=== PATIENT | female | born 1965 | race Caucasian/White ===

== ENCOUNTER 2018-06-10 16:48 | Inpatient (IN) ==
[2018-06-10] MEDS ORDERED: Naloxone 0.4 MG/ML INJ IVP PRN (18:27)
[2018-06-10] MEDS: 0.9 % Sodium Chloride 1,000 ML IVC SCH ×2 (18:55→22:17)
[2018-06-10] MEDS: Thiamine (B-1) 100 MG in D5% in Water 50 ML IVPB SCH (18:57)
[2018-06-10] MEDS ORDERED: Albuterol 2.5 MG/3 ML NEBULIZER IH PRN (19:37)
[2018-06-10 19:38] LABS: INR 0.9; Prothrombin Time 10.4 Seconds (9.4-12.1)
[2018-06-10 19:40] LABS: Activated Partial Thrombo Time 24.4 Seconds (26.0-36.0)
[2018-06-10 19:43] LABS: Basophils % 0.3 %; Eosinophils # 0.4 K/mcL (0.0-0.6); Eosinophils % 3.6 %; Hematocrit 35.2 % (35.3-44.9); Hemoglobin 10.9 g/dL (11.5-15.4); Immature Granulocytes % 0.2 % (0-4); Lymphocytes # 3.5 K/mcL (0.6-4.6); Lymphocytes % 34.8 %; Mean Corpuscular Hemoglobin 26.6 pg (28.0-33.3); Mean Corpuscular Volume 85.9 fL (83.0-100.0); Mean Platelet Volume 9.6 fL (9.4-12.4); Monocytes # 0.7 K/mcL (0.0-1.3); Monocytes % 6.6 %; Neutrophils # 5.4 K/mcL (1.6-8.9); Platelet Count 189 K/mcL (140-400); Red Cell Distribution Width 13.1 % (11.5-14.5); Segmented Neutrophils % 54.5 %
[2018-06-10] MEDS ORDERED: Norepinephrine 4 MG in D5% in Water 250 ML IVC SCH (19:45)
[2018-06-10 19:53] LABS: VBG HCO3 21 mEq/L (21-27); VBG PCO2 56 mmHg (41-51); VBG PH 7.18 pH Units (7.32-7.42); VBG PO2 69 mmHg (25-50)
[2018-06-10] MEDS: Folic Acid 1 MG TABLET PO SCH (19:53)
[2018-06-10] MEDS: Hydrocortisone Sodium Succ 100 MG/2 ML VIAL IVP SCH ×2 (19:53→23:29)
[2018-06-10] MEDS ORDERED: Levofloxacin 750 MG/150 ML 750 MG/150 ML BAG IVPB SCH (20:00)
[2018-06-10 20:08] LABS: Acetaminophen < 10 mcg/mL (10-20); Alanine Aminotransferase 13 Units/L (7-52); Albumin/Globulin Ratio 1.4 (1.1-2.2); Alkaline Phosphatase 79 Units/L (34-104); Aspartate Amino Transferase 15 Units/L (13-39); BUN/Creatinine Ratio 18 (6-26); Bilirubin,Total 0.2 mg/dL (0.3-1.0); Blood Urea Nitrogen 34 mg/dL (6-20); Calcium 7.5 mg/dL (8.6-10.3); Carbon Dioxide 20 mEq/L (23-29); Chloride 113 mEq/L (98-107); Globulin 2.1 g/dL (2.4-3.5); Glucose 109 mg/dL (70-105); Magnesium 1.8 mg/dL (1.6-2.6); Osmolality,Calculated 298 (280-300); Phosphorous 5.4 mg/dL (2.7-4.5); Potassium 4.3 mEq/L (3.5-5.1); Salicylate < 2.5 mg/dL (15.0-30.0); Sodium 140 mEq/L (136-145); Total Protein 5.1 g/dL (6.4-8.9); eGFR For Non-African Americans 27 (> 60)
[2018-06-10 20:11] LABS: ABG Base Excess -7 mEq/L (-2 to 3); ABG HCO3 19 mEq/L (21-27); ABG Oxygen Saturation 96 % (95-98); ABG PCO2 42 mmHg (35-45); ABG PH 7.27 pH Units (7.32-7.45); ABG PO2 94 mmHg (85-104); ABG TCO2 21 mEq/L (20-26)
[2018-06-10] MEDS: Ipratropium/Albuterol Neb 3 ML IH SCH ×2 (20:12→23:59)
[2018-06-10 20:20] LABS: Thyroid Stimulating Hormone 0.656 mcIU/mL (0.340-5.600)
--- NOTE | 2018-06-10 20:53 | Internal Med History&Physical ---
Date of Encounter: 06/10/18 Time of Encounter: 19:30 Internal Medicine - H&P: HPI Chief complaint: near syncope; shock Admitted From: Hospital to Hospital Transfer Plans for Post Hospital Care: Home History of present illness: Ms. Bills is a 53 year old female who presents in transfer from [facility] Emergency Department. She presented there with complaints and sensation of near syncope. Reportedly, her felt that she passed out but patient denied it. She was quite hypotensive and appeared to be in hypovolemic shock when she presented there. She was fluid resuscitated and had a central line placed by the ER physician. She was then transferred to [facility] ICU for ongoing care. When she arrived here to the intensive care unit, I saw her shortly after arrival. She remains hypotensive but has stable MAPS above 60. She is somnolent but easily arousable. She appears be confused at times and then coherent most of the time. After a prolonged discussion with patient, she admi ts to taking strips of Suboxone and other street drugs with intention of "getting high". She denies any intent of trying to hurt herself or kill herself. She denies any fevers or chills. She has had a cough and bronchitis, however. She had been on outpatient antibiotics recently for her bronchitis. She appears to be quite dehydrated with very dry mucous membranes and skin tenting on exam. She admits to having had some nausea and vomiting. I reviewed some old records and note that she had bilateral adrenal adenomas on recent MRI imaging. She confirmed the adenomas. She denies any history of adrenal insufficiency, however, and states that she has never heard of that term. She does not take any chronic steroids. She does admit to heavy smoking and history of COPD. I reviewed her labs from [place] and note that she has acute renal failure. However, after fluid resuscitation, her renal function is already improving with repeat labs here in the ICU. Reportedly, she had chest pain upon presentation to the ER at [place]. She denies any chest pain presently. Her initial troponin was negative. On repeat EKG, it appears to be negative for ischemia. Regarding drugs of abuse, she denies any alcohol use, salicylate abuse, acetaminophen abuse, ethylene glycol abuse, or other prescription drug abuse. She states she uses Suboxone roughly once a week and that she buys it on the street. She denies any other drugs of abuse. Her drug screen is positive for amphetamines as well as opiates. She denies use of amphetamines, however. Past Med Surg Social Fam HX - Past Medical History Attestation: Yes The following information was validated with the patient. Source: patient, old records reviewed, other ([facility] records) Medical history: asthma, COPD, diabetes, GERD, hypertension Additional medical history: precancerous polyps Psychiatric history: depression - Past Surgical History Surgical History: , hysterectomy, other Additional surgical history: carpal tunnes, rhinoplasty. colonoscopy - Social History Smoking Status: Current every day smoker Smokeless Tobacco Status: No Alcohol use: none Drug use: opiates Current living situation: Home, With Family Activity Level: Independent ambulation Recent Out of Country Travel Within the Last 8 Weeks: No - Family History Mother Hx Family Respiratory Disorders: No Hx Family Endocrine Disorder: No Father Hx Family Respiratory Disorders: Yes Hx Family Genitourinary Disorders: No Internal Medicine - H&P: Meds Albuterol Sulfate [Proair Hfa] 1 puff IH QID PRN 11/12/15 [History] Dicyclomine [Bentyl] 20 mg PO QID PRN #20 capsule 11/12/15 [Rx] Cetirizine HCl [Zyrtec] 10 mg PO DAILY 10/02/16 [History] Fluticasone/Salmeterol [Advair Hfa 115-21 Mcg Inhaler] 12 gm IH DAILY 10/02/16 [History] Ipratropium/Albuterol Neb [Duoneb] 3 ml IH Q6HR PRN 10/02/16 [History] Paroxetine HCl [Paxil] 60 mg PO DAILY 10/02/16 [History] Tiotropium [Spiriva] 18 mcg IH 0700 10/02/16 [History] clonazePAM [Klonopin] 0.5 mg PO BID 10/02/16 [History] Tizanidine HCl 4 mg PO TID #15 tablet 09/22/17 [Rx] Atenolol [Tenormin] 25 mg PO DAILY 06/10/18 [History] Lisinopril [Zestril] 20 mg PO DAILY 06/10/18 [History] Allergy/AdvReac Type Severity Reaction Status Date / Time Penicillins [PCN] Allergy Anaphylaxis Verified 11/18/17 11:53 - Constitutional Constitutional: no chills, no fever(s), no night sweats - EENT Eyes: no blurry vision, no change in vision Ears: no ear pain, no tinnitus Nose, mouth and throat: no nasal congestion, no sinus pressure, no sore throat - Cardiovascular Cardiovascular ROS IM: lightheadedness, other (+ near syncope), no chest pain, no dyspnea, no orthopnea, no syncope - Respiratory Respiratory: cough, wheezing, chest congestion, no hemoptysis, no excessive phlegm production, no change in phlegm color, no pain with cough - Gastrointestinal Gastrointestinal: heartburn, nausea, vomiting, no abdominal pain, no diarrhea, no hematemesis, no hematochezia, no melena - Genitourinary Genitourinary: no dysuria, no flank pain, no hematuria Additional comments: + decreased urine output - Musculoskeletal Musculoskeletal ROS IM: arthralgias, back pain, no myalgias - Integumentary Integumentary IM: no rash, no jaundice - Neurological Neurological ROS: confusion, weakness, no convulsions, no dizziness, no focal weakness, no frequent falls, no headache(s) - Psychiatric Psychiatric: behavioral changes, confusion, no anxiety, no auditory hallucinations, no depression, no homicidal ideation, no suicidal ideation, no visual hallucinations - Endocrine Endocrine IM: no cold intolerance, no heat intolerance, no polydipsia, no polyuria - Allergic/Immunologic Allergic/Immunologic: wheezing, no GI upset with certain foods - Constitutional Vitals: Temp Pulse Resp BP Pulse Ox 98.3 F 57 17 98/59 98 06/10/18 18:23 06/10/18 20:00 06/10/18 20:00 06/10/18 20:00 06/10/18 18:23 General appearance: Present: cooperative, disheveled, A&O X 2 Exam: somnolent, easily arousable, confused intermittently and then responds appropri ately at times looks moderately dehydrated - Head Head exam: Present: atraumatic, normal inspection - Eye Eye exam: Present: EOMI, PERRL (pupils dilated at roughly 5-6 mm; react to light appropriately). Absent: scleral icterus Pupils: Present: normal accommodation - ENT ENT exam: Present: mucous membranes dry, normal exam, normal oropharynx Additional comments: very dry mucous membranes - Neck Neck exam general surgery: Present: full ROM, supple. Absent: tenderness, nuchal rigidity, thyromegaly - Respiratory Respiratory exam: Present: CTAB, rhonchi. Absent: chest wall tenderness, rales, respiratory distress, wheezes - Cardiovascular Cardiovascular exam: Present: distant heart sounds, RRR, +S1, +S2. Absent: diastolic murmur, systolic murmur Additional comments: ectopic beats noted at times - GI/Abdominal GI/Abdominal exam: Present: normal bowel sounds, soft. Absent: guarding, hepatomegaly, mass, rebound, splenomegaly, tenderness - Extremities Exam Extremities exam: Present: full ROM, warm, radial pulses palpable and symmetrical. Absent: calf tenderness, joint swelling, normal capillary refill (slightly delayed at 3 seconds), mottling, pedal edema, tenderness - Back Exam Back exam: Absent: CVA tenderness (L), CVA tenderness (R) - Neurological Exam Neurological exam: Present: alert, CN II-XII intact, strengths equal and symetr throughout. Absent: motor sensory deficit, oriented X3 (oriented x 2 and i ntermittenty confused), no focal deficits, facial droop, speech deficit - Psychiatric Psychiatric exam: Present: agitated, anxious. Absent: depressed, flat affect, homicidal ideation, suicidal ideation - Skin Skin exam: Present: dry, intact, warm. Absent: rash Additional comments: + skin tenting Internal Med - H&P Results - Labs CBC & Chem 7: 06/10/18 19:25 06/10/18 19:25 Labs: Short CBC 06/10/18 Range/Units 19:25 WBC 10.0 (4.3-11.1) K/mcL Hgb 10.9 L (11.5-15.4) g/dL Hct 35.2 L (35.3-44.9) % Plt Count 189 (140-400) K/mcL Neutrophils # 5.4 (1.6-8.9) K/mcL BMP 06/10/18 19:25 Sodium 140 Potassium 4.3 Chloride 113 H Carbon Dioxide 20 L BUN 34 H Creatinine 1.93 H Glucose 109 H Calcium 7.5 L Liver Function 06/10/18 Range/Units 19:25 Total Bilirubin 0.2 L (0.3-1.0) mg/dL AST 15 (13-39) Units/L ALT 13 (7-52) Units/L Alkaline Phosphatase 79 (34-104) Units/L Albumin 3.0 L (3.5-5.7) g/dL - ABG Interpretation Interpretation: ABG interpreted by me ABG results: 06/10/18 06/10/18 19:45 20:08 ABG pH 7.27 L ABG pCO2 42 ABG pO2 94 ABG HCO3 19 L ABG Total CO2 21 ABG O2 Saturation 96 ABG Base Excess -7 L VBG pH 7.18 L* VBG pCO2 56 H VBG pO2 69 H VBG HCO3 21 Interpretation: metabolic acidosis (non-gap) - EKG Data -: EKG Interpreted by Myself EKG shows normal: sinus rhythm - EKG Data Prior EKG available for review: no EKG comments: 06/10/18 21:24 Sinus rhythm; PVC and PAC, no acute ST-T changes - Diagnostic Studies Chest x-ray Status: image reviewed by me (large heart otherwise negative) - Assessment and plan (1) Hypovolemic shock Current Visit: Yes Status: Acute Assessment and plan: 1. Patient fluid resuscitated at [place] and in ICU with a total of 4 liters saline boluses. 2. Continue MIV fluids. 3. Levophed ordered for hemodynamic support. 4. Stress dose steroids ordered given her presentation of shock and history of adrenal adenomas. 5. Blood cultures ordered and antibiotics started for the remote possibility of septic shock (low suspicion). 6. Will trend lactate levels and monitor hemodynamically. (2) Overdose Current Visit: Yes Status: Acute Assessment and plan: 1. Patient admits to Suboxone abuse "on the street" in an attempt "to get high". 2. She denies any attempt to hurt or kill herself. 3. Will monitor in ICU closely. 4. Patient protecting her airway and easily arousable presently. Should that change, we will secure airway and ventilate if necessary. Qualifiers: Encounter type: initial encounter Injury intent: accidental or unintentional Qualified Code(s): T50.901A - Poisoning by unspecified drugs, medicaments and biological substances, accidental (unintentional), initial encounter (3) Acute renal failure Current Visit: Yes Status: Acute Assessment and plan: 1. Likely pre-renal etiology from hypovolemic shock. 2. S/P fluid resuscitation. 3. Continue MIV. 4. Monitor I/O and urine output. 5. Nephrology on consult. 6. CT abdomen/pelvis to rule out obstructive uropathy. Qualifiers: Acute renal failure type: unspecified Qualified Code(s): N17.9 - Acute kidney failure, unspecified (4) Near syncope Current Visit: Yes Status: Acute Assessment and plan: 1. Likely to drug abuse in the setting of hypovolemic shock. 2. Will monitor on telemetry and hemodynamically. 3. Will trend troponins and EKG's. 4. ECHO ordered. 5. 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 (5) DVT prophylaxis Current Visit: Yes Status: Acute Assessment and plan: 1. Heparin SQ. - Time Spent With Patient Note: 50 minutes critical care time spent assessing, examining, and treating patient in the ICU.
[2018-06-10 21:23] LABS: Bilirubin,Urine Negative (Negative); Blood,Urine Small (Negative); Clarity,Urine Clear (Clear); Color,Urine Yellow (Yellow); Glucose,Urine (UA) Normal (Normal); Ketones,Urine Negative (Negative); Leukocyte Esterase,Urine Negative (Negative); Nitrite,Urine Negative (Negative); Protein,Urine Trace mg/dL (Neg-Trace); Urobilinogen,Urine Normal (Normal)
[2018-06-10 21:27] LABS: Bacteria,Urine None Seen per hpf (None-Few); Hyaline Casts,Urine None Seen per lpf (None-Few); Squamous Epithelial Cell,Urine Moderate per lpf (None-Few); WBC,Urine 0-3 per hpf (0-3)
[2018-06-10 21:45] LABS: Troponin I < 0.03 ng/mL (< 0.04)
[2018-06-10] MEDS: *HR* Heparin 5,000 UNIT/ML VIAL SQ SCH (23:29)
[2018-06-11 03:15] LABS: Basophils % 0.3 %; Hematocrit 34.1 % (35.3-44.9); Hemoglobin 10.8 g/dL (11.5-15.4); Immature Granulocytes % 0.3 % (0-4); Lymphocytes % 12.8 %; Mean Corpuscular HGB Conc 31.7 g/dL (31.6-35.5); Mean Corpuscular Hemoglobin 26.5 pg (28.0-33.3); Mean Corpuscular Volume 83.8 fL (83.0-100.0); Mean Platelet Volume 9.5 fL (9.4-12.4); Monocytes # 0.1 K/mcL (0.0-1.3); Monocytes % 1.6 %; Neutrophils # 6.8 K/mcL (1.6-8.9); Platelet Count 183 K/mcL (140-400); Red Blood Count 4.07 M/mcL (3.82-4.97); Red Cell Distribution Width 13.1 % (11.5-14.5)
[2018-06-11 03:34] LABS: Albumin 3.1 g/dL (3.5-5.7); Albumin/Globulin Ratio 1.4 (1.1-2.2); Bilirubin,Total 0.4 mg/dL (0.3-1.0); Calcium 7.9 mg/dL (8.6-10.3); Globulin 2.2 g/dL (2.4-3.5); Potassium 4.8 mEq/L (3.5-5.1); Total Protein 5.3 g/dL (6.4-8.9)
[2018-06-11] MEDS: Ipratropium/Albuterol Neb 3 ML IH SCH ×5 (04:12→20:52)
[2018-06-11 05:30] LABS: ABG Base Excess -5 mEq/L (-2 to 3); ABG HCO3 22 mEq/L (21-27); ABG Oxygen Saturation 89 % (95-98); ABG PCO2 47 mmHg (35-45); ABG PH 7.28 pH Units (7.32-7.45); ABG PO2 64 mmHg (85-104); ABG TCO2 23 mEq/L (20-26)
[2018-06-11] MEDS: Hydrocortisone Sodium Succ 100 MG/2 ML VIAL IVP SCH ×2 (05:57→12:09)
[2018-06-11] MEDS: Pantoprazole 40 MG VIAL IVP SCH ×2 (05:57→17:04)
--- NOTE | 2018-06-11 08:05 | Internal Med Progress Note ---
Hospitalist Progress Note - Encounter Date of Encounter: 06/11/18 Time of Encounter: 08:00 - Subjective Interval History: Patient seen and examined this morning. No acute events. Has heller and Lt subclavian line. Alert awake. Has not been on pressors per nurse. Currently without any complains. BP stable and saturating well. Afebrile. Denies fever, Chills, N/V. - Exam Vitals: Temp Pulse Resp BP Pulse Ox 97.8 F 59 14 120/62 98 06/11/18 06:00 06/11/18 07:00 06/11/18 07:00 06/11/18 07:00 06/11/18 07:00 Exam: General: In no acute distress. Conversant. Obese. Respiratory exam: CTAB. no accessory muscle use, rales, rhonchi, wheezes Cardiovascular exam: RRR, +S1, +S2. no murmur, gallop, rubs. Lt subclavian in place. GI/Abdominal exam: Non-tender, Non-distended, normal bowel sounds, soft, no peritoneal signs. Heller in place Extremities exam: full ROM, no pedal edema, warm, pulses palpable in b/l lower extremities. no calf tenderness Neurological exam: CN II-XII intact, AO X3, no focal deficits. no pronater drift, facial droop, speech deficit Skin exam: No skin rash, ulcer, purpura or ecchymosis. - Assessment and Plan (1) Near syncope Current Visit: Yes Status: Inactive (2) Acute renal failure Current Visit: Yes Status: Inactive (3) Overdose Current Visit: Yes Status: Acute (4) DVT prophylaxis Current Visit: Yes Status: Acute (5) Hypovolemic shock Current Visit: Yes Status: Acute - Summary of Assessment and Plan Summary of Assessment and Plan: Hypovolemic shock - s/p 4 liters saline boluses. - Received stress dose steroid and antibiotics for possibly infection. - Adrenal adenoma stable compared to previous imaging 2 yrs ago. Was being monitored by PCP. Septic shock less likely. CXR unremarkable. CT without signs of infection. UA and Head CT unremarkable. Lactate <1 x2. - Has not received Levophed per nurse. BP now stable for without levophed. Will remove TLC and Heller. Transfer to tele floor. - c/w levaquin for now. f/u Blood cultures. Will discontinue steroid and monitor. - Unclear reason for hypovolemia. Was on atenolol and lisinopril for BP. Will hold antihypertensives for now. No signs/symptoms of acute blood loss. Possibly related to unknown drug use. Overdose - Admits to using Suboxone "on the street to get high and try how it feels". - Utox postive for Opitates and amphetamines. - no suicidal or homicidal ideation. - Stable from respiratory and hemodynamic standpoint. - Discussed about abstaining from drug experimentation, abuse and risk - c/w prn Narcan - Monitor respiratory status. SKYLAR - Likely pre-renal - c/w IVF - Strict I&O - CT abdomen/pelvis without obstruction Near syncope - Likely related drug abuse in the setting of hypovolemic shock. - c/w tele - troponin negative x3. EKG non-ischemic. - f/u ECHO - CT head at [facility] without acute finding. 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 COPD - cw duonebs HTN - Now stable - Monitor - Hold antihypertensives. DM - Hold home medication - c/w accuchecks and sliding scale insulin. DVT prophylaxis - Heparin SQ. - Time Spent with Patient Total time spent is greater than 50% in coordination of care (as documented) at patient's floor/unit and/or counseling patient: Internal Medicine: Result - Labs CBC & Chem 7: 06/11/18 03:03 06/11/18 03:03 Labs: Short CBC 06/10/18 06/11/18 Range/Units 19:25 03:03 WBC 10.0 8.0 (4.3-11.1) K/mcL Hgb 10.9 L 10.8 L (11.5-15.4) g/dL Hct 35.2 L 34.1 L (35.3-44.9) % Plt Count 189 183 (140-400) K/mcL Neutrophils # 5.4 6.8 (1.6-8.9) K/mcL BMP 06/10/18 06/11/18 19:25 03:03 Sodium 140 139 Potassium 4.3 4.8 Chloride 113 H 113 H Carbon Dioxide 20 L 21 L BUN 34 H 27 H Creatinine 1.93 H 1.16 Glucose 109 H 190 H Calcium 7.5 L 7.9 L Cardiac Enzymes 06/10/18 06/11/18 Range/Units 19:25 03:03 Troponin I < 0.03 < 0.03 (< 0.04) ng/mL Liver Function 06/10/18 06/11/18 Range/Units 19:25 03:03 Total Bilirubin 0.2 L 0.4 (0.3-1.0) mg/dL AST 15 28 (13-39) Units/L ALT 13 28 (7-52) Units/L Alkaline Phosphatase 79 85 (34-104) Units/L Albumin 3.0 L 3.1 L (3.5-5.7) g/dL Urine 06/10/18 Range/Units 21:00 Urine Color Yellow (Yellow) Urine Clarity Clear (Clear) Urine pH 6.0 (5.0-8.0) pH Units Ur Specific [place] 1.010 (1.010-1.025) Urine Protein Trace (Neg-Trace) mg/dL Urine Glucose (UA) Normal (Normal) mg/dL - ABG Interpretation ABG results: ABG ABG pH 7.28 pH Units (7.32-7.45) L 06/11/18 05:27 ABG pCO2 47 mmHg (35-45) H 06/11/18 05:27 ABG pO2 64 mmHg (85-104) L 06/11/18 05:27 ABG O2 Saturation 89 % (95-98) L 06/11/18 05:27 PT/INR, D-dimer PT 10.4 Seconds (9.4-12.1) 06/10/18 18:27 - Impressions Impressions Abdomen/Pelvis CT 06/10/18 18:30 IMPRESSION: 1. Diverticulosis coli without CT evidence of acute diverticulitis. 2. Mild calcific atherosclerosis aorta. 3. Bilateral adrenal adenomas, benign finding requiring no additional evaluation or follow-up. Stable appearance compared with 11/12/2015. D/ / Fritz Doherty / Fritz Doherty Interpreting Provider: Fritz Doherty Consult Discharge Plan - Plan Referrals: NONE,PCP [Primary Care Provider] - (2) Acute renal failure Qualifiers: Acute renal failure type: unspecified Qualified Code(s): N17.9 - Acute kidney failure, unspecified (3) Overdose Qualifiers: Encounter type: initial encounter Injury intent: accidental or unintentional Qualified Code(s): T50.901A - Poisoning by unspecified drugs, medicaments and biological substances, accidental (unintentional), initial encounter
--- NOTE | 2018-06-11 08:59 | Nephrology Consult Note ---
Date of Encounter: 06/11/18 Time of Encounter: 09:25 Assessment and Plan (1) SKYLAR (acute kidney injury) Status: Acute Appears to be clearly pre-renal. Trending nicely better without intervention of dialysis, so I would recommend continuing IVF as able. I recommend continuing to follow a renal protective and supportive strategy, that includes dosing medications by creatinine clearance, strict I's and O's, collecting daily weights, and avoiding nephrotoxins (such as NSAIDs). I counseled her for >50% of the encounter to avoid NSAIDs for now and she will need to discuss this with her PCP. She is doing so well, that her AKIs now nearly resolved. I will sign off at this point, but please feel free to call and reconsult the [facility] group if needed. I am always happy to help. Thank you. (2) Hypovolemic shock Status: Acute Appreciate the ICU team. (3) Overdose Status: Acute Not consistent with ethylene glycol or other renal toxic alcohol. No urgent indications for CLINICAL RESOURCE DIRECTOR. Qualifiers: Encounter type: initial encounter Injury intent: accidental or unintentional Qualified Code(s): T50.901A - Poisoning by unspecified drugs, medicaments and biological substances, accidental (unintentional), initial encounter (4) Hypotension Status: Acute Improving with IVF. Qualifiers: Hypotension type: unspecified hypotension type Qualified Code(s): I95.9 - Hypotension, unspecified History of Present Illness - Reason for Consult Consult date: 06/11/18 Acute Kidney Injury Requesting physician: Ling López - Chief Complaint SKYLAR - History of Present Illness Marah Bills is a very pleasant 53 y/o WF with a pmh of back pain and substance use who presented as a transfer with severe hypotension and SKYLAR for which Nephrology was consulted. She affirmed taking Suboxone and then developed severe hypotension. She also affirmed NSAID routine use; which she said is prescribed to her. She denied having any need to see a supervisor contact lens previously. She affirmed having a diminished appetite, but she did not affirm having N/V/D or CP or shortness of breath. Yesterday late afternoon, I spoke with both the Hospitalist and transfer center, and I provided my recommendations by phone. FHx: no relatives with ESRD. Past Med Surg Social Fam HX - Past Medical History Medical history: asthma, COPD, diabetes, GERD, hypertension Additional medical history: precancerous polyps Psychiatric history: depression - Past Surgical History Surgical History: , hysterectomy, other Additional surgical history: carpal tunnes, rhinoplasty. colonoscopy - Social History Smoking Status: Current every day smoker Smokeless Tobacco Status: No Alcohol use: none Drug use: opiates - Family History Mother Hx Family Respiratory Disorders: No Hx Family Endocrine Disorder: No Father Hx Family Respiratory Disorders: Yes Hx Family Genitourinary Disorders: No Medications and Allergies Albuterol Sulfate [Proair Hfa] 1 puff IH QID PRN 11/12/15 [History] Dicyclomine [Bentyl] 20 mg PO QID PRN #20 capsule 11/12/15 [Rx] Cetirizine HCl [Zyrtec] 10 mg PO DAILY 10/02/16 [History] Fluticasone/Salmeterol [Advair Hfa 115-21 Mcg Inhaler] 12 gm IH DAILY 10/02/16 [History] Ipratropium/Albuterol Neb [Duoneb] 3 ml IH Q6HR PRN 10/02/16 [History] Paroxetine HCl [Paxil] 60 mg PO DAILY 10/02/16 [History] Tiotropium [Spiriva] 18 mcg IH 0700 10/02/16 [History] clonazePAM [Klonopin] 0.5 mg PO BID 10/02/16 [History] Tizanidine HCl 4 mg PO TID #15 tablet 09/22/17 [Rx] Atenolol [Tenormin] 25 mg PO DAILY 06/10/18 [History] Lisinopril [Zestril] 20 mg PO DAILY 06/10/18 [History] BuPROPion XL (24 HR) [Wellbutrin Xl] 150 mg PO DAILY 06/11/18 [History] Gabapentin [Neurontin] 300 mg PO TID 06/11/18 [History] Metformin HCl 500 mg PO BID 06/11/18 [History] Allergy/AdvReac Type Severity Reaction Status Date / Time Penicillins [PCN] Allergy Anaphylaxis Verified 11/18/17 11:53 Review of Systems All Systems: reviewed and no additional remarkable complaints except as stated Exam - Vital Signs Vital signs: Initial Vital Signs Temp Pulse Resp BP Pulse Ox 98.3 F 66 18 92/59 98 06/10/18 18:23 06/10/18 18:23 06/10/18 18:23 06/10/18 18:23 06/10/18 18:23 Vital Signs - Last 8 Hours Temp Pulse Resp BP Pulse Ox 06/11/18 08:12 98.1 F 06/11/18 07:00 59 14 120/62 98 06/11/18 06:00 97.8 F 60 14 124/74 98 06/11/18 05:00 59 13 151/73 99 06/11/18 04:12 14 100 06/11/18 03:58 57 12 125/69 100 06/11/18 03:00 97.6 F 59 21 125/72 100 06/11/18 02:00 61 15 122/71 100 06/11/18 01:00 EST 64 13 122/69 99 Intake and Output 06/11/18 06/11/18 06/11/18 00:59 07:59 15:59 Intake Total Output Total 300 / 300 Balance -300 / -300 Intake: IV Fluids 0.9 % Sodium Chloride 1,000 ML @ 150 mls/hr IVC .[id number] [facility] Rx #:[id number] Levophed 4 MG In Dextrose 5% 250 ML @ 5 MCG/MIN 19.05 mls/hr IVC CONT MIKAYLA Rx#:[id number] Vitamin B-1 100 MG In Dextrose 5% 50 ML @ 50 mls/hr IVPB DAILY [facility] Rx#:[id number] Oral Output: Catheter 300 / 300 Other: Weight Blood Glucose* 135 Patient Weight 06/11/18 22:59 Weight 102.8 kg - General Appearance General appearance: well-developed, well-nourished, appears started age EENT: ATNC, PERRL, mucous membranes moist Neck: supple Respiratory: clear Cardiology: no edema, regular rate, regular rhythm, normal S1, normal S2 Gastrointestinal: normoactive bowel sounds, no tenderness, no guarding Integumentary: warm and dry Neurologic: no focal deficit, no asterixis, alert and oriented x3 Musculoskeletal: no deformities, no erythema, no cyanosis Psychiatric: mood/affect appropriate, cooperative Results - Lab Results 06/12/18 03:26 06/12/18 03:26 Most recent lab results ABG pH 7.28 pH Units (7.32-7.45) L 06/11/18 05:27 ABG pCO2 47 mmHg (35-45) H 06/11/18 05:27 ABG pO2 64 mmHg (85-104) L 06/11/18 05:27 ABG HCO3 22 mEq/L (21-27) 06/11/18 05:27 ABG O2 Saturation 89 % (95-98) L 06/11/18 05:27 Calcium 7.9 mg/dL (8.6-10.3) L 06/11/18 03:03 Phosphorus 5.4 mg/dL (2.7-4.5) H 06/10/18 19:25 Magnesium 1.8 mg/dL (1.6-2.6) 06/11/18 03:03 I reviewed her labs, vitals, med list, progress notes, imaging: SKYLAR trending better with IVF. Consult Discharge Plan - Plan Referrals: NONE,PCP [Primary Care Provider] -
[2018-06-11] MEDS: Folic Acid 1 MG TABLET PO SCH (09:03)
[2018-06-11] MEDS: Thiamine (B-1) 100 MG in D5% in Water 50 ML IVPB SCH (09:03)
[2018-06-11] MEDS: *HR* Heparin 5,000 UNIT/ML VIAL SQ SCH ×2 (09:03→16:51)
[2018-06-11] MEDS: Insulin LISPRO 300 UNITS/3 ML VIAL SQ SCH (16:52)
[2018-06-11] MEDS: Ringers Solution, Lactated 1,000 ML IVC SCH (16:53)
[2018-06-12] MEDS: Ipratropium/Albuterol Neb 3 ML IH SCH (00:33)
[2018-06-12] MEDS: *HR* Heparin 5,000 UNIT/ML VIAL SQ SCH ×2 (02:47→07:56)
[2018-06-12] MEDS: Ringers Solution, Lactated 1,000 ML IVC SCH ×2 (02:48→09:26)
[2018-06-12 04:04] LABS: BUN/Creatinine Ratio 21 (6-26); Blood Urea Nitrogen 19 mg/dL (6-20); Calcium 8.5 mg/dL (8.6-10.3); Carbon Dioxide 23 mEq/L (23-29); Chloride 112 mEq/L (98-107); Glucose 153 mg/dL (70-105); Osmolality,Calculated 291 (280-300); Potassium 3.9 mEq/L (3.5-5.1); Sodium 138 mEq/L (136-145); eGFR For Non-African Americans > 60 (> 60)
[2018-06-12 04:12] LABS: Basophils % 0.3 %; Eosinophils # 0.1 K/mcL (0.0-0.6); Eosinophils % 1.7 %; Hematocrit 32.6 % (35.3-44.9); Hemoglobin 10.4 g/dL (11.5-15.4); Immature Granulocytes % 0.1 % (0-4); Lymphocytes # 3.4 K/mcL (0.6-4.6); Lymphocytes % 44.6 %; Mean Corpuscular HGB Conc 31.9 g/dL (31.6-35.5); Mean Corpuscular Hemoglobin 26.5 pg (28.0-33.3); Mean Corpuscular Volume 83.2 fL (83.0-100.0); Mean Platelet Volume 10.1 fL (9.4-12.4); Monocytes # 0.5 K/mcL (0.0-1.3); Monocytes % 6.5 %; Neutrophils # 3.6 K/mcL (1.6-8.9); Platelet Count 189 K/mcL (140-400); Red Blood Count 3.92 M/mcL (3.82-4.97); Red Cell Distribution Width 13.2 % (11.5-14.5); Segmented Neutrophils % 46.8 %
[2018-06-12] MEDS: Pantoprazole 40 MG VIAL IVP SCH (05:19)
[2018-06-12] MEDS: Insulin LISPRO 300 UNITS/3 ML VIAL SQ SCH ×2 (07:35→11:36)
[2018-06-12] MEDS: Folic Acid 1 MG TABLET PO SCH (07:55)
[2018-06-12] MEDS: Thiamine (B-1) 100 MG in D5% in Water 50 ML IVPB SCH (07:56)
[2018-06-12] MEDS ORDERED: Levofloxacin 750 MG/150 ML 750 MG/150 ML BAG IVPB SCH (09:00)
[2018-06-12] MEDS ORDERED: Tiotropium 18 MCG inhalation IH SCH (10:45)
[2018-06-12] MEDS ORDERED: Lisinopril 20 MG TABLET PO SCH (10:45)
[2018-06-12] MEDS ORDERED: Budesonide/Formoterol 160/4.5 1 PUFF INH IH SCH (10:45)
[2018-06-12 11:45] VITALS: BP 136/78
--- NOTE | 2018-06-12 13:36 | Discharge Summary ---
Orders not resulted at time of discharge: Pending orders 06/10/18 19:15 Culture,Blood [BC] Stat Ethylene Glycol Stat Methanol Stat 06/11/18 06:00 EKG [ECG 12 lead ECG] [ECG] AM 0600 Date of Encounter: 06/12/18 Time of Encounter: 13:32 - Discharge Diagnosis (1) Near syncope Priority: Primary Status: Inactive (2) Acute renal failure Priority: Primary Status: Inactive Qualifiers: Acute renal failure type: unspecified Qualified Code(s): N17.9 - Acute kidney failure, unspecified (3) Overdose Priority: Primary Status: Acute Qualifiers: Encounter type: initial encounter Injury intent: accidental or unintentional Qualified Code(s): T50.901A - Poisoning by unspecified drugs, medicaments and biological substances, accidental (unintentional), initial encounter (4) DVT prophylaxis Priority: Secondary Status: Acute (5) Hypovolemic shock Priority: Primary Status: Acute (6) Arthritis of left knee Priority: Secondary Status: Acute Hospital course: Ms. Bills is a 53 year old female female with past medical history of COPD, diabetes, GERD, hypertension who was transferred from [facility] with the hypovolemic shock. Patient was directly admitted to ICU. Patient had central line placed from [place] and received 4 L of IV fluids. He poorly patient had passed out as per the . Patient became more alert in ICU later when the she confirmed she took Suboxone and other street drugs with intention of getting high. CT abdomen was done which showed bilateral adrenal adenomas which patient was aware is therefore years and was stable on imaging as well. Patient received the stress dose steroids with IV fluids and was started on IV pressors and IV Levaquin. Head CT was unremarkable and chest x-ray did not show any infiltrates.. Patient did not require IV pressors however throughout the night. Troponins were negative EKG was unremarkable. Patient's urine toxicology screen was positive for opiates and amphetamines. Patient had also [place] I which resolved with IVF. CT abdomen did not show any obstruction. Patient received treatment for her diabetes blood pressure and COPD in the hospital Hospital. Patient blood pressures remained stable during her stay on her next 2 days. Blood culture remained negative. Patient received 3 days of Levaquin. She was afebrile and did not have any leukocytosis. We will stop further antibiotics. We will discharge patient home today with walker as recommended by PT for her left knee arthritis. Discharge discussed with: patient, nurse, case management - Time Spent with Patient Total time spent providing and/or coordinating discharge services: Greater than 30 minutes (45) - Discharge Medications Home Medications: Albuterol Sulfate [Proair Hfa] 1 puff IH QID PRN 11/12/15 [History] Dicyclomine [Bentyl] 20 mg PO QID PRN #20 capsule 11/12/15 [Rx] Cetirizine HCl [Zyrtec] 10 mg PO DAILY 10/02/16 [History] Fluticasone/Salmeterol [Advair Hfa 115-21 Mcg Inhaler] 12 gm IH DAILY 10/02/16 [History] Ipratropium/Albuterol Neb [Duoneb] 3 ml IH Q6HR PRN 10/02/16 [History] Paroxetine HCl [Paxil] 60 mg PO DAILY 10/02/16 [History] Tiotropium [Spiriva] 18 mcg IH 0700 10/02/16 [History] clonazePAM [Klonopin] 0.5 mg PO BID 10/02/16 [History] Tizanidine HCl 4 mg PO TID #15 tablet 09/22/17 [Rx] Atenolol [Tenormin] 25 mg PO DAILY 06/10/18 [History] Lisinopril [Zestril] 20 mg PO DAILY 06/10/18 [History] BuPROPion XL (24 HR) [Wellbutrin Xl] 150 mg PO DAILY 06/11/18 [History] Gabapentin [Neurontin] 300 mg PO TID 06/11/18 [History] Metformin HCl 500 mg PO BID 06/11/18 [History] Allergies/Adverse Reactions: Allergy/AdvReac Type Severity Reaction Status Date / Time Penicillins [PCN] Allergy Anaphylaxis Verified 11/18/17 11:53 Date of admission: 06/10/18 18:14 Primary care physician: PCP NONE Consults: 06/10/18 18:50 Consult to Nephrology [CONS] Routine Consulting Provider: [facility] [place]/CLIFFORD/CHRISTIANO/RANJANA Reason for Consult: spoke to Dr. Amy Robbins Completed: Yes 06/12/18 10:06 Consult to Physical Therapy [CONS] Stat Comment: Evaluate, develop and implement POC Reason for Consult: EVAL PRIOR TO DISCHARGE TODAY Does patient have active BEDREST order?: No Is patient medically & hemodynamically stable?: Yes Discharging clinician: Feliz Barone - Constitutional Vitals: Temp Pulse Resp BP Pulse Ox 98.0 F 63 18 136/78 96 06/12/18 12:00 06/12/18 11:00 06/12/18 11:00 06/12/18 11:00 06/12/18 11:00 General appearance: Present: cooperative, A&O X 2 Exam: General: In no acute distress. Conversant. Obese. Respiratory exam: CTAB. no accessory muscle use, rales, rhonchi, wheezes Cardiovascular exam: RRR, +S1, +S2. no murmur, gallop, rubs. GI/Abdominal exam: Non-tender, Non-distended, normal bowel sounds, soft, no peritoneal signs. Extremities exam: full ROM, no pedal edema, warm, pulses palpable in b/l lower extremities. no calf tenderness Neurological exam: CN II-XII intact, AO X3, no focal deficits. no pronater drift, facial droop, speech deficit Skin exam: No skin rash, ulcer, purpura or ecchymosis. - Patient Status Disposition: Home, Self-Care Condition: Fair - Discharge Instructions Follow Up With: NONE,PCP [Primary Care Provider] - - Diet and Activity Activity: resume usual activities as tolerated
--- NOTE | 2018-06-12 14:55 | Electrocardiograph Report ---
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
--- NOTE | 2018-06-12 14:55 | Electrocardiograph Report ---
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
== END 2018-06-12 14:06 | disposition home or self-care (01) | DRG 812 ==
LOC: SUATTDRO 18:14 → ICNU 18:14
PROVIDERS: ADMIT Internal Medicine; ATTEND Internal Medicine

== ENCOUNTER 2018-12-16 12:25 | Inpatient (IN) ==
[2018-12-16] MEDS ORDERED: Ondansetron 4 MG/2 ML VIAL IVP ONE (12:44)
[2018-12-16] MEDS ORDERED: *HR* FentaNYL (PF) 100 MCG/2 ML VIAL IVP ONE (12:45)
[2018-12-16] MEDS ORDERED: Td (TENIVAC) Vaccine 0.5 ML VIAL IM ONE (12:45)
--- NOTE | 2018-12-16 12:45 | Emergency Department Note ---
Disposition Clinical Impression: Cellulitis of left leg Disposition: Admitted As Inpatient General Adult HPI - General Chief complaint: ED Extremity Injury, Lower Stated complaint: LLE problem Time Seen by Provider: 12/16/18 12:29 Source: patient, EMS Limitations: no limitations Nursing Notes Reviewed: Yes Vital Signs Reviewed: Yes - History of Present Illness HPI Narrative: ED attending attestation note: I examined this patient and my medical decision-making was reviewed with the emergency medicine resident Noman Reynaga. I agree with the documented findings, disposition and treatment plan as described except to the extent set forth below. Briefly: 53-year-old female presents with one-week history of being stung or bitten but she was out camping last Tuesday. She is diabetic. She noticed pain and swelling redness and warmth worsening over the past several days since Tuesday. Patient was seen at an ER and urgent care and has been on antibiotics. She says that despite that is getting more swollen its weeping she is developing blisters. Patient's left lower extremity the foot is markedly swollen the dorsal surface although this 2+ pulses S and 2 seconds the skin is warm with edema and erythema no signs of tissue necrosis she has several blisters one that had broken which are revealing a villanueva yellow crusting-type fluid on the gauze. Patient's tetanus will be boosted. She will get IV antibiotics to cover pseudomonas and the other organisms normally associated with cellulitis. Patient will get screening labs and a soft tissue x-ray of the left lower extremity. Anticipated disposition is admission for failed outpatient treatment for cellulitis. Pain Scale: 7 - Related Data Home Medications Medication Instructions Recorded Confirmed Albuterol Sulfate [Proair Hfa] 1 puff IH QID PRN 11/12/15 06/10/18 Cetirizine HCl [Zyrtec] 10 mg PO DAILY 10/02/16 06/10/18 Fluticasone/Salmeterol [Advair Hfa 12 gm IH DAILY 10/02/16 06/10/18 115-21 Mcg Inhaler] Ipratropium/Albuterol Neb [Duoneb] 3 ml IH Q6HR PRN 10/02/16 06/10/18 Paroxetine HCl [Paxil] 60 mg PO DAILY 10/02/16 06/10/18 Tiotropium [Spiriva] 18 mcg IH 0700 10/02/16 06/10/18 clonazePAM [Klonopin] 0.5 mg PO BID 10/02/16 06/10/18 Atenolol [Tenormin] 25 mg PO DAILY 06/10/18 06/10/18 Lisinopril [Zestril] 20 mg PO DAILY 06/10/18 06/12/18 BuPROPion XL (24 HR) [Wellbutrin 150 mg PO DAILY 06/11/18 Xl] Gabapentin [Neurontin] 300 mg PO TID 06/11/18 Metformin HCl 500 mg PO BID 06/11/18 Previous Rx's Medication Instructions Recorded Dicyclomine [Bentyl] 20 mg PO QID PRN #20 capsule 11/12/15 Tizanidine HCl 4 mg PO TID #15 tablet 09/22/17 Cyclobenzaprine [Flexeril] 10 mg PO TID #21 tablet 11/08/18 Meloxicam [Mobic] 7.5 mg PO DAILY #21 tablet 11/08/18 Allergies Allergy/AdvReac Type Severity Reaction Status Date / Time Penicillins [PCN] Allergy Anaphylaxis Verified 11/18/17 11:53 Past Medical History - Past Medical History Medical history: Reports: asthma, COPD, diabetes, fibromyalgia, GERD, hypertension Surgical history: Reports: , hysterectomy, other Psychiatric history: Reports: depression 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 history - Social History Smoking Status: Current every day smoker Smokeless Tobacco Status: No Alcohol use: Reports: none Drug use: Reports: none Physical Exam - General Limitations: no limitations General appearance: alert, in no apparent distress Course Vital Signs Temperature 99.5 F 12/16/18 12:28 Pulse Rate 105 12/16/18 12:28 Respiratory Rate 16 12/16/18 12:28 Blood Pressure 147/100 12/16/18 12:28 O2 Sat by Pulse Oximetry 97 12/16/18 12:28 Temperature 99.5 F 12/16/18 12:28 Pulse Rate 105 12/16/18 12:28 Respiratory Rate 16 12/16/18 12:28 Blood Pressure 147/100 12/16/18 12:28 O2 Sat by Pulse Oximetry 97 12/16/18 12:28 Oxygen Delivery Oxygen Delivery Room Air
--- NOTE | 2018-12-16 12:48 | Emergency Department Note ---
Disposition Clinical Impression: Cellulitis of left leg Disposition: Admitted As Inpatient Condition: Fair Instructions: Cellulitis (ED) Forms: ED Satisfaction Letter Time of Disposition: 13:47 Lower Extremity Injury HPI - General Chief Complaint: ED Extremity Injury, Lower Stated Complaint: LLE problem Time Seen by Provider: 12/16/18 12:29 Source: patient, EMS Limitations: no limitations Nursing Notes Reviewed: Yes Vital Signs Reviewed: Yes - History of Present Illness HPI Narrative: 53-year-old female past medical history of diabetes and COPD presenting for a one-week history of left leg cellulitis. Patient states that she was camping one week ago and noticed erythema, warmth, and swelling to the left lower extremity. Patient states that the pain and swelling was gradually progressive and worsening she was seen at this facility on Tuesday had images taken of the extremity with unremarkable workup was discharged home with doxycycline. Sunita nt states that her symptoms continued to progress and she was seen today at an outpatient urgent care which she was given [place] 911 was called and patient was transported to hospital via EMS. Patient admits to nausea and vomiting and chills in addition to the symptoms mentioned above but has no other concerns or complaints at this time. Onset (ago): week(s) Mechanism of Injury: other (Patient states she is unsure if she was bitten or stung) Place: street/outdoors Pain Severity: severe Pain Scale: 10 (Patient states this is the worst pain of her life) Improves with: nothing Associated symptoms: Reports: unable to bear weight Treatments prior to arrival: other ([facility] given at outside facility) - Related Data Home Medications Medication Instructions Recorded Confirmed Cetirizine HCl [Zyrtec] 10 mg PO DAILY 10/02/16 12/16/18 Fluticasone/Salmeterol [Advair Hfa 12 gm IH DAILY 10/02/16 12/16/18 115-21 Mcg Inhaler] Paroxetine HCl [Paxil] 60 mg PO DAILY 10/02/16 12/16/18 Tiotropium [Spiriva] 18 mcg IH 0700 10/02/16 12/16/18 Atenolol [Tenormin] 25 mg PO DAILY 06/10/18 12/16/18 Lisinopril [Zestril] 20 mg PO DAILY 06/10/18 12/16/18 BuPROPion XL (24 HR) [Wellbutrin 150 mg PO DAILY 06/11/18 12/16/18 Xl] Metformin HCl 500 mg PO BID 06/11/18 12/16/18 Albuterol Sulfate [Ventolin Hfa] 2 puff PO Q4-6H PRN 12/16/18 12/16/18 Cholecalciferol (Vitamin D3) 10,000 unit PO DAILY 12/16/18 12/16/18 [Vitamin D3] Dicyclomine [Bentyl] 20 mg PO QID 12/16/18 12/16/18 Gabapentin [Neurontin] 400 mg PO TID 12/16/18 12/16/18 Glimepiride [Amaryl] 4 mg PO DAILY 12/16/18 12/16/18 Ranitidine HCl [Acid Drafting Layout Man] 150 mg PO DAILY 12/16/18 12/16/18 Previous Rx's Medication Instructions Recorded Tizanidine HCl 4 mg PO TID #15 tablet 09/22/17 Allergies Allergy/AdvReac Type Severity Reaction Status Date / Time Penicillins [PCN] Allergy Anaphylaxis Verified 11/18/17 11:53 Review of Systems: Constitutional: Admits: Chills Denies: fever, Cardiovascular: Denies: chest pain Respiratory: Denies: dyspnea Gastrointestinal: Admits to nausea and vomiting and anorexia Denies: abdominal pain,diarrhea, constipation, hematemesis, melena, hematochezia Genitourinary: Denies: hematuria Musculoskeletal: Denies: back pain, neck pain Integumentary: Denies: rash Neurological: Denies: headache, weakness, numbness, paresthesias All systems ED: reviewed and negative except as stated. 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 Absent: scleral icterus, conjunctival injection - Neck Neck exam: Present: normal inspection, trachea midline - Chest Chest inspection: Present: normal inspection, symmetric chest wall rise - Respiratory Respiratory exam: Present: normal lung sounds bilaterally. Absent: respiratory distress, wheezes, stridor, accessory muscle use, prolonged expiratory phase - Cardiovascular Cardiovascular exam: Present: regular rate, normal rhythm, normal heart sounds, +S1, +S2. Absent: systolic murmur, diastolic murmur, rubs, gallop, clicks, JVD, +S3, +S4 - Abdominal Exam Abdominal exam: Present: soft, Non-Tender, normal bowel sounds. Absent: tenderness, distention, guarding, rebound, rigidity, organomegaly - Expanded Lower Extremity Exam Hip/Pelvis exam: Present: other (Significant swelling and 3+ pitting edema with erythema and tightness of the skin in the left lower extremity. Dorsalis pedis pulse is intact and strong. The extremity is exquisitely tender to palpation. Marking of current erythema was performed with sterile pen.) - Neurological Exam Neurological exam: Present: alert, oriented X3 - Psychiatric Psychiatric exam: Present: normal affect, normal mood - Skin Skin exam: Present: warm, dry, intact, erythema, pallor, mottled. Absent: rash, cyanosis, diaphoresis Course Course Narrative: Blood and wound culture X-ray of the left lower extremity Vancomycin in ED IV fluids, Zofran and fentanyl. Vital Signs Temperature 99.5 F 12/16/18 12:28 Pulse Rate 105 12/16/18 12:28 Respiratory Rate 16 12/16/18 12:28 Blood Pressure 147/100 12/16/18 12:28 O2 Sat by Pulse Oximetry 97 12/16/18 12:28 Temperature 99.5 F 12/16/18 12:28 Pulse Rate 88 12/16/18 13:01 Respiratory Rate 14 12/16/18 13:01 Blood Pressure 141/88 12/16/18 13:01 O2 Sat by Pulse Oximetry 96 12/16/18 13:01 Oxygen Delivery Oxygen Delivery Room Air Extremity Injury, Lower - MDM Narrative Medical decision making narrative: Imaging results showed no concern for exposing fasciitis or osteomyelitis Laboratory results without acute pathology Patient was admitted to hospitalist medicine service for further evaluation and management of cellulitis with failed outpatient therapy. - Lab Data Lab results reviewed: Yes I reviewed the patient's lab results. Result diagrams: 12/16/18 13:00 Lab Results 12/16/18 Range/Units 13:00 WBC 16.0 H (4.3-11.1) K/mcL RBC 4.98 H (3.82-4.97) M/mcL Hgb 13.4 (11.5-15.4) g/dL Hct 42.5 (35.3-44.9) % MCV 85.3 (83.0-100.0) fL MCH 26.9 L (28.0-33.3) pg MCHC 31.5 L (31.6-35.5) g/dL RDW 13.0 (11.5-14.5) % Plt Count 224 (140-400) K/mcL MPV 10.8 (9.4-12.4) fL Immature Gran % 1.0 (0-4) % Seg Neutrophils % 79.5 % Lymphocytes % 10.1 % Monocytes % 8.0 % Eosinophils % 0.8 % Basophils % 0.6 % Neutrophils # 12.7 H (1.6-8.9) K/mcL Lymphocytes # 1.6 (0.6-4.6) K/mcL Monocytes # 1.3 (0.0-1.3) K/mcL Eosinophils # 0.1 (0.0-0.6) K/mcL Basophils # 0.1 (0.0-0.2) K/mcL - Radiology Data Radiology results reviewed: Yes I reviewed the patient's radiology results. Foot X-Ray 12/16/18 12:44 IMPRESSION: 1. Diffuse soft tissue swelling is most prominent in the dorsal left forefoot and may represent cellulitis given the provided clinical history. Edema could appear similar. 2. No findings of necrotizing fasciitis or osteomyelitis. 3. Bony demineralization. 4. Questionable mild osteoarthritic changes of the left tibiotalar joint. D/ / Vinh Lewis MD / Vinh Lewis MD Interpreting Provider: Vinh Lewis MD
[2018-12-16] MEDS ORDERED: Tdap (Boostrix) Vaccine 0.5 ML SYRINGE IM ONE (13:30)
[2018-12-16 13:36] LABS: Basophils # 0.1 K/mcL (0.0-0.2); Basophils % 0.6 %; Eosinophils # 0.1 K/mcL (0.0-0.6); Eosinophils % 0.8 %; Hematocrit 42.5 % (35.3-44.9); Hemoglobin 13.4 g/dL (11.5-15.4); Lymphocytes # 1.6 K/mcL (0.6-4.6); Lymphocytes % 10.1 %; Mean Corpuscular HGB Conc 31.5 g/dL (31.6-35.5); Mean Corpuscular Hemoglobin 26.9 pg (28.0-33.3); Mean Corpuscular Volume 85.3 fL (83.0-100.0); Mean Platelet Volume 10.8 fL (9.4-12.4); Monocytes # 1.3 K/mcL (0.0-1.3); Neutrophils # 12.7 K/mcL (1.6-8.9); Platelet Count 224 K/mcL (140-400); Red Blood Count 4.98 M/mcL (3.82-4.97); Segmented Neutrophils % 79.5 %
[2018-12-16 13:57] LABS: BUN/Creatinine Ratio 17 (6-26); Blood Urea Nitrogen 11 mg/dL (6-20); Calcium 9.4 mg/dL (8.6-10.3); Carbon Dioxide 21 mEq/L (23-29); Chloride 98 mEq/L (98-107); Glucose 398 mg/dL (70-105); Osmolality,Calculated 284 (280-300); Potassium 4.3 mEq/L (3.5-5.1); Sodium 129 mEq/L (136-145); eGFR For African Americans > 60 (> 60); eGFR For Non-African Americans > 60 (> 60)
[2018-12-16] MEDS ORDERED: Naloxone 0.4 MG/ML INJ IVP PRN (14:16)
[2018-12-16] MEDS ORDERED: *HR* Dextrose 50 % in Water (Syg) 50 ML SYRINGE IVP PRN (14:21)
[2018-12-16] MEDS ORDERED: Dextrose Gel 15 GM/37.5 ML TUBE PO PRN ×2 (14:21)
[2018-12-16] MEDS ORDERED: D5% in Water 1,000 ML IVC PRN (14:21)
[2018-12-16] MEDS ORDERED: Ipratropium/Albuterol Neb 3 ML IH PRN (14:23)
--- NOTE | 2018-12-16 15:17 | AcuteCare Surgery Consult Note ---
Date of Encounter: 12/16/18 Time of Encounter: 15:46 Assessment and Plan (1) Cellulitis of left leg Current Visit: Yes Status: Acute Sepsis likely secondary to cellulitis of the left lower extremity. Patient states that she was camping and believes that she was "probably stung by something". Failed outpatient therapy with doxycycline. Erythema and edema progressively worsened and patient developed blisters with serous drainage. On physical exam area is exquisitely tender with marked erythema and edema. Unable to express any purulent material. X-ray of the left foot was significant for cellulitis, but no evidence for osteomyelitis or underlying abscess. Recommend further investigation with CT of the left lower extremity versus ultrasound to assess for an underlying abscess or fluid collection. Recommend antibiotics per primary team and following up on blood cultures. We will follow the patient. History of Present Illness Consult date: 12/16/18 History of present illness: Patient is a 53-year-old female with a history of [id number] diabetes who is admitted to the hospital for sepsis secondary to cellulitis of the left lower extremity with failed outpatient treatment. Patient reports that 6 days ago she had pain and swelling of the left foot which gradually progressively worsened. She visited with an urgent care center as an outpatient and was presc ribed doxycycline however the redness and swelling continued to worsen. Patient states that 4 days ago she started noticing blistering and clear fluid drainage from the area. She states that it is exquisitely tender to touch and she has pain with placing weight on the foot. She denies any fevers, but does report chills and night sweats. She has also had nausea and small volume emesis of recently digested food over the past few days. In the emergency department patient was tachycardic at 105 but afebrile with a temperature of 99.5. Her labs were significant for white blood cell count of 16.0 with a neutrophilic predominance. An x-ray of the left lower extremity was obtained which revealed soft tissue swelling likely represent cellulitis, but no necrotizing fasciitis or osteomyelitis. Past Med Surg Social Fam HX - Past Medical History Medical history: asthma, COPD, diabetes, fibromyalgia, GERD, hypertension Additional medical history: precancerous polyps Psychiatric history: depression - Past Surgical History Surgical History: , hysterectomy, other Additional surgical history: carpal tunnes,. rhinoplasty. colonoscopy - Social History Smoking Status: Current every day smoker Smokeless Tobacco Status: No Alcohol use: none Drug use: none - Family History Mother Hx Family Respiratory Disorders: No Hx Family Endocrine Disorder: No Father Hx Family Respiratory Disorders: Yes Medications and Allergies Cetirizine HCl [Zyrtec] 10 mg PO DAILY 10/02/16 [History] Fluticasone/Salmeterol [Advair Hfa 115-21 Mcg Inhaler] 12 gm IH DAILY 10/02/16 [History] Paroxetine HCl [Paxil] 60 mg PO DAILY 10/02/16 [History] Tiotropium [Spiriva] 18 mcg IH 0700 10/02/16 [History] Tizanidine HCl 4 mg PO TID #15 tablet 09/22/17 [Rx] Atenolol [Tenormin] 25 mg PO DAILY 06/10/18 [History] Lisinopril [Zestril] 20 mg PO DAILY 06/10/18 [History] BuPROPion XL (24 HR) [Wellbutrin Xl] 150 mg PO DAILY 06/11/18 [History] Metformin HCl 500 mg PO BID 06/11/18 [History] Albuterol Sulfate [Ventolin Hfa] 2 puff PO Q4-6H PRN 12/16/18 [History] Cholecalciferol (Vitamin D3) [Vitamin D3] 10,000 unit PO DAILY 12/16/18 [History] Dicyclomine [Bentyl] 20 mg PO QID 12/16/18 [History] Gabapentin [Neurontin] 400 mg PO TID 12/16/18 [History] Glimepiride [Amaryl] 4 mg PO DAILY 12/16/18 [History] Ranitidine HCl [Acid Bag Mender] 150 mg PO DAILY 12/16/18 [History] Allergy/AdvReac Type Severity Reaction Status Date / Time Penicillins [PCN] Allergy Anaphylaxis Verified 11/18/17 11:53 Review of Systems All systems PM: The remainder of the systems were reviewed and are negative - Constitutional chills, night sweats, no fever(s) - Cardiovascular no chest pain - Respiratory no dyspnea - Gastrointestinal nausea, vomiting, no abdominal pain, no constipation, no diarrhea, no hematochezia, no melena - Genitourinary Genitourinary: no dysuria - Musculoskeletal no arthralgias - Integumentary new lesions, swelling - Neurological no dizziness - Hematologic/Lymphatic no easy bleeding General Surgery Exam Initial Vital Signs Temp Pulse Resp BP Pulse Ox 99.5 F 105 16 147/100 97 12/16/18 12:28 12/16/18 12:28 12/16/18 12:28 12/16/18 12:28 12/16/18 12:28 - General physical appearance well developed, well nourished, no distress - Eyes PERRL, normal ocular movement - ENT normal pinna, normal nares - Neck trachea midline, no venous distension - Respiratory normal expansion, normal respiratory effort, clear to auscultation - Cardiovascular Cardiovascular exam: Present: RRR. Absent: murmurs - Abdomen Abdomen general surgery: Present: bowel sounds present, soft, non tender - Integumentary Integumentary general surgery: Present: other (Erythema and edema of the left lower extremity especially at the dorsum of the left foot. There are two 2cm in size history of lesions straining serous fluid. The area is exquisitely tender to palpation. Unable to express purulent material.) - Neurologic Present: CN 2-12 grossly intact - Musculoskeletal Present: normal posture - Psychiatric Psychiatric general surgery: Present: A&Ox3, appropriate Exam Initial Vital Signs Temp Pulse Resp BP Pulse Ox 99.5 F 105 16 147/100 97 12/16/18 12:28 12/16/18 12:28 12/16/18 12:28 12/16/18 12:28 12/16/18 12:28 Results - Labs 12/16/18 13:00 12/16/18 13:00 Abnormal lab results WBC 16.0 K/mcL (4.3-11.1) H 12/16/18 13:00 RBC 4.98 M/mcL (3.82-4.97) H 12/16/18 13:00 MCH 26.9 pg (28.0-33.3) L 12/16/18 13:00 MCHC 31.5 g/dL (31.6-35.5) L 12/16/18 13:00 12.7 K/mcL (1.6-8.9) H 12/16/18 13:00 Sodium 129 mEq/L (136-145) L 12/16/18 13:00 Carbon Dioxide 21 mEq/L (23-29) L 12/16/18 13:00 Glucose 398 mg/dL (70-105) H 12/16/18 13:00 Diabetes panel 12/16/18 Range/Units 13:00 Sodium 129 L (136-145) mEq/L Potassium 4.3 (3.5-5.1) mEq/L Chloride 98 (98-107) mEq/L Carbon Dioxide 21 L (23-29) mEq/L BUN 11 (6-20) mg/dL Creatinine 0.64 (0.60-1.20) mg/dL Glucose 398 H (70-105) mg/dL Calcium 9.4 (8.6-10.3) mg/dL Calcium panel 12/16/18 Range/Units 13:00 Calcium 9.4 (8.6-10.3) mg/dL Pituitary panel 12/16/18 Range/Units 13:00 Sodium 129 L (136-145) mEq/L Potassium 4.3 (3.5-5.1) mEq/L Chloride 98 (98-107) mEq/L Carbon Dioxide 21 L (23-29) mEq/L BUN 11 (6-20) mg/dL Creatinine 0.64 (0.60-1.20) mg/dL Glucose 398 H (70-105) mg/dL Calcium 9.4 (8.6-10.3) mg/dL Adrenal panel 12/16/18 Range/Units 13:00 Sodium 129 L (136-145) mEq/L Potassium 4.3 (3.5-5.1) mEq/L Chloride 98 (98-107) mEq/L Carbon Dioxide 21 L (23-29) mEq/L BUN 11 (6-20) mg/dL Creatinine 0.64 (0.60-1.20) mg/dL Glucose 398 H (70-105) mg/dL Calcium 9.4 (8.6-10.3) mg/dL All other labs normal. Consult Discharge Plan - Plan Referrals: Jaz Pascual, KELLY [Primary Care Provider] -
--- NOTE | 2018-12-16 15:32 | Internal Med History&Physical ---
Date of Encounter: 12/16/18 Time of Encounter: 15:00 Internal Medicine - H&P: HPI Chief complaint: Left leg cellulitis History of present illness: Ms. Bills is a 53 year old female with pmh of COPD, diabetes presenting with complaints of leg redness and swelling since tuesday. Patient says [place] at [facility] and came home tuesday. She began to experience swelling of the left lower extremity and redness afterwards on Tuesday. The redness progressively got worse and she went to urgent care on tuesday where she was prescribed some doxycycline. She has been taking the doxycycline , but the redness hasn't improved and sh noticed some bullae forming on her left leg yesteday and decoded to come to the ER today. She admits to fevers, chills and nausea and vomiting. She denies any other acute symptoms. In the ER, she was started on vancomycin and she is being admitted for further management. Past Med Surg Social Fam HX - Past Medical History Medical history: asthma, COPD, diabetes, fibromyalgia, GERD, hypertension Additional medical history: precancerous polyps Psychiatric history: depression - Past Surgical History Surgical History: , hysterectomy, other Additional surgical history: carpal tunnes,. rhinoplasty. colonoscopy - Social History Smoking Status: Current every day smoker Smokeless Tobacco Status: No Alcohol use: none Drug use: none - Family History Mother Hx Family Respiratory Disorders: No Hx Family Endocrine Disorder: No Father Hx Family Respiratory Disorders: Yes Internal Medicine - H&P: Meds Cetirizine HCl [Zyrtec] 10 mg PO DAILY 10/02/16 [History] Fluticasone/Salmeterol [Advair Hfa 115-21 Mcg Inhaler] 12 gm IH DAILY 10/02/16 [History] Paroxetine HCl [Paxil] 60 mg PO DAILY 10/02/16 [History] Tiotropium [Spiriva] 18 mcg IH 0700 10/02/16 [History] Tizanidine HCl 4 mg PO TID #15 tablet 09/22/17 [Rx] Atenolol [Tenormin] 25 mg PO DAILY 06/10/18 [History] Lisinopril [Zestril] 20 mg PO DAILY 06/10/18 [History] BuPROPion XL (24 HR) [Wellbutrin Xl] 150 mg PO DAILY 06/11/18 [History] Metformin HCl 500 mg PO BID 06/11/18 [History] Albuterol Sulfate [Ventolin Hfa] 2 puff PO Q4-6H PRN 12/16/18 [History] Cholecalciferol (Vitamin D3) [Vitamin D3] 10,000 unit PO DAILY 12/16/18 [History] Dicyclomine [Bentyl] 20 mg PO QID 12/16/18 [History] Gabapentin [Neurontin] 400 mg PO TID 12/16/18 [History] Glimepiride [Amaryl] 4 mg PO DAILY 12/16/18 [History] Ranitidine HCl [Acid Coke Worker] 150 mg PO DAILY 12/16/18 [History] Allergy/AdvReac Type Severity Reaction Status Date / Time Penicillins [PCN] Allergy Anaphylaxis Verified 11/18/17 11:53 All Systems PM: A 10-system review of systems was performed and is negative for pertinent findings except as documented above in the HPI. - Constitutional Constitutional: fatigue, fever(s) - EENT Eyes: no change in vision, no discharge, no pain, no photophobia Ears: no ear discharge, no ear pain, no tinnitus Nose, mouth and throat: no dysphagia, no nasal discharge, no neck pain, no sore throat - Cardiovascular Cardiovascular ROS IM: no chest pain, no diaphoresis, no dyspnea, no lightheadedness, no palpitations, no syncope - Respiratory Respiratory: no cough, no dyspnea, no wheezing, no excessive phlegm production - Gastrointestinal Gastrointestinal: no abdominal pain, no diarrhea, no hematemesis, no hematochezia, no melena, no nausea, no vomiting - Genitourinary Genitourinary: no change in urinary stream, no dysuria, no flank pain, no hematuria - Musculoskeletal Musculoskeletal ROS IM: no numbness, no tingling - Integumentary Integumentary IM: new lesions, skin ulcer, no rash, no unusual bruising - Neurological Neurological ROS: no confusion, no convulsions, no focal weakness, no numbness, no tingling, no tremor(s) - Hematologic/Lymphatic Hematologic/Lymphatic: no easy bruising - Constitutional Vitals: Temp Pulse Resp BP Pulse Ox 99.5 F 88 14 141/88 96 12/16/18 12:28 05/11/19 13:01 12/16/18 13:01 12/16/18 13:01 12/16/18 13:01 Exam: NAD - Head Head exam: Present: atraumatic, normocephalic - Eye Eye exam: Present: PERRL, conjuntiva pink, sclera anicteric Pupils: Present: PERRL - Neck Neck exam general surgery: Present: supple, trachea midline. Absent: lymphadenopathy - Respiratory Respiratory exam: Present: CTAB. Absent: accessory muscle use, rales, rhonchi, wheezes - Cardiovascular Cardiovascular exam: Present: RRR, +S1, +S2. Absent: diastolic murmur, gallop, rubs, systolic murmur - GI/Abdominal GI/Abdominal exam: Present: normal bowel sounds, soft, no peritoneal signs. Absent: distended, tenderness - Extremities Exam Extremities exam: Present: warm, radial pulses palpable and symmetrical. Absent: calf tenderness, cyanotic, pedal edema Additional comments: Left leg swelling and redness with bullae formation - Neurological Exam Neurological exam: Present: CN II-XII intact, oriented X3, no focal deficits. Absent: pronater drift, facial droop, speech deficit - Skin Skin exam: Present: dry, intact Internal Med - H&P Results - Labs CBC & Chem 7: 12/16/18 13:00 12/16/18 13:00 Labs: Short CBC 12/16/18 Range/Units 13:00 WBC 16.0 H (4.3-11.1) K/mcL Hgb 13.4 (11.5-15.4) g/dL Hct 42.5 (35.3-44.9) % Plt Count 224 (140-400) K/mcL Neutrophils # 12.7 H (1.6-8.9) K/mcL BMP 12/16/18 13:00 Sodium 129 L Potassium 4.3 Chloride 98 Carbon Dioxide 21 L BUN 11 Creatinine 0.64 Glucose 398 H Calcium 9.4 - Impressions ITS Impressions Foot X-Ray 12/16/18 12:44 IMPRESSION: 1. Diffuse soft tissue swelling is most prominent in the dorsal left forefoot and may represent cellulitis given the provided clinical history. Edema could appear similar. 2. No findings of necrotizing fasciitis or osteomyelitis. 3. Bony demineralization. 4. Questionable mild osteoarthritic changes of the left tibiotalar joint. D/ / Vinh Lewis MD / Vinh Lewis MD Interpreting Provider: Vinh Lewis MD - Assessment and Plan (1) Sepsis Current Visit: Yes Status: Acute Assessment and plan: Sepsis 2/2 to cellulitis. Pt has tachycardia, leukocytosis and a wBC of 16 with redness, erythema and weeping bullae in left lower extremity Obtain blood cultures. Start on vanc, cefepime and metronidazole Surgery consulted and appreciate recs. Foot xray shows no evidence of necrotizing fascitis Qualifiers: Qualified Code(s): A41.9 - Sepsis, unspecified organism (2) Cellulitis of left leg Current Visit: Yes Status: Acute Assessment and plan: See #1. Continue vancomycin, cefepime and metronidazole Blood cultures (3) COPD (chronic obstructive pulmonary disease) Current Visit: Yes Status: Acute Assessment and plan: No acute exacerbation. Nebs PRN Qualifiers: Qualified Code(s): J44.9 - Chronic obstructive pulmonary disease, unspecified (4) Diabetes Current Visit: Yes Status: Acute Assessment and plan: Continue insulin and monitor fingersticks Qualifiers: Qualified Code(s): E11.9 - Type 2 diabetes mellitus without complications (5) Hyponatremia Current Visit: Yes Status: Acute Assessment and plan: Likley hypovolemic hyponatremia with elevated glucose. Control sugars. Will start on IV fluids with normal saline (6) DVT prophylaxis Current Visit: Yes Status: Acute Assessment and plan: heparin sc - Time Spent With Patient Total time spent is greater than 50% in coordination of care (as documented) at patient's floor/unit and/or counseling patient:
[2018-12-16 16:39] LABS: Creatine Kinase 14 Units/L (30-223)
[2018-12-16] MEDS: MetroNIDAZOLE 500 MG/100 ML 500 MG/100 ML BAG IVPB SCH (16:46)
[2018-12-16] MEDS: tiZANidine 4 MG TABLET PO SCH ×2 (16:46→20:28)
[2018-12-16] MEDS: 0.9 % Sodium Chloride 1,000 ML IVC SCH (16:46)
[2018-12-16] MEDS: Gabapentin 400 MG CAPSULE PO SCH ×2 (16:46→20:28)
[2018-12-16] MEDS: *HR* OxyCODONE/APAP 5/325 TABLET PO PRN (16:46)
[2018-12-16] MEDS: Cefepime HCl 1,000 MG in Water for inj. (sterile) 10 ML IVP SCH (16:46)
[2018-12-16] MEDS: Insulin LISPRO 300 UNITS/3 ML VIAL SQ SCH (16:47)
[2018-12-16] MEDS ORDERED: Isovue-370 500 ML BOTTLE IVP ONE (18:19)
[2018-12-16] MEDS: Acetaminophen 325 MG TABLET PO PRN (20:28)
[2018-12-16] MEDS: Insulin DETEMIR 100 UNIT/ML X5UNITS SQ SCH (21:00)
[2018-12-17] MEDS: Cefepime HCl 1,000 MG in Water for inj. (sterile) 10 ML IVP SCH ×2 (00:01→06:14)
[2018-12-17] MEDS ORDERED: *HR* Promethazine 25 MG/ML VIAL IVP PRN (01:22)
[2018-12-17] MEDS: Acetaminophen 325 MG TABLET PO PRN (03:51)
[2018-12-17 04:26] LABS: Basophils # 0.1 K/mcL (0.0-0.2); Basophils % 0.5 %; Eosinophils # 0.2 K/mcL (0.0-0.6); Eosinophils % 1.4 %; Hematocrit 37.9 % (35.3-44.9); Hemoglobin 12.4 g/dL (11.5-15.4); Immature Granulocytes % 1.3 % (0-4); Lymphocytes # 2.6 K/mcL (0.6-4.6); Lymphocytes % 16.2 %; Mean Corpuscular HGB Conc 32.7 g/dL (31.6-35.5); Mean Corpuscular Hemoglobin 26.6 pg (28.0-33.3); Mean Corpuscular Volume 81.2 fL (83.0-100.0); Mean Platelet Volume 9.1 fL (9.4-12.4); Monocytes # 1.6 K/mcL (0.0-1.3); Monocytes % 9.9 %; Neutrophils # 11.3 K/mcL (1.6-8.9); Platelet Count 309 K/mcL (140-400); Red Blood Count 4.67 M/mcL (3.82-4.97); Red Cell Distribution Width 13.1 % (11.5-14.5); Segmented Neutrophils % 70.7 %
[2018-12-17] MEDS: *HR* HYDROcodone/Acet 5/325 mg TABLET PO PRN ×4 (04:32→23:47)
[2018-12-17] MEDS: 0.9 % Sodium Chloride 1,000 ML IVC SCH ×2 (04:33→17:46)
[2018-12-17 04:45] LABS: BUN/Creatinine Ratio 17 (6-26); Blood Urea Nitrogen 13 mg/dL (6-20); Carbon Dioxide 25 mEq/L (23-29); Chloride 100 mEq/L (98-107); Glucose 251 mg/dL (70-105); Magnesium 1.4 mg/dL (1.6-2.6); Osmolality,Calculated 281 (280-300); Potassium 4.1 mEq/L (3.5-5.1); Sodium 131 mEq/L (136-145); eGFR For African Americans > 60 (> 60); eGFR For Non-African Americans > 60 (> 60)
[2018-12-17] MEDS: *HR* OxyCODONE/APAP 5/325 TABLET PO PRN ×4 (06:38→19:19)
[2018-12-17] MEDS: Budesonide/Formoterol 160/4.5 1 PUFF INH IH SCH ×2 (07:35→19:46)
[2018-12-17] MEDS: MetroNIDAZOLE 500 MG/100 ML 500 MG/100 ML BAG IVPB SCH ×4 (08:05→23:37)
[2018-12-17] MEDS: tiZANidine 4 MG TABLET PO SCH ×3 (08:06→20:05)
[2018-12-17] MEDS: Famotidine 20 MG TABLET PO SCH (08:06)
[2018-12-17] MEDS: Gabapentin 400 MG CAPSULE PO SCH ×3 (08:06→20:05)
[2018-12-17] MEDS: Cholecalciferol (D-3) 1,000 UNIT (25MCG) TABLET PO SCH (08:06)
[2018-12-17] MEDS: BuPROPion XL (24 HR) 150 MG TABLET PO SCH (08:06)
[2018-12-17] MEDS: Lisinopril 20 MG TABLET PO SCH (08:06)
[2018-12-17] MEDS: Insulin LISPRO 300 UNITS/3 ML VIAL SQ SCH ×4 (08:07→21:08)
[2018-12-17 13:35] LABS: Estimated Average Glucose 312 mg/dl
--- NOTE | 2018-12-17 14:51 | Internal Med Progress Note ---
Hospitalist Progress Note - Encounter Date of Encounter: 12/17/18 Time of Encounter: 09:00 - Subjective Interval History: Patient still has left ankle skin redness and pain. No significant improvement at this point. Still has low fever. Other vitals are stable. - Exam Vitals: Temp Pulse Resp BP Pulse Ox 100.2 F H 80 16 114/69 93 12/17/18 13:17 12/17/18 13:17 12/17/18 13:17 12/17/18 13:17 12/17/18 13:17 Exam: Pt is AAO x 3, in NAD HEENT: NC/AT, PERRL Neck: Supple, no JVD, no LAD Lungs: CTA b/l Heart: S1S2, RRR Abd: Soft, nontender, BS present Ext: ROM wnl, no pedal edema, left ankle skin redness and warmth, with blister on the surface. Neuro: No focal deficit - Assessment and Plan (1) DVT prophylaxis Current Visit: Yes Status: Acute Assessment and Plan: heparin sc (2) Cellulitis of left leg Current Visit: Yes Status: Acute Assessment and Plan: Patient has skin redness and warmth and tenderness. CT shows no abscess/gas. - Cover patient with Vanco, meropenem, and Flagyl at this point. - Continue IV fluid - Consult podiatry. Consider consult ID if symptoms remains no improvement. (3) Sepsis Current Visit: Yes Status: Acute Assessment and Plan: Sepsis 2/2 to cellulitis with fever and leukocytosis. - Obtain blood cultures. Start on vanc, meropenem and metronidazole - Continue IV fluid - Check lactate level (4) COPD (chronic obstructive pulmonary disease) Current Visit: Yes Status: Acute Assessment and Plan: No acute exacerbation. Nebs PRN (5) Diabetes Current Visit: Yes Status: Acute Assessment and Plan: Continue basal and sliding scale insulin and monitor fingersticks (6) Hyponatremia Current Visit: Yes Status: Acute Assessment and Plan: [place] hypovolemic hyponatremia with elevated glucose. Control sugars. Will start on IV fluids with normal saline - Time Spent with Patient Total time spent is greater than 50% in coordination of care (as documented) at patient's floor/unit and/or counseling patient: 40 minutes Greater than 35 minutes Plan of Care Discussed with: patient Internal Medicine: Result - Labs CBC & Chem 7: 12/17/18 04:14 05/12/19 04:14 Labs: Short CBC 12/17/18 Range/Units 04:14 WBC 16.0 H (4.3-11.1) K/mcL Hgb 12.4 (11.5-15.4) g/dL Hct 37.9 (35.3-44.9) % Plt Count 309 (140-400) K/mcL Neutrophils # 11.3 H (1.6-8.9) K/mcL BMP 12/16/18 12/17/18 13:00 04:14 Sodium 129 L 131 L Potassium 4.3 4.1 Chloride 98 100 Carbon Dioxide 21 L 25 BUN 11 13 Creatinine 0.64 0.77 Glucose 398 H 251 H Calcium 9.4 9.0 - Impressions Impressions Lower Extremity CT 12/16/18 16:13 IMPRESSION: 1. Diffuse subcutaneous edema involving the imaged lower leg and foot. No subcutaneous gas or organized drainable fluid collection identified. Correlate clinically to exclude cellulitis. 2. No acute osseous abnormality evident. No CT evidence for osteomyelitis. 3. 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
[2018-12-17] MEDS: Meropenem 1,000 MG in Water for inj. (sterile) 10 ML IVP SCH ×2 (15:40→23:36)
[2018-12-17] MEDS: *HR* Heparin 5,000 UNIT/ML VIAL SQ SCH (17:37)
[2018-12-17] MEDS: Insulin DETEMIR 100 UNIT/ML X5UNITS SQ SCH (21:07)
[2018-12-18 01:10] LABS: Basophils % 0.2 %; Eosinophils # 0.4 K/mcL (0.0-0.6); Eosinophils % 2.2 %; Hematocrit 33.8 % (35.3-44.9); Immature Granulocytes % 1.4 % (0-4); Lymphocytes # 2.7 K/mcL (0.6-4.6); Lymphocytes % 17.1 %; Mean Corpuscular HGB Conc 31.7 g/dL (31.6-35.5); Mean Corpuscular Hemoglobin 26.1 pg (28.0-33.3); Mean Corpuscular Volume 82.4 fL (83.0-100.0); Mean Platelet Volume 9.4 fL (9.4-12.4); Monocytes # 1.2 K/mcL (0.0-1.3); Monocytes % 7.8 %; Neutrophils # 11.4 K/mcL (1.6-8.9); Platelet Count 305 K/mcL (140-400); Segmented Neutrophils % 71.3 %
[2018-12-18 01:13] LABS: Hemoglobin 10.7 g/dL (11.5-15.4)
[2018-12-18 01:27] LABS: Vancomycin,Trough 12 mcg/mL (5-10)
[2018-12-18 01:30] LABS: BUN/Creatinine Ratio 19 (6-26); Blood Urea Nitrogen 21 mg/dL (6-20); Calcium 8.3 mg/dL (8.6-10.3); Carbon Dioxide 24 mEq/L (23-29); Chloride 101 mEq/L (98-107); Glucose 303 mg/dL (70-105); Osmolality,Calculated 288 (280-300); Potassium 4.5 mEq/L (3.5-5.1); Sodium 132 mEq/L (136-145); eGFR For African Americans > 60 (> 60); eGFR For Non-African Americans 52 (> 60)
[2018-12-18] MEDS: *HR* OxyCODONE/APAP 5/325 TABLET PO PRN ×3 (02:19→17:02)
[2018-12-18] MEDS: *HR* Heparin 5,000 UNIT/ML VIAL SQ SCH ×2 (04:59→17:25)
[2018-12-18] MEDS: *HR* HYDROcodone/Acet 5/325 mg TABLET PO PRN ×2 (06:44→12:10)
[2018-12-18] MEDS: Budesonide/Formoterol 160/4.5 1 PUFF INH IH SCH ×2 (07:22→20:35)
[2018-12-18] MEDS: 0.9 % Sodium Chloride 1,000 ML IVC SCH ×2 (08:10→10:12)
[2018-12-18] MEDS: Gabapentin 400 MG CAPSULE PO SCH ×3 (09:05→20:50)
[2018-12-18] MEDS: Lisinopril 20 MG TABLET PO SCH (09:05)
[2018-12-18] MEDS: BuPROPion XL (24 HR) 150 MG TABLET PO SCH (09:05)
[2018-12-18] MEDS: Famotidine 20 MG TABLET PO SCH (09:05)
[2018-12-18] MEDS: Cholecalciferol (D-3) 1,000 UNIT (25MCG) TABLET PO SCH (09:05)
[2018-12-18] MEDS: tiZANidine 4 MG TABLET PO SCH ×3 (09:05→20:50)
[2018-12-18] MEDS: Insulin LISPRO 300 UNITS/3 ML VIAL SQ SCH ×4 (09:09→20:51)
[2018-12-18] MEDS: MetroNIDAZOLE 500 MG/100 ML 500 MG/100 ML BAG IVPB SCH ×2 (10:14→17:03)
[2018-12-18] MEDS: Meropenem 1,000 MG in Water for inj. (sterile) 10 ML IVP SCH (10:14)
--- NOTE | 2018-12-18 11:46 | Podiatry Consult Note ---
Date of Encounter: 12/18/18 Time of Encounter: 11:30 Assessment and Plan (1) Abscess Current visit: Yes Status: Acute Assessment: Abscess of LLE, thick yellow/brown purulent drainage Plan: WBC 16.0, no fevers noted, at this time does not appear to be septic, awaiting blood cultures CT showed 10 x 10 x 9 mm abscess of left malleolus NPO after MN Plan for surgery tomorrow, will be add on case Wound cultures returned Gram - rods and Group B strep, currently on IV ATB, cefepime, flagyl, and vanc, ID consulted (2) Cellulitis of left leg Current visit: Yes Status: Acute Assessment: Cellulitis LLE/foot Plan: Currently on IV ATB, cefepime, flagyl, and vanc ID consulted- appreciate recommendations (3) Diabetes Current visit: Yes Status: Chronic Assessment: Diabetes Mellitus II Plan: HGB A1C 12.5, recommend tight glycemic control, primary managing Qualifiers: Diabetes mellitus type: type 2 Diabetes mellitus terminal worker insulin use: without correction use Diabetes mellitus complication status: without complication Qualified Code(s): E11.9 - Type 2 diabetes mellitus without complications History of Present Illness HPI: Ms. Bills is a 53 year old female who presented to the ER last evening with complaints of worsening left lower extremity erythema and edema. Patient reports PMH of asthma, COPD, DM II, fibromyalgia, GERD, HTN, and depression. Patient denies any etoh abuse or illicit drug use. Reports smoking 1ppd. Briefly, patient stated 1 week ago Tuesday she went camping with her family. States she was hiking in the green. Unsure if a stick or something stung her. Reports her son is an IV drug user and is concerned that when they were camping she may have inadvertently been stuck by a dirty needle. States that when she returned home on Tuesday she began to notice redness in her leg. States on Tuesday she was seen at the [place] urgent [facility] and at that time was prescribed doxycycline and a steroid pack. Reports on after taking medication she noticed that she had a blister forming on her leg. States on Tuesday her left ankle/leg had worsening edema and erythema as well as 3 more blisters. States that on Tuesday she started having purulent drainage from leg and pain was excruciating rating 10/10 and decided to come to the ER. Again, Ms. Bills is a 53 year old female presenting with cellulitis and suspected abscess. During ER evaluation xray and left lower extremity CT were completed which showed cellulitis with no sign of gas or abscess. Subsequently upon admission ankle CT was performed showing a 10 x 10 x 9 cm abscess. WBC 16.0, HGB A1C 12.5. Erythema marked and does not extend beyond demarcation line at this time. Discussed with patient probable need for surgical intervention and patient agreeable. Will discuss with Dr. Jin. Past Med Surg Social Fam HX - Past Medical History Medical history: asthma, COPD, diabetes, fibromyalgia, GERD, hypertension Additional medical history: precancerous polyps Psychiatric history: depression - Past Surgical History Surgical History: , hysterectomy, other Additional surgical history: carpal tunnes,. rhinoplasty. colonoscopy - Social History Smoking Status: Current every day smoker Smokeless Tobacco Status: No Alcohol use: none Drug use: none - Family History Mother Hx Family Respiratory Disorders: No Hx Family Endocrine Disorder: No Father Hx Family Respiratory Disorders: Yes Medications and Allergies Cetirizine HCl [Zyrtec] 10 mg PO DAILY 10/02/16 [History] Fluticasone/Salmeterol [Advair Hfa 115-21 Mcg Inhaler] 12 gm IH DAILY 10/02/16 [History] Paroxetine HCl [Paxil] 60 mg PO DAILY 10/02/16 [History] Tiotropium [Spiriva] 18 mcg IH 0700 10/02/16 [History] Tizanidine HCl 4 mg PO TID #15 tablet 09/22/17 [Rx] Atenolol [Tenormin] 25 mg PO DAILY 06/10/18 [History] Lisinopril [Zestril] 20 mg PO DAILY 06/10/18 [History] BuPROPion XL (24 HR) [Wellbutrin Xl] 150 mg PO DAILY 06/11/18 [History] Metformin HCl 500 mg PO BID 06/11/18 [History] Albuterol Sulfate [Ventolin Hfa] 2 puff PO Q4-6H PRN 12/16/18 [History] Cholecalciferol (Vitamin D3) [Vitamin D3] 10,000 unit PO DAILY 12/16/18 [History] Dicyclomine [Bentyl] 20 mg PO QID 12/16/18 [History] Gabapentin [Neurontin] 400 mg PO TID 12/16/18 [History] Glimepiride [Amaryl] 4 mg PO DAILY 12/16/18 [History] Ranitidine HCl [Acid Business Administration Program Chair] 150 mg PO DAILY 12/16/18 [History] Allergy/AdvReac Type Severity Reaction Status Date / Time Penicillins [PCN] Allergy Anaphylaxis Verified 11/18/17 11:53 All Systems Reviewed: The remainder of the systems were reviewed and are negative - Constitutional Constitutional: no fever(s) - Cardiovascular Cardiovascular: edema, leg edema, pedal edema, no dyspnea - Respiratory Respiratory: no cough, no dyspnea - Musculoskeletal Musculoskeletal: no numbness, no tingling Physical Exam - Constitutional Vitals: Temp Pulse Resp BP Pulse Ox 99.4 F 72 17 108/62 97 12/18/18 10:58 12/18/18 10:58 12/18/18 10:58 12/18/18 10:58 12/18/18 10:58 Exam: Constitiutional: Alert and oriented x 3. Well nourished. No acute distress noted Vascular: 1/4 DP/PT LLE, CFT <3 sec to all digits LLE, warm to warm from tibia to toes LLE, erythema and 2/4 edema noted, erythema does not extend past demarcation line Neurologic: Sensation to touch, normal plantar response Dermatologic: Erythema and 2/4 edema noted to LLE, bullae noted with peeling skin noted to left lateral and anterior malleolus, thick yellow/brown purulent drainage noted to lateral proximal aspect of wound, Musculoskeletal: 4/5 muscle strength and normal tone LLE. Results - Labs Result Diagrams: 12/18/18 00:11 12/18/18 00:11 Labs: Abnormal lab results WBC 16.0 K/mcL (4.3-11.1) H 12/18/18 00:11 RBC 4.98 M/mcL (3.82-4.97) H 12/16/18 13:00 Hgb 10.7 g/dL (11.5-15.4) L D 12/18/18 00:11 Hct 33.8 % (35.3-44.9) L 12/18/18 00:11 MCV 82.4 fL (83.0-100.0) L 12/18/18 00:11 MCH 26.1 pg (28.0-33.3) L 12/18/18 00:11 MCHC 31.5 g/dL (31.6-35.5) L 12/16/18 13:00 MPV 9.1 fL (9.4-12.4) L 12/17/18 04:14 11.4 K/mcL (1.6-8.9) H 12/18/18 00:11 1.6 K/mcL (0.0-1.3) H 12/17/18 04:14 Sodium 132 mEq/L (136-145) L 12/18/18 00:11 Carbon Dioxide 21 mEq/L (23-29) L 12/16/18 13:00 BUN 21 mg/dL (6-20) H 12/18/18 00:11 Est GFR (Non-Af Amer) 52 (> 60) L 12/18/18 00:11 Glucose 303 mg/dL (70-105) H 12/18/18 00:11 POC Glucose 268 mg/dL (70-99) H 12/17/18 21:01 12.5 % (-5.6) H 12/16/18 13:25 Calcium 8.3 mg/dL (8.6-10.3) L 12/18/18 00:11 Magnesium 1.4 mg/dL (1.6-2.6) L 12/17/18 04:14 14 Units/L (30-223) L 12/16/18 13:00 Vancomycin Trough 12 mcg/mL (5-10) H 12/18/18 00:11 H & H 12/18/18 Range/Units 00:11 Hgb 10.7 L D (11.5-15.4) g/dL Hct 33.8 L (35.3-44.9) % All other labs normal. - Diagnostic results Ankle/Foot x-ray: report reviewed Ankle/Foot CT: report reviewed Consult Discharge Plan - Plan Referrals: Jaz Pascual, VISOR INSTALLER [Primary Care Provider] -
--- NOTE | 2018-12-18 13:30 | Infectious Disease Consult ---
Infectious Disease-Consult - Encounter Date/Time Date of Encounter: 12/18/18 Time of Encounter: 13:27 - Data of Consult Patient: new to practice Reason for consult: Left leg cellulitis Consult date: 12/18/18 Requesting Physician: Kevin Merritt Primary Care Provider: Jaz Pascual CNP - HPI HPI: Ms. Bills is a 53-year-old female with past medical history of asthma, COPD, diabetes, fibromyalgia, GERD, hypertension, and depression. The patient was admitted to the hospital 12/16/18 for left lower extremity cellulitis. We are consulted 12/18/18 for further workup and treatment recommendations for left lower extremity cellulitis. Briefly, the patient's a 53-year-old female with past medical history as stated above. The patient presented to the emergency department with a one-week history of left leg pain, redness, and swelling that started the Tuesday prior to presentation. She [place] and on Tuesday she noticed that she had some redness and swelling to the left lower extremity. On Tuesday, she was placed on oral doxycycline, but her symptoms continue to worsen so she presented to the ER for evaluation. Upon arrival, she was tachycardic and had leukocytosis. CK level was normal. She had a foot x- ray that showed findings consistent with cellulitis. A wound culture was obtained that was positive for group B strep and a gram-negative kandi. Blood cultures were obtained 2 sets are no growth to date. She was started empirically on cefepime and vancomycin and Flagyl and admitted to the hospital for further evaluation. Since admission, the patient's leukocytosis persists. She will low-grade temp yesterday with a MAXIMUM TEMPERATURE of 100.2. She was CT of the left lower extremity 12/17/18 50 showed findings consistent with cellulitis. She had progression of her symptoms so she had a repeat CT of the left ankle that showed findings consistent with abscess versus phlegmon and cellulitis. Podiatry has been consult and we are awaiting their recommendations. Her IV antibiotics were escalated to include meropenem, vancomycin, and Flagyl. We have been asked to evaluate and make further recommendations. - ROS Review of Systems: All systems reviewed and no additional remarkable complaints except as stated. - Results CBC & Chem 7: 12/18/18 00:11 12/18/18 00:11 - Exam Vitals: Temp Pulse Resp BP Pulse Ox 99.4 F 72 17 108/62 97 12/18/18 10:58 12/18/18 10:58 12/18/18 10:58 12/18/18 10:58 12/18/18 10:58 Exam: Head: Atraumatic, normal inspection, normocephalic. Eye: EOMI, PERRLA, no scleral icterus noted. ENT: Mucous membranes moist. No odontogenic infection noted. Neck: Normal inspection, no meningismus. Respiratory: Clear to auscultation. No rales, respiratory distress, rhonchi, or wheezes noted. Cardiovascular: Regular rate and rhythm, S1 and S2 audible. No murmurs, rubs, or gallops. GI: Soft, nondistended, normal bowel sounds. Extremities:No joint swelling, pedal edema, or tenderness noted. Back: Normal inspection. No vertebral tenderness noted. Neurological: Alert, oriented 3, no focal deficits. Psychiatric: normal affect, normal mood. Skin: Dry, intact, warm. Normal color. No rashes. Cetirizine HCl [Zyrtec] 10 mg PO DAILY 10/02/16 [History] Fluticasone/Salmeterol [Advair Hfa 115-21 Mcg Inhaler] 12 gm IH DAILY 10/02/16 [History] Paroxetine HCl [Paxil] 60 mg PO DAILY 10/02/16 [History] Tiotropium [Spiriva] 18 mcg IH 0700 10/02/16 [History] Tizanidine HCl 4 mg PO TID #15 tablet 09/22/17 [Rx] Atenolol [Tenormin] 25 mg PO DAILY 06/10/18 [History] Lisinopril [Zestril] 20 mg PO DAILY 06/10/18 [History] BuPROPion XL (24 HR) [Wellbutrin Xl] 150 mg PO DAILY 06/11/18 [History] Metformin HCl 500 mg PO BID 06/11/18 [History] Albuterol Sulfate [Ventolin Hfa] 2 puff PO Q4-6H PRN 12/16/18 [History] Cholecalciferol (Vitamin D3) [Vitamin D3] 10,000 unit PO DAILY 12/16/18 [History] Dicyclomine [Bentyl] 20 mg PO QID 12/16/18 [History] Gabapentin [Neurontin] 400 mg PO TID 12/16/18 [History] Glimepiride [Amaryl] 4 mg PO DAILY 12/16/18 [History] Ranitidine HCl [Acid Student Loan Counselor] 150 mg PO DAILY 12/16/18 [History] Allergy/AdvReac Type Severity Reaction Status Date / Time Penicillins [PCN] Allergy Anaphylaxis Verified 11/18/17 11:53 - Assessment and Plan (1) Sepsis Current Visit: Yes Status: Acute The patient had 2 sepsis criteria on admission. Likely secondary to left lower extremity cellulitis and abscess. White blood cell count remains elevated. Low-grade temp overnight. Tachycardia resolved. Blood cultures drawn 12/16/18 are no growth to date 2 sets. Qualifiers: Qualified Code(s): A41.9 - Sepsis, unspecified organism SNOMED Code(s): 32784962 (2) Cellulitis of left leg Current Visit: Yes Status: Acute Location: Left lower extremity. Causative organism: Group B strep and gram-negative kandi, final ID and sensitivities are pending. Etiology: Unclear. The patient is unaware of any trauma to the leg. She does report that they went [place] the day prior to her onset of symptoms, but denies any known insect or animal bites. Purulent. Failed outpatient oral antibiotics (doxycycline). CT of the left lower extremity 12/16/18 showed diffuse subcutaneous edema involving the imaged lower leg and foot. No subcutaneous gas or organized drainable fluid collection was identified. No acute osseous abnormality identified. This CT evidence for osteomyelitis. CK level was normal. Repeat CT of the left lower extremity 12/18/18 shows a shallow soft tissue ulceration along the anterior aspect of the ankle with suspected 10 x 10 x 9 mm abscess or focal phlegmon is changed is superior to the area of the ulceration. Extensive subcutaneous edema and skin thickening consistent with cellulitis noted. No evidence of deep soft tissue infection, or acute bone or joint abnormality. Podiatry consulted. Planning surgical debridement tomorrow. Currently on vancomycin, meropenem, and Flagyl. SNOMED Code(s): 609442577 (3) Abscess Current Visit: Yes Status: Suspected Location: Anterior aspect of the left ankle. Causative organism: Likely group B strep and gram-negative kandi based on wound cultures. Podiatry consult. Planning operative debridement tomorrow. Currently on meropenem, vancomycin, and Flagyl. SNOMED Code(s): 414904760 (4) COPD (chronic obstructive pulmonary disease) Current Visit: Yes Status: Chronic Qualifiers: Qualified Code(s): J44.9 - Chronic obstructive pulmonary disease, unspecified SNOMED Code(s): 27428334 (5) Diabetes Current Visit: Yes Status: Chronic Uncontrolled. Hemoglobin A1c 12.5%. Recommend aggressive glucose monitoring and control to promote wound healing and prevent reinfection. Management per the primary team. Qualifiers: Diabetes mellitus type: type 2 Diabetes mellitus terminologist insulin use: without senior care use Diabetes mellitus complication status: without complication Qualified Code(s): E11.9 - Type 2 diabetes mellitus without complications SNOMED Code(s): 40004214 (6) Penicillin allergy Current Visit: Yes Status: Acute Reports anaphylactic reaction to penicillin when taken 30 years ago. SNOMED Code(s): 06620946 - Recommendations Recommendations: Check ESR and CRP. Await blood cultures to finalize. Await wound cultures to finalize. Await intraoperative findings and cultures. Wound care per podiatry. Diabetes management per the primary team. Continue vancomycin IV. Pharmacy to dose. Goal trough approximately 15. Discontinue meropenem. Start Flagyl 2 g IV every 12 hours. Continue Flagyl 500 mg 3 times a day, but can switch to oral formulation. Duration of treatment depends on the clinical picture. Monitor renal function for drug toxicity and dose adjust antibiotics. Past Med Surg Social Fam HX - Past Medical History Medical history: asthma, COPD, diabetes, fibromyalgia, GERD, hypertension Additional medical history: precancerous polyps Psychiatric history: depression - Past Surgical History Surgical History: , hysterectomy, other Additional surgical history: carpal tunnes,. rhinoplasty. colonoscopy - Social History Smoking Status: Current every day smoker Smokeless Tobacco Status: No Alcohol use: none Drug use: none - Family History Mother Hx Family Respiratory Disorders: No Hx Family Endocrine Disorder: No Father Hx Family Respiratory Disorders: Yes Consult Discharge Plan - Plan Referrals: Jaz Pascual, AIX ARCHITECT [Primary Care Provider] - - Attending Attestation I have personally performed a face to face evaluation on this patient. I have reviewed and agree with the care plan. History and Exam by me shows: Patient seen and examined. Clinically she is doing well. She is in good spirits. Significant other at bedside. Assessment and plan: Left foot abscess noted on the CT scan. Causative organism not clear but like strep and a gram-negative kandi Going to surgery I think tomorrow for I&D Await Intra-Op cultures Continue current antibiotic therapy Monitor labs closely Patient is a smoker but she does not want a nicotine patch We need adequate glucose control
--- NOTE | 2018-12-18 13:48 | Internal Med Progress Note ---
Hospitalist Progress Note - Encounter Date of Encounter: 12/18/18 Time of Encounter: 09:00 - Subjective Interval History: Patient still has left ankle pain, swelling, skin redness and tenderness. The size of skin redness about the same with yesterday. Patient has low fever. Denies nausea or vomiting. - Exam Vitals: Temp Pulse Resp BP Pulse Ox 99.4 F 72 17 108/62 97 12/18/18 10:58 12/18/18 10:58 12/18/18 10:58 12/18/18 10:58 12/18/18 10:58 Exam: Pt is AAO x 3, in NAD HEENT: NC/AT, PERRL Neck: Supple, no JVD, no LAD Lungs: CTA b/l Heart: S1S2, RRR Abd: Soft, nontender, BS present Ext: ROM wnl, no pedal edema, left ankle skin redness and warmth, with blister on the surface. Neuro: No focal deficit - Assessment and Plan (1) DVT prophylaxis Current Visit: Yes Status: Acute Assessment and Plan: heparin sc (2) Cellulitis of left leg Current Visit: Yes Status: Acute Assessment and Plan: Patient has skin redness and warmth and tenderness. Repeat CT shows subcutaneous abscess, no gas. - Cover patient with Vanco, meropenem, and Flagyl at this point. - Continue IV fluid - Podiatry consult appreciated, may need debridement or I/D. - ID consult appreciated (3) Sepsis Current Visit: Yes Status: Acute Assessment and Plan: Sepsis 2/2 to cellulitis with fever and leukocytosis. - Obtain blood cultures. Start on vanc, meropenem and metronidazole - Continue IV fluid - Lactate level 0.6 (4) COPD (chronic obstructive pulmonary disease) Current Visit: Yes Status: Acute Assessment and Plan: No acute exacerbation. Nebs PRN (5) Diabetes Current Visit: Yes Status: Acute Assessment and Plan: Continue basal and sliding scale insulin and monitor fingersticks. Up titrate insulin dose as glucose is not well controlled (6) Hyponatremia Current Visit: Yes Status: Acute Assessment and Plan: Aaron hypovolemic hyponatremia with elevated glucose. Na 132 today. Control sugars. Continue IV fluids with normal saline - Time Spent with Patient Total time spent is greater than 50% in coordination of care (as documented) at patient's floor/unit and/or counseling patient: 40 minutes Greater than 35 minutes Plan of Care Discussed with: patient Internal Medicine: Result - Labs CBC & Chem 7: 12/18/18 00:11 12/18/18 00:11 Labs: Short CBC 12/18/18 Range/Units 00:11 WBC 16.0 H (4.3-11.1) K/mcL Hgb 10.7 L D (11.5-15.4) g/dL Hct 33.8 L (35.3-44.9) % Plt Count 305 (140-400) K/mcL Neutrophils # 11.4 H (1.6-8.9) K/mcL BMP 12/18/18 00:11 Sodium 132 L Potassium 4.5 Chloride 101 Carbon Dioxide 24 BUN 21 H Creatinine 1.11 Glucose 303 H Calcium 8.3 L - Impressions Impressions Ankle CT 12/18/18 10:00 IMPRESSION: Shallow soft tissue ulceration along the anterior aspect of the ankle with suspected 10 x 10 x 9 mm abscess or focal phlegmonous change just superior to the area of the ulceration. Extensive subcutaneous edema and skin thickening consistent with cellulitis. No evidence of deep soft tissue infection. No acute bone or joint abnormality. Mild tibiotalar joint osteoarthritis. D/ / 12/18/2018 11:07:23 Anival Rodgers MD / Helena Watts Interpreting Provider: Anival Rodgers MD Consult Discharge Plan - Plan Referrals: Jaz Pascual, EXTRACTOR OPERATOR [Primary Care Provider] - (3) Sepsis Qualifiers: Qualified Code(s): A41.9 - Sepsis, unspecified organism (4) COPD (chronic obstructive pulmonary disease) Qualifiers: Qualified Code(s): J44.9 - Chronic obstructive pulmonary disease, unspecified (5) Diabetes Qualifiers: Qualified Code(s): E11.9 - Type 2 diabetes mellitus without complications
[2018-12-18 14:11] LABS: C-Reactive Protein 259 mg/L (Less than 10)
[2018-12-18] MEDS: Acetaminophen 325 MG TABLET PO PRN ×2 (14:16→20:50)
[2018-12-18] MEDS: Cefepime HCl 2,000 MG in Water for inj. (sterile) 20 ML IVPB SCH (17:02)
[2018-12-18] MEDS: Nicotine 21 MG PATCH.TD24 TD SCH (17:25)
[2018-12-18] MEDS ORDERED: Insulin DETEMIR 100 UNIT/ML X5UNITS SQ SCH (21:00)
[2018-12-19] MEDS: MetroNIDAZOLE 500 MG/100 ML 500 MG/100 ML BAG IVPB SCH ×2 (00:47→08:56)
[2018-12-19] MEDS: *HR* OxyCODONE/APAP 5/325 TABLET PO PRN ×4 (00:47→21:25)
[2018-12-19] MEDS: Acetaminophen 325 MG TABLET PO PRN (03:20)
[2018-12-19] MEDS: *HR* HYDROcodone/Acet 5/325 mg TABLET PO PRN ×3 (03:25→18:08)
[2018-12-19] MEDS: 0.9 % Sodium Chloride 1,000 ML IVC SCH ×2 (05:39→08:54)
[2018-12-19] MEDS: Cefepime HCl 2,000 MG in Water for inj. (sterile) 20 ML IVPB SCH ×2 (05:40→18:03)
[2018-12-19] MEDS: *HR* Heparin 5,000 UNIT/ML VIAL SQ SCH ×2 (05:41→18:02)
[2018-12-19 06:33] LABS: Basophils % 0.3 %; Eosinophils # 0.4 K/mcL (0.0-0.6); Eosinophils % 3.5 %; Hemoglobin 10.3 g/dL (11.5-15.4); Immature Granulocytes % 1.3 % (0-4); Lymphocytes # 2.8 K/mcL (0.6-4.6); Lymphocytes % 23.9 %; Mean Corpuscular HGB Conc 31.2 g/dL (31.6-35.5); Mean Corpuscular Hemoglobin 26.3 pg (28.0-33.3); Mean Corpuscular Volume 84.2 fL (83.0-100.0); Mean Platelet Volume 9.5 fL (9.4-12.4); Monocytes # 0.9 K/mcL (0.0-1.3); Monocytes % 8.1 %; Platelet Count 312 K/mcL (140-400); Red Blood Count 3.92 M/mcL (3.82-4.97); Red Cell Distribution Width 13.2 % (11.5-14.5); Segmented Neutrophils % 62.9 %; White Blood Count 11.5 K/mcL (4.3-11.1)
[2018-12-19 06:34] LABS: Neutrophils # 7.2 K/mcL (1.6-8.9)
[2018-12-19 06:53] LABS: BUN/Creatinine Ratio 20 (6-26); Blood Urea Nitrogen 15 mg/dL (6-20); Carbon Dioxide 28 mEq/L (23-29); Chloride 106 mEq/L (98-107); Glucose 94 mg/dL (70-105); Osmolality,Calculated 291 (280-300); Potassium 4.4 mEq/L (3.5-5.1); Sodium 140 mEq/L (136-145); eGFR For African Americans > 60 (> 60); eGFR For Non-African Americans > 60 (> 60)
[2018-12-19 06:54] LABS: Reactive Lymphocytes Present (Not Present)
[2018-12-19 06:55] LABS: Platelet Estimate Normal (Normal)
[2018-12-19] MEDS: Budesonide/Formoterol 160/4.5 1 PUFF INH IH SCH ×2 (07:33→20:43)
[2018-12-19] MEDS: Insulin LISPRO 300 UNITS/3 ML VIAL SQ SCH ×4 (07:38→19:58)
[2018-12-19] MEDS: BuPROPion XL (24 HR) 150 MG TABLET PO SCH (08:57)
[2018-12-19] MEDS: Nicotine 21 MG PATCH.TD24 TD SCH (08:57)
[2018-12-19] MEDS: tiZANidine 4 MG TABLET PO SCH ×3 (08:57→19:58)
[2018-12-19] MEDS: Lisinopril 20 MG TABLET PO SCH (08:57)
[2018-12-19] MEDS: Gabapentin 400 MG CAPSULE PO SCH ×3 (08:57→19:58)
[2018-12-19] MEDS: Famotidine 20 MG TABLET PO SCH (08:57)
[2018-12-19] MEDS: Cholecalciferol (D-3) 1,000 UNIT (25MCG) TABLET PO SCH (08:57)
[2018-12-19] MEDS ORDERED: Gadolinium Contrast Agent (WT Based) IV PRN ×2 (09:24→14:37)
[2018-12-19] MEDS ORDERED: *HR* Midazolam HCl 2 MG/2 ML VIAL ONE (10:40)
[2018-12-19] MEDS ORDERED: *HR* FentaNYL (PF) 100 MCG/2 ML VIAL ONE (10:40)
[2018-12-19] MEDS ORDERED: *HR* Propofol 200 MG/20 ML VIAL IVP ONE (10:40)
--- NOTE | 2018-12-19 10:51 | Anesthesia Evaluation PreOp ---
Date of Encounter: 12/19/18 Time of Encounter: 10:49 - Past History Planned Operation: I and D Left foot Cardiac History: HTN Pulmonary History: Smoker, Pack/yr (30), COPD (on 2l at night) PC SUPPORT SPECIALIST History: Other (depression, fibromyalgia) Other Medical History: GERD, Other (hyponatremia-resolved) Anesthesia History: No Prior Anesthetic Complications, Past Anesthesia (Csectio n, CTR, hysterectomy, rhinoplasty) Alcohol Use: none Drug use: none Medications and Allergies Cetirizine HCl [Zyrtec] 10 mg PO DAILY 10/02/16 [History] Fluticasone/Salmeterol [Advair Hfa 115-21 Mcg Inhaler] 12 gm IH DAILY 10/02/16 [History] Paroxetine HCl [Paxil] 60 mg PO DAILY 10/02/16 [History] Tiotropium [Spiriva] 18 mcg IH 0700 10/02/16 [History] Tizanidine HCl 4 mg PO TID #15 tablet 09/22/17 [Rx] Atenolol [Tenormin] 25 mg PO DAILY 06/10/18 [History] Lisinopril [Zestril] 20 mg PO DAILY 06/10/18 [History] BuPROPion XL (24 HR) [Wellbutrin Xl] 150 mg PO DAILY 06/11/18 [History] Metformin HCl 500 mg PO BID 06/11/18 [History] Albuterol Sulfate [Ventolin Hfa] 2 puff PO Q4-6H PRN 12/16/18 [History] Cholecalciferol (Vitamin D3) [Vitamin D3] 10,000 unit PO DAILY 12/16/18 [History] Dicyclomine [Bentyl] 20 mg PO QID 12/16/18 [History] Gabapentin [Neurontin] 400 mg PO TID 12/16/18 [History] Glimepiride [Amaryl] 4 mg PO DAILY 12/16/18 [History] Ranitidine HCl [Acid Therapeutic Mentor] 150 mg PO DAILY 12/16/18 [History] Allergy/AdvReac Type Severity Reaction Status Date / Time Penicillins [PCN] Allergy Anaphylaxis Verified 11/18/17 11:53 - Meds/Allergy Pre-op Review Medications Reviewed: Yes Allergies Reviewed: Yes Beta Blockers on Current Med List: Yes If Beta Blockers taken, Date/Time (Last Dose taken): 153om 12/19/18 Anesthesia Results - Labs 12/19/18 04:38 12/19/18 04:38 - Imaging EKG: report reviewed (Impressions: LVEF 60-65%. Normal LV chamber size, wall thickness and function. Normal left ventricular diastolic function. Normal right ventricular structure and function. Trace tricuspid regurgitation. Mild pulmonary hypertension.) Anesthesia Exam Vital Signs/O2 Sat, Most Current Temp Pulse Resp BP Pulse Ox 98.8 F 80 16 138/71 92 12/19/18 07:04 12/19/18 07:04 12/19/18 07:33 12/19/18 07:04 12/19/18 07:33 Weight: 104kg NPO (# of Hours): >8 - HEENT Pupil (Motor): Pupils equal, EOMI Mallampati: III Teeth: Edentulous Oral Opening: Greater than 3 - PC SUPPORT SPECIALIST LOC: Oriented PC SUPPORT SPECIALIST Motor: Normal RUE, Normal LUE, Normal RLE, Normal LLE, Normal Face PC SUPPORT SPECIALIST Sensory: Normal: RUE, LUE, RLE, LLE, Face - Cardiac Rhythm: Regular - Pulmonary Breath Sounds: bilateral Clear Respiratory Effort: Symmetrical Anesthesia Assess/Plan ASA Score: 3 Level of consciousness: Cooperative Anesthetic Plan: General, MAC Monitoring Plan: Standard Monitors Recovery Plan: PACU
[2018-12-19] MEDS ORDERED: Albuterol 2.5 MG/3 ML NEBULIZER IH ONE (10:59)
[2018-12-19] MEDS ORDERED: Albuterol 2.5 MG/3 ML NEBULIZER ONE (11:03)
[2018-12-19] MEDS ORDERED: ROPIVACAINE/PF/NS 0.25% 1 EACH SYRINGE INTRAART ONE (11:05)
[2018-12-19] MEDS ORDERED: *HR* OxyCODONE Immed Rel 5 MG TABLET PO PRN (11:06)
--- NOTE | 2018-12-19 13:16 | Orthopedic Operative Note ---
Date of procedure: 12/19/18 Pre-op diagnosis: Abscess wound left foot ankle Post-op diagnosis: same Procedure: 12/19/18 13:11 #1: #1: Incision and drainage left foot and ankle multiple planes Complications: None Anesthesia: local, other (General anesthesia per LMA) Local Anesthetics: Other (Ropivacaine high ankle block) Surgeon: Mikey Jin Was there an assistant professor sculpture present: No Estimated blood loss (cc): 20 Tourniquet Time (Minutes): 0 Specimen: Cultures aerobe and anaerobe Condition: stable Disposition: PACU Procedure in Detail: 12/19/18 13:12 Details in summary of procedure: Patient brought to surgical suite. Sign in procedure performed. Patient transferred the surgical table and positioned properly safely securely. Left foot leg elevated on foam block. No tourniquet used. Patient underwent smooth induction general anesthesia was achieved per LMA. High ankle block was then placed after cleansing the skin 3 times with alcohol. Superficial peroneal nerve and sural nerve were blocked. Left foot prepped and draped usual sterile manner. Surgical timeout was taken. Noted to proximally 45 cm from a wound on the anterolateral aspect left ankle and distally for 15 cm. A 20 cm incision was then begun just at the surgical neck of the fourth metatarsal brought proximally along the dorsal lateral aspect of the foot through the ulcerative abscess and then proximally on the brenda lateral aspect of the ankle. Immediate purulent drainage was noted and cultured. The abscess was noted to track medially over the anterior aspect of the ankle toward the medial malleolus. Dissection was continued with a Metzenbaum scissor and a pickup. Throughout the ankle and distally on the dorsal aspect of the foot and lateral aspect foot as far laterally as fifth metatarsal cuboid joint. All necrotic tissue was then excised using a pickup and Metzenbaum down the deep fascial layer. Small bleeders encountered were bovied as necessary. Wound was then flushed with copious amounts sterile saline. The wound was then debrided with a ultrasonic Misonix debrider throughout the wound from medial to lateral proximal to distal. Wound was then flushed with copious amounts sterile saline again. Again a small bleeders encountered were bovied judiciously. No further loculated abscesses were noted. Finger dissection also afforded exploration of the wound throughout. As noted the abscess tracked to the dorsal aspect of the foot overlying the second metatarsal as far medially as the anterolateral aspect the medial malleolus. Retention sutures were placed with 302 0 Prolene. Wound VAC was placed. function properly. Estimated blood loss less than 20 mL complications none patient sent to PACU in good condition with vital signs stable.
[2018-12-19] MEDS: *HR* HYDROmorphone (PF) 1 MG/ML SYRINGE IVP PRN ×2 (13:43→13:48)
[2018-12-19] MEDS ORDERED: *HR* Promethazine 25 MG/ML VIAL ONE (13:49)
[2018-12-19] MEDS ORDERED: *HR* Promethazine 25 MG/ML VIAL IVP PRN (13:49)
[2018-12-19] MEDS ORDERED: Ondansetron 4 MG/2 ML VIAL IVP ONE (13:49)
--- NOTE | 2018-12-19 14:09 | Anesthesia Evaluation Post Op ---
Date of Encounter: 12/19/18 Time of Encounter: 14:07 - Vital Signs Vital Signs: Vital Signs/O2 Sat, Most Current Temp Pulse Resp BP Pulse Ox 98.5 F 67 18 166/86 94 12/19/18 13:40 12/19/18 14:02 12/19/18 14:02 12/19/18 14:02 12/19/18 14:02 - Lungs Lungs: Clear Ascult./Percussion - Airway Airway: Non-obstructed - Cardiovascular Regular Rate - Mental Status Mental Status: Alert & Oriented, Answers Appropriately - Pain Pain Scale used: Numeric (1 - 10) (tolerable) - Nausea Vomiting Nausea Vomiting: Not Present - Hydration Hydration: NPO Notes: 12/19/18 14:07 pt is a very difficult iv access, we made several attempts to place a second IV in OR and again in PACU once her IV infiltrated, pt will have powerglide place once she arrives on nursing floor - Discharge PostOp Status: Transfer Patient to floor
[2018-12-19] MEDS ORDERED: Acetaminophen 325 MG TABLET PO PRN (14:37)
[2018-12-19] MEDS ORDERED: Ipratropium/Albuterol Neb 3 ML IH PRN (14:37)
[2018-12-19] MEDS ORDERED: Dextrose Gel 15 GM/37.5 ML TUBE PO PRN ×2 (14:37)
[2018-12-19] MEDS ORDERED: *HR* Dextrose 50 % in Water (Syg) 50 ML SYRINGE IVP PRN (14:37)
[2018-12-19] MEDS ORDERED: D5% in Water 1,000 ML IVC PRN (14:37)
[2018-12-19] MEDS ORDERED: 0.9 % Sodium Chloride 1,000 ML IVC SCH (14:37)
[2018-12-19] MEDS ORDERED: Naloxone 0.4 MG/ML INJ IVP PRN (14:37)
--- NOTE | 2018-12-19 16:04 | Infectious Disease Progress No ---
ID Progress Note Date of Encounter: 12/19/18 Time of Encounter: 16:02 - Subjective Subjective: Patient seen and examined. No acute events noted overnight. Postop day 0 from I&D of the left ankle. States overall she feels well. Denies fevers, chills, rigors. Denies chest pain, shortness of breath, or cough. Reports some nausea earlier that has resolved with antiemetic medications. Denies vomiting, diarrhea, or constipation. Denies abdominal pain or urinary complaints. Reports mild pain at the surgical site. Denies oral thrush or skin rashes. - Objective CBC & Chem 7: 12/21/18 03:12 12/21/18 03:12 - Exam Vitals: Temp Pulse Resp BP Pulse Ox 97.3 F L 64 14 169/74 93 12/19/18 14:12 12/19/18 14:12 12/19/18 14:12 12/19/18 14:12 12/19/18 14:12 Exam: Head: Atraumatic, normal inspection, normocephalic. Eye: EOMI, PERRLA, no scleral icterus noted. ENT: Mucous membranes moist. No odontogenic infection noted. Neck: Normal inspection, no meningismus. Respiratory: Clear to auscultation. No rales, respiratory distress, rhonchi, or wheezes noted. Cardiovascular: Regular rate and rhythm, S1 and S2 audible. No murmurs, rubs, or gallops. GI: Soft, nondistended, normal bowel sounds. Extremities:No joint swelling, pedal edema, or tenderness noted. Left foot and ankle dressing clean, dry, and intact. Erythema extending above the dressing improved. Back: Normal inspection. No vertebral tenderness noted. Neurological: Alert, oriented 3, no focal deficits. Psychiatric: normal affect, normal mood. Skin: Dry, intact, warm. Normal color. No rashes. - Assessment and Plan (1) Sepsis Current Visit: Yes Status: Acute The patient had 2 sepsis criteria on admission. Likely secondary to left lower extremity cellulitis and abscess. White blood cell count improved. Afebrile overnight. Tachycardia resolved. Blood cultures drawn 12/16/18 are no growth to date 2 sets. Qualifiers: Qualified Code(s): A41.9 - Sepsis, unspecified organism SNOMED Code(s): 63826404 (2) Cellulitis of left leg Current Visit: Yes Status: Acute Location: Left lower extremity. Causative organism: Group B strep and Klebsiella pneumoniae. Etiology: Unclear. The patient is unaware of any trauma to the leg. She does report that [place] to her onset of symptoms, but denies any known insect or animal bites. Purulent. Failed outpatient oral antibiotics (doxycycline). CT of the left lower extremity 12/16/18 showed diffuse subcutaneous edema involving the imaged lower leg and foot. No subcutaneous gas or organized drainable fluid collection was identified. No acute osseous abnormality identified. No CT evidence for osteomyelitis. CK level was normal. Repeat CT of the left lower extremity 12/18/18 shows a shallow soft tissue ulceration along the anterior aspect of the ankle with suspected 10 x 10 x 9 mm abscess or focal phlegmon is changed is superior to the area of the ulceration. Extensive subcutaneous edema and skin thickening consistent with cellulitis noted. No evidence of deep soft tissue infection, or acute bone or joint abnormality. Podiatry consulted. Status post I&D 12/19/[address] Jin. Intraoperative cultures were obtained and are pending. Currently on vancomycin, cefepime, and Flagyl. SNOMED Code(s): 476012742 (3) Abscess Current Visit: Yes Status: Acute Location: Anterior aspect of the left ankle. Causative organism: Likely group B strep and gram-negative kandi based on wound cultures. Podiatry consult. Status post I&D 12/19/[address] Jin. Currently on cefepime, vancomycin, and Flagyl. SNOMED Code(s): 597194482 (4) COPD (chronic obstructive pulmonary disease) Current Visit: Yes Status: Chronic Qualifiers: Qualified Code(s): J44.9 - Chronic obstructive pulmonary disease, unspecified SNOMED Code(s): 96978525 (5) Diabetes Current Visit: Yes Status: Chronic Uncontrolled. Hemoglobin A1c 12.5%. Recommend aggressive glucose monitoring and control to promote wound healing and prevent reinfection. Management per the primary team. Qualifiers: Diabetes mellitus type: type 2 Diabetes mellitus exterminator helper insulin use: without exterminator helper use Diabetes mellitus complication status: without complication Qualified Code(s): E11.9 - Type 2 diabetes mellitus without complications SNOMED Code(s): 35189199 (6) Penicillin allergy Current Visit: Yes Status: Acute Reports anaphylactic reaction to penicillin when taken 30 years ago. SNOMED Code(s): 03682819 - Recommendations Recommendations: Await blood cultures to finalize. Await wound cultures to finalize. Await intraoperative cultures. Wound care per podiatry. Diabetes management per the primary team. Continue vancomycin IV. Pharmacy to dose. Goal trough approximately 15. Continue cefepime 2 g IV every 12 hours. Continue Flagyl 500 mg 3 times a day, but can switch to oral formulation. Duration of treatment depends on the clinical picture. Monitor renal function for drug toxicity and dose adjust antibiotics. Consult Discharge Plan - Plan Referrals: Jaz Pascual, WORKERS COMPENSATION COORDINATOR [Primary Care Provider] - - Attending Attestation I have personally performed a face to face evaluation on this patient. I have r eviewed and agree with the care plan. History and Exam by me shows: Assessment and plan: 1.Left foot abscess noted on the CT scan. Causative organism not clear but like strep and K. pneumoniae 2.sepsis 3.COPD 4.DM 2 5.PCN allergies Recommendations: Await blood cultures to finalize. Await wound cultures to finalize. Await intraoperative cultures. Wound care per podiatry. Diabetes management per the primary team. Continue vancomycin IV. Pharmacy to dose. Goal trough approximately 15. Continue cefepime 2 g IV every 12 hours. Continue Flagyl 500 mg 3 times a day, but can switch to oral formulation. Duration of treatment depends on the clinical picture. Monitor renal function for drug toxicity and dose adjust antibiotics.
[2018-12-19] MEDS ORDERED: Insulin LISPRO 300 UNITS/3 ML VIAL SQ SCH (16:30)
[2018-12-19] MEDS ORDERED: metroNIDAZOLE 500 MG TABLET PO SCH (17:00)
--- NOTE | 2018-12-19 17:25 | Internal Med Progress Note ---
Hospitalist Progress Note - Encounter Date of Encounter: 12/19/18 Time of Encounter: 09:00 - Subjective Interval History: Patient feels better. Less left ankle pain. No fever. WBC trended down - Exam Vitals: Temp Pulse Resp BP Pulse Ox 98.6 F 68 16 112/70 95 12/19/18 16:50 12/19/18 16:50 12/19/18 16:50 12/19/18 16:50 12/19/18 16:50 Exam: Pt is AAO x 3, in NAD HEENT: NC/AT, PERRL Neck: Supple, no JVD, no LAD Lungs: CTA b/l Heart: S1S2, RRR Abd: Soft, nontender, BS present Ext: ROM wnl, no pedal edema, left ankle skin redness and warmth, with blister on the surface. Neuro: No focal deficit - Assessment and Plan (1) DVT prophylaxis Current Visit: Yes Status: Acute Assessment and Plan: heparin sc (2) Cellulitis of left leg Current Visit: Yes Status: Acute Assessment and Plan: Patient has skin redness and warmth and tenderness. Repeat CT shows s ubcutaneous abscess, no gas. - Cover patient with Vanco, meropenem, and Flagyl at this point. - Continue IV fluid - Podiatry consult appreciated, will have I/D today - ID consult appreciated, on Vanco, cefepime, and Flagyl (3) Sepsis Current Visit: Yes Status: Acute Assessment and Plan: Sepsis 2/2 to cellulitis with fever and leukocytosis. - Obtain blood cultures. Cont on vanc, cefepime and metronidazole per ID - Wound culture shows Klebsiella and Group B Strep, sensitive to cefepime (4) COPD (chronic obstructive pulmonary disease) Current Visit: Yes Status: Chronic Assessment and Plan: No acute exacerbation. Nebs PRN (5) Diabetes Current Visit: Yes Status: Chronic Assessment and Plan: Continue basal and sliding scale insulin and monitor fingersticks. (6) Hyponatremia Current Visit: Yes Status: Resolved Assessment and Plan: Aaron hypovolemic hyponatremia with elevated glucose. Na 140 today. Control sugars. DC IV fluid - Time Spent with Patient Total time spent is greater than 50% in coordination of care (as documented) at patient's floor/unit and/or counseling patient: 40 minutes Greater than 35 minutes Internal Medicine: Result - Labs CBC & Chem 7: 12/19/18 04:38 12/19/18 04:38 Labs: Short CBC 12/19/18 Range/Units 04:38 WBC 11.5 H (4.3-11.1) K/mcL Hgb 10.3 L (11.5-15.4) g/dL Hct 33.0 L (35.3-44.9) % Plt Count 312 (140-400) K/mcL Neutrophils # 7.2 (1.6-8.9) K/mcL BMP 12/19/18 04:38 Sodium 140 Potassium 4.4 Chloride 106 Carbon Dioxide 28 BUN 15 Creatinine 0.76 Glucose 94 Calcium 9.0 Consult Discharge Plan - Plan Referrals: Jaz Pascual, SERVICE BAR CASHIER [Primary Care Provider] - (3) Sepsis Qualifiers: Qualified Code(s): A41.9 - Sepsis, unspecified organism (4) COPD (chronic obstructive pulmonary disease) Qualifiers: Qualified Code(s): J44.9 - Chronic obstructive pulmonary disease, unspecified (5) Diabetes Qualifiers: Diabetes mellitus type: type 2 Diabetes mellitus penitentiary insulin use: without penitentiary use Diabetes mellitus complication status: without complication Qualified Code(s): E11.9 - Type 2 diabetes mellitus without complications
[2018-12-19] MEDS ORDERED: Ropivicaine 0.25% 20 ml Syringe INTRAART ONE (17:30)
[2018-12-19] MEDS: metroNIDAZOLE 500 MG TABLET PO SCH (18:02)
[2018-12-19] MEDS: Insulin DETEMIR 100 UNIT/ML X5UNITS SQ SCH (20:29)
[2018-12-19 22:24] LABS: BUN/Creatinine Ratio 19 (6-26); Blood Urea Nitrogen 20 mg/dL (6-20); Calcium 8.3 mg/dL (8.6-10.3); Carbon Dioxide 24 mEq/L (23-29); Chloride 100 mEq/L (98-107); Osmolality,Calculated 299 (280-300); Potassium 4.9 mEq/L (3.5-5.1); Sodium 130 mEq/L (136-145); eGFR For African Americans > 60 (> 60); eGFR For Non-African Americans 54 (> 60)
[2018-12-20 00:06] LABS: Glucose 574 mg/dL (70-105)
[2018-12-20] MEDS: *HR* HYDROcodone/Acet 5/325 mg TABLET PO PRN ×4 (02:25→22:35)
[2018-12-20 03:43] LABS: BUN/Creatinine Ratio 22 (6-26); Blood Urea Nitrogen 19 mg/dL (6-20); Calcium 8.4 mg/dL (8.6-10.3); Carbon Dioxide 25 mEq/L (23-29); Chloride 105 mEq/L (98-107); Glucose 286 mg/dL (70-105); Osmolality,Calculated 293 (280-300); Potassium 4.5 mEq/L (3.5-5.1); Sodium 135 mEq/L (136-145); eGFR For African Americans > 60 (> 60); eGFR For Non-African Americans > 60 (> 60)
[2018-12-20 03:47] LABS: Basophils % 0.3 %; Eosinophils # 0.1 K/mcL (0.0-0.6); Eosinophils % 0.4 %; Hematocrit 29.9 % (35.3-44.9); Hemoglobin 9.2 g/dL (11.5-15.4); Immature Granulocytes % 1.5 % (0-4); Lymphocytes # 1.8 K/mcL (0.6-4.6); Mean Corpuscular HGB Conc 30.8 g/dL (31.6-35.5); Mean Corpuscular Hemoglobin 26.2 pg (28.0-33.3); Mean Corpuscular Volume 85.2 fL (83.0-100.0); Mean Platelet Volume 9.8 fL (9.4-12.4); Monocytes % 7.4 %; Neutrophils # 10.6 K/mcL (1.6-8.9); Platelet Count 310 K/mcL (140-400); Red Blood Count 3.51 M/mcL (3.82-4.97); Red Cell Distribution Width 13.3 % (11.5-14.5); Segmented Neutrophils % 77.4 %; White Blood Count 13.7 K/mcL (4.3-11.1)
[2018-12-20] MEDS: *HR* OxyCODONE/APAP 5/325 TABLET PO PRN ×3 (04:49→17:19)
[2018-12-20] MEDS: Cefepime HCl 2,000 MG in Water for inj. (sterile) 20 ML IVPB SCH ×2 (05:57→17:18)
[2018-12-20] MEDS: *HR* Heparin 5,000 UNIT/ML VIAL SQ SCH ×2 (05:57→17:45)
[2018-12-20] MEDS: Insulin LISPRO 300 UNITS/3 ML VIAL SQ SCH ×4 (08:41→21:10)
[2018-12-20] MEDS: Famotidine 20 MG TABLET PO SCH (08:42)
[2018-12-20] MEDS: Lisinopril 20 MG TABLET PO SCH (08:42)
[2018-12-20] MEDS: metroNIDAZOLE 500 MG TABLET PO SCH ×3 (08:42→17:19)
[2018-12-20] MEDS: Cholecalciferol (D-3) 1,000 UNIT (25MCG) TABLET PO SCH (08:42)
[2018-12-20] MEDS: Nicotine 21 MG PATCH.TD24 TD SCH (08:43)
[2018-12-20] MEDS: BuPROPion XL (24 HR) 150 MG TABLET PO SCH (08:43)
[2018-12-20] MEDS: Gabapentin 400 MG CAPSULE PO SCH ×3 (08:43→21:11)
[2018-12-20] MEDS: tiZANidine 4 MG TABLET PO SCH ×3 (08:43→21:11)
[2018-12-20] MEDS: Budesonide/Formoterol 160/4.5 1 PUFF INH IH SCH ×2 (11:23→20:48)
--- NOTE | 2018-12-20 11:51 | Infectious Disease Progress No ---
ID Progress Note Date of Encounter: 12/20/18 Time of Encounter: 11:15 - Subjective Subjective: Patient seen and examined. No acute events noted overnight. Postop day 1 from I&D of the left ankle. States overall she feels well. Denies fevers, chills, rigors. Denies chest pain, shortness of breath, or cough. Reports some nausea earlier that has resolved with antiemetic medications. Denies vomiting, diarrhea, or constipation. Denies abdominal pain or urinary complaints. Reports mild pain at the surgical site. Denies oral thrush or skin rashes. - Objective CBC & Chem 7: 12/20/18 02:15 12/20/18 02:15 - Exam Vitals: Temp Pulse Resp BP Pulse Ox 98.5 F 62 16 94/56 96 12/20/18 10:54 12/20/18 10:54 12/20/18 11:26 12/20/18 10:54 12/20/18 11:26 Exam: Head: Atraumatic, normal inspection, normocephalic. Eye: EOMI, PERRLA, no scleral icterus noted. ENT: Mucous membranes moist. No odontogenic infection noted. Neck: Normal inspection, no meningismus. Respiratory: Clear to auscultation. No rales, respiratory distress, rhonchi, or wheezes noted. Cardiovascular: Regular rate and rhythm, S1 and S2 audible. No murmurs, rubs, or gallops. GI: Soft, nondistended, normal bowel sounds. Extremities:No joint swelling, pedal edema, or tenderness noted. Left foot and ankle dressing clean, dry, and intact. Erythema extending above the dressing improved. Wound VAC noted with serosanguinous drainage noted in the canister. No leak. Back: Normal inspection. No vertebral tenderness noted. Neurological: Alert, oriented 3, no focal deficits. Psychiatric: normal affect, normal mood. Skin: Dry, intact, warm. Normal color. No rashes. - Assessment and Plan (1) Sepsis Current Visit: Yes Status: Acute The patient had 2 sepsis criteria on admission. Likely secondary to left lower extremity cellulitis and abscess. White blood cell count improved. Afebrile overnight. Tachycardia resolved. Blood cultures drawn 12/16/18 are no growth to date 2 sets. Qualifiers: Qualified Code(s): A41.9 - Sepsis, unspecified organism SNOMED Code(s): 30867322 (2) Cellulitis of left leg Current Visit: Yes Status: Acute Location: Left lower extremity. Causative organism: Group B strep and Klebsiella pneumoniae. Etiology: Unclear. The patient is unaware of any trauma to the leg. She does report that [place] to her onset of symptoms, but denies any known insect or animal bites. Purulent. Failed outpatient oral antibiotics (doxycycline). CT of the left lower extremity 12/16/18 showed diffuse subcutaneous edema involving the imaged lower leg and foot. No subcutaneous gas or organized drainable fluid collection was identified. No acute osseous abnormality identified. No CT evidence for osteomyelitis. CK level was normal. Repeat CT of the left lower extremity 12/18/18 shows a shallow soft tissue ul ceration along the anterior aspect of the ankle with suspected 10 x 10 x 9 mm abscess or focal phlegmon is changed is superior to the area of the ulceration. Extensive subcutaneous edema and skin thickening consistent with cellulitis noted. No evidence of deep soft tissue infection, or acute bone or joint abnormality. Podiatry consulted. Status post I&D 12/19/[address] Jin. Intraoperative cul tures were obtained and are pending. Currently on vancomycin, cefepime, and Flagyl. SNOMED Code(s): 306802858 (3) Abscess Current Visit: Yes Status: Acute Location: Anterior aspect of the left ankle. Causative organism: Likely group B strep and gram-negative kandi based on wound cultures. Podiatry consult. Status post I&D 12/19/[address] Jin. Currently on cefepime, vancomycin, and Flagyl. SNOMED Code(s): 744317952 (4) COPD (chronic obstructive pulmonary disease) Current Visit: Yes Status: Chronic Qualifiers: Qualified Code(s): J44.9 - Chronic obstructive pulmonary disease, unspecified SNOMED Code(s): 77960734 (5) Diabetes Current Visit: Yes Status: Chronic Uncontrolled. Hemoglobin A1c 12.5%. Recommend aggressive glucose monitoring and control to promote wound healing and prevent reinfection. Management per the primary team. Qualifiers: Diabetes mellitus type: type 2 Diabetes mellitus longterm insulin use: without longterm use Diabetes mellitus complication status: without c omplication Qualified Code(s): E11.9 - Type 2 diabetes mellitus without c omplications SNOMED Code(s): 35780822 (6) Penicillin allergy Current Visit: Yes Status: Acute Reports anaphylactic reaction to penicillin when taken 30 years ago. SNOMED Code(s): 01304459 - Recommendations Recommendations: Await blood cultures to finalize. Await intraoperative cultures. Wound care per podiatry. Diabetes management per the primary team. Continue vancomycin IV. Pharmacy to dose. Goal trough approximately 15. Continue cefepime 2 g IV every 12 hours. Continue Flagyl 500 mg 3 times a day, but can switch to oral formulation. De-escalate antibiotics if/when intra-op cultures are available. Duration of treatment depends on the clinical picture. Monitor renal function for drug toxicity and dose adjust antibiotics. Consult Discharge Plan - Plan Referrals: Jaz Pascual CNP [Primary Care Provider] -
--- NOTE | 2018-12-20 12:35 | Podiatry Progress Note ---
Date of Encounter: 12/20/18 Time of Encounter: 12:27 - Assessment and Plan (1) Abscess Current Visit: Yes Status: Acute Assessment: S/P incision and drainage left foot and ankle multiple planes with Dr. Jin on 12/19/18 WBC 13.7 Wound culutres returned klebsiella and group b strep- ID following Anaerobic cultures and blood cultures pending ESR 65, CRP 239 Plan: Wound vac in place with retention sutures Vac at 125 mmHG with over 100 cc of serosanginous drainage in 24 hours Will change vac on tuesday Will need social service for home health vs ecf placement Will continue to monitor (2) Cellulitis of left leg Current Visit: Yes Status: Acute Assessment: Cellulitis LLE/foot, improvement since surgical intervention Plan: ID following for ATB management (3) Diabetes Current Visit: Yes Status: Chronic Assessment: Diabetes Mellitus II Plan: HGB A1C 12.5, recommend tight glycemic control, primary managing Qualifiers: Diabetes mellitus type: type 2 Diabetes 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 Jin on 12/19/18. Patient awake in bed. Alert and oriented x 3. Denies any overnight events. Reports improvement in pain since surgical intervention. Denies any fevers, chills, nausea, vomiting, or diarrhea. Denies any chest pain, calf pain, or shortness of breath. No other questions or concerns at this time. Objective - Vital Signs Vital Signs: Vital Signs Temp Pulse Resp BP Pulse Ox 12/20/18 11:26 16 96 12/20/18 10:54 98.5 F 62 16 94/56 96 12/20/18 04:40 97.7 F 67 16 146/77 97 12/20/18 00:26 98.1 F 97 16 104/56 97 12/19/18 20:43 18 95 12/19/18 19:35 98.2 F 79 16 119/76 95 12/19/18 18:11 98.6 F 68 18 91/45 92 12/19/18 16:50 98.6 F 68 16 112/70 95 12/19/18 15:50 98.6 F 81 16 116/61 95 12/19/18 15:20 98.5 F 79 16 128/52 93 12/19/18 14:50 98.1 F 67 18 169/84 95 12/19/18 14:12 97.3 F L 64 14 169/74 93 12/19/18 14:02 67 18 166/86 94 12/19/18 13:50 81 14 162/84 93 12/19/18 13:40 98.5 F 67 14 164/97 97 12/19/18 13:30 68 18 147/82 97 12/19/18 13:20 71 18 157/86 98 12/19/18 13:10 98.5 F 77 18 163/92 95 Intake and Output 12/19/18 12/20/18 12/20/18 23:59 07:59 15:59 Intake Total 510 / 980 1270 / 1630 360 / 1630 Output Total 300 / 2620 110 / 410 300 / 410 Balance 210 / -1640 1160 / 1220 60 / 1220 Intake: IV Fluids 270 / 740 1270 / 1270 0.9 % Sodium Chloride 1,000 ML 1000 / 1000 @ 100 mls/hr IVC .Q10H MIKAYLA Rx#: [id number] Maxipime 2,000 MG In Water for 20 / 20 inj. (sterile) 20 ML @ 300 mls/ hr IVPB Q12HR MIKAYLA Rx#: [id number] Vancocin 1,250 MG In 0.9 % 250 / 250 250 / 250 Sodium Chloride 250 ML @ 166.67 mls/hr IVPB Q12H MIKAYLA Rx#: [id number] Oral 240 / 240 360 / 360 Output: Urine 300 / 2100 0 / 300 300 / 300 Wound Drainage 110 / 110 Left Foot 110 / 110 Other: Meal Dinner Breakfast Percent of Meal Consumed 100% 100% Stool Size Copious Stool Consistency liquid Stool Color Brown # Voids 4 # Bowel Movements 0 1 Weight 104.1 kg Blood Glucose* [phone] Patient Weight 12/20/18 23:59 Weight 104.1 kg - Lab Result Diagrams: 12/20/18 02:15 12/20/18 02:15 Labs: Abnormal lab results WBC 13.7 K/mcL (4.3-11.1) H 12/20/18 02:15 RBC 3.51 M/mcL (3.82-4.97) L 12/20/18 02:15 Hgb 9.2 g/dL (11.5-15.4) L 12/20/18 02:15 Hct 29.9 % (35.3-44.9) L 12/20/18 02:15 MCV 82.4 fL (83.0-100.0) L 12/18/18 00:11 MCH 26.2 pg (28.0-33.3) L 12/20/18 02:15 MCHC 30.8 g/dL (31.6-35.5) L 12/20/18 02:15 MPV 9.1 fL (9.4-12.4) L 12/17/18 04:14 10.6 K/mcL (1.6-8.9) H 12/20/18 02:15 1.6 K/mcL (0.0-1.3) H 12/17/18 04:14 Present (Not Present) A 12/19/18 04:38 ESR 65 mm/hr (0-15) H 12/18/18 00:11 Sodium 135 mEq/L (136-145) L 12/20/18 02:15 Carbon Dioxide 21 mEq/L (23-29) L 12/16/18 13:00 BUN 21 mg/dL (6-20) H 12/18/18 00:11 Est GFR (Non-Af Amer) 54 (> 60) L 12/19/18 21:43 Glucose 286 mg/dL (70-105) H 12/20/18 02:15 POC Glucose 253 mg/dL (70-99) H 12/20/18 04:36 12.5 % (-5.6) H 12/16/18 13:25 Calcium 8.4 mg/dL (8.6-10.3) L 12/20/18 02:15 Magnesium 1.4 mg/dL (1.6-2.6) L 12/17/18 04:14 14 Units/L (30-223) L 12/16/18 13:00 259 mg/L (Less than 10) H 12/18/18 00:11 Vancomycin Trough 19 mcg/mL (5-10) H 12/20/18 02:15 Microbiology, Last 48 Hours 12/19/18 12:25 Wound Culture - Preliminary Left Foot Culture is incubating. 12/19/18 12:25 Anaerobic Culture - Preliminary Left Foot Culture is incubating. 12/16/18 16:45 Wound Culture - Final Left Foot Klebsiella pneu.ssp pneumoniae Strep agalactiae - (Group B) Consult Discharge Plan - Plan Referrals: Jaz Pascual, BUILDING TECH [Primary Care Provider] -
--- NOTE | 2018-12-20 15:48 | Internal Med Progress Note ---
Hospitalist Progress Note - Encounter Date of Encounter: 12/20/18 Time of Encounter: 15:43 - Subjective Interval History: Evaluated patient earlier today. Underwent surgery yesterday and has been doing well. Denies any fevers or chills. No nausea or vomiting. Pain in her left lower extremities well controlled. - Exam Vitals: Temp Pulse Resp BP Pulse Ox 98.1 F 68 16 109/69 96 12/20/18 14:23 12/20/18 14:23 12/20/18 14:23 12/20/18 14:23 12/20/18 14:23 Exam: General: Patient is alert, no acute distress, oriented x 3 ENT: Mucous membranes moist Respiratory: Good respiratory effort. Normal breath sounds. No wheezing or crackles. Cardiovascular: Regular rate and rhythm. s1 and s2 normal No clicks, rubs, gallops, or murmurs. No pedal edema Abdomen: Abdomen is soft, nontender. Bowel sounds are present Musculoskeletal: Spontaneously moving all extremities, left foot bandage and wound VAC in place. Skin: warm, dry, intact. Neuro: Alert oriented x 3 normal cranial nerves, no focal deficits - Assessment and Plan (1) Cellulitis of left leg Current Visit: Yes Status: Acute Assessment and Plan: Cellulitis with abscess of the left foot and ankle. S/p I&D yesterday. Doing well postprocedure. No new episodes of fevers or chills. Continue current antibiotics. We will follow intraoperative culture results. Moderate risk for complications. (2) Sepsis Current Visit: Yes Status: Acute Assessment and Plan: Wound cultures from initial sample growing Klebsiella and strep agalactiae. Patient is currently on vancomycin and cefepime. Infectious disease following. (3) COPD (chronic obstructive pulmonary disease) Current Visit: Yes Status: Chronic Assessment and Plan: Not in acute exacerbation. Continue bronchodilators as needed (4) Diabetes Current Visit: Yes Status: Chronic Assessment and Plan: Remains uncontrolled. Will increase Levemir dosage. (5) Hyponatremia Current Visit: Yes Status: Resolved (6) DVT prophylaxis Current Visit: Yes Status: Acute Assessment and Plan: Continue subcutaneous heparin - Time Spent with Patient Total time spent is greater than 50% in coordination of care (as documented) at patient's floor/unit and/or counseling patient: Internal Medicine: Result - Labs CBC & Chem 7: 12/20/18 02:15 12/20/18 02:15 Labs: Short CBC 12/20/18 Range/Units 02:15 WBC 13.7 H (4.3-11.1) K/mcL Hgb 9.2 L (11.5-15.4) g/dL Hct 29.9 L (35.3-44.9) % Plt Count 310 (140-400) K/mcL Neutrophils # 10.6 H (1.6-8.9) K/mcL BMP 12/19/18 12/20/18 21:43 02:15 Sodium 130 L D 135 L Potassium 4.9 4.5 Chloride 100 105 Carbon Dioxide 24 25 BUN 20 19 Creatinine 1.07 0.85 Glucose 574 H* 286 H Calcium 8.3 L 8.4 L Consult Discharge Plan - Plan Referrals: Jaz Pascual, KELLY [Primary Care Provider] - (2) Sepsis Qualifiers: Qualified Code(s): A41.9 - Sepsis, unspecified organism (3) COPD (chronic obstructive pulmonary disease) Qualifiers: Qualified Code(s): J44.9 - Chronic obstructive pulmonary disease, unspecified (4) Diabetes Qualifiers: Diabetes mellitus type: type 2 Diabetes mellitus bridge instructor insulin use: without intermediate use Diabetes mellitus complication status: without complication Qualified Code(s): E11.9 - Type 2 diabetes mellitus without complications
[2018-12-20] MEDS: Insulin DETEMIR 100 UNIT/ML X5UNITS SQ SCH ×2 (17:13→21:10)
[2018-12-20] MEDS ORDERED: Insulin LISPRO 300 UNITS/3 ML VIAL SQ ONE (21:22)
[2018-12-21] MEDS: *HR* OxyCODONE/APAP 5/325 TABLET PO PRN ×3 (02:43→16:17)
[2018-12-21 04:46] LABS: Basophils % 0.3 %; Eosinophils # 0.3 K/mcL (0.0-0.6); Eosinophils % 3.6 %; Hematocrit 30.1 % (35.3-44.9); Hemoglobin 9.1 g/dL (11.5-15.4); Immature Granulocytes % 1.3 % (0-4); Lymphocytes # 3.3 K/mcL (0.6-4.6); Mean Corpuscular HGB Conc 30.2 g/dL (31.6-35.5); Mean Platelet Volume 9.6 fL (9.4-12.4); Monocytes # 0.5 K/mcL (0.0-1.3); Monocytes % 5.9 %; Neutrophils # 4.4 K/mcL (1.6-8.9); Platelet Count 332 K/mcL (140-400); Red Cell Distribution Width 13.6 % (11.5-14.5); Segmented Neutrophils % 50.9 %; White Blood Count 8.6 K/mcL (4.3-11.1)
[2018-12-21 05:02] LABS: BUN/Creatinine Ratio 17 (6-26); Blood Urea Nitrogen 14 mg/dL (6-20); Calcium 8.2 mg/dL (8.6-10.3); Carbon Dioxide 27 mEq/L (23-29); Chloride 108 mEq/L (98-107); Glucose 229 mg/dL (70-105); Osmolality,Calculated 294 (280-300); Potassium 4.6 mEq/L (3.5-5.1); Sodium 138 mEq/L (136-145); eGFR For African Americans > 60 (> 60); eGFR For Non-African Americans > 60 (> 60)
[2018-12-21] MEDS: *HR* HYDROcodone/Acet 5/325 mg TABLET PO PRN ×3 (05:05→20:35)
[2018-12-21] MEDS: Cefepime HCl 2,000 MG in Water for inj. (sterile) 20 ML IVPB SCH (05:06)
[2018-12-21] MEDS: *HR* Heparin 5,000 UNIT/ML VIAL SQ SCH ×2 (05:06→18:21)
[2018-12-21 06:07] LABS: Platelet Estimate Normal (Normal); Reactive Lymphocytes Present (Not Present)
[2018-12-21] MEDS: Budesonide/Formoterol 160/4.5 1 PUFF INH IH SCH ×2 (07:31→23:12)
[2018-12-21] MEDS: Nicotine 21 MG PATCH.TD24 TD SCH (09:59)
[2018-12-21] MEDS: Cholecalciferol (D-3) 1,000 UNIT (25MCG) TABLET PO SCH (09:59)
[2018-12-21] MEDS: Famotidine 20 MG TABLET PO SCH (09:59)
[2018-12-21] MEDS: metroNIDAZOLE 500 MG TABLET PO SCH ×3 (10:00→16:17)
[2018-12-21] MEDS: Lisinopril 20 MG TABLET PO SCH (10:00)
[2018-12-21] MEDS: tiZANidine 4 MG TABLET PO SCH ×3 (10:00→20:30)
[2018-12-21] MEDS: Gabapentin 400 MG CAPSULE PO SCH ×3 (10:00→20:30)
[2018-12-21] MEDS: Insulin DETEMIR 100 UNIT/ML X5UNITS SQ SCH ×2 (10:00→20:37)
[2018-12-21] MEDS: BuPROPion XL (24 HR) 150 MG TABLET PO SCH (10:00)
[2018-12-21] MEDS: Insulin LISPRO 300 UNITS/3 ML VIAL SQ SCH ×4 (10:01→20:37)
--- NOTE | 2018-12-21 10:53 | Infectious Disease Progress No ---
ID Progress Note Date of Encounter: 12/21/18 Time of Encounter: 10:30 (.) - Subjective Subjective: Patient seen and examined. No acute events noted overnight. Postop day 2 from I&D of the left ankle. States overall she feels well. Denies fevers, chills, rigors. Denies chest pain, shortness of breath, or cough. RDenies nausea, vomiting, diarrhea, or constipation. Reports two loose stools per day. Denies abdominal pain or urinary complaints. Reports mild pain at the surgical site. Denies oral thrush or skin rashes. - Objective CBC & Chem 7: 12/21/18 03:12 12/21/18 03:12 - Exam Vitals: Temp Pulse Resp BP Pulse Ox 98.9 F 66 14 145/79 97 12/21/18 06:37 12/21/18 06:37 12/21/18 07:31 12/21/18 06:37 12/21/18 07:31 Exam: Head: Atraumatic, normal inspection, normocephalic. Eye: EOMI, PERRLA, no scleral icterus noted. ENT: Mucous membranes moist. No odontogenic infection noted. Neck: Normal inspection, no meningismus. Respiratory: Clear to auscultation. No rales, respiratory distress, rhonchi, or wheezes noted. Cardiovascular: Regular rate and rhythm, S1 and S2 audible. No murmurs, rubs, or gallops. GI: Soft, nondistended, normal bowel sounds. Extremities:No joint swelling, pedal edema, or tenderness noted. Left foot and ankle dressing clean, dry, and intact. Erythema extending above the dressing resolved. Wound VAC noted with serosanguinous drainage noted in the canister. No leak. Back: Normal inspection. No vertebral tenderness noted. Neurological: Alert, oriented 3, no focal deficits. Psychiatric: normal affect, normal mood. Skin: Dry, intact, warm. Normal color. No rashes. - Assessment and Plan (1) Sepsis Current Visit: Yes Status: Acute The patient had 2 sepsis criteria on admission. Likely secondary to left lower extremity cellulitis and abscess. White blood cell count normal. Afebrile overnight. Tachycardia resolved. Blood cultures drawn 12/16/18 are no growth to date 2 sets. Qualifiers: Qualified Code(s): A41.9 - Sepsis, unspecified organism SNOMED Code(s): 26276239 (2) Cellulitis of left leg Current Visit: Yes Status: Acute Location: Left lower extremity. Causative organism: Group B strep and Klebsiella pneumoniae. Etiology: Unclear. The patient is unaware of any trauma to the leg. She does report that [place] to her onset of symptoms, but denies any known insect or animal bites. Purulent. Failed outpatient oral antibiotics (doxycycline). CT of the left lower extremity 12/16/18 showed diffuse subcutaneous edema involving the imaged lower leg and foot. No subcutaneous gas or organized drainable fluid collection was identified. No acute osseous abnormality identified. No CT evidence for osteomyelitis. CK level was normal. Repeat CT of the left lower extremity 12/18/18 shows a shallow soft tissue ulceration along the anterior aspect of the ankle with suspected 10 x 10 x 9 mm abscess or focal phlegmon is changed is superior to the area of the ulceration. Extensive subcutaneous edema and skin thickening consistent with cellulitis noted. No evidence of deep soft tissue infection, or acute bone or joint abnormality. Podiatry consulted. Status post I&D 12/19/[address] Jin. Intraoperative cultures were obtained and are no growth. Clinically improved. Currently on vancomycin, cefepime, and Flagyl. SNOMED Code(s): 813793087 (3) Abscess Current Visit: Yes Status: Acute Location: Anterior aspect of the left ankle. Causative organism: Likely group B strep and K. pneumoniae. Podiatry consult. Status post I&D 12/19/[address] Jin. Currently on cefepime, vancomycin, and Flagyl. SNOMED Code(s): 114616232 (4) COPD (chronic obstructive pulmonary disease) Current Visit: Yes Status: Chronic Qualifiers: Qualified Code(s): J44.9 - Chronic obstructive pulmonary disease, unspecified SNOMED Code(s): 97114157 (5) Diabetes Current Visit: Yes Status: Chronic Uncontrolled. Hemoglobin A1c 12.5%. Recommend aggressive glucose monitoring and control to promote wound healing and prevent reinfection. Management per the primary team. Qualifiers: Diabetes mellitus type: type 2 Diabetes mellitus assisted insulin use: without assisted use Diabetes mellitus complication status: without complication Qualified Code(s): E11.9 - Type 2 diabetes mellitus without complications SNOMED Code(s): 40050726 (6) Penicillin allergy Current Visit: Yes Status: Acute Reports anaphylactic reaction to penicillin when taken 30 years ago. SNOMED Code(s): 53671160 - Recommendations Recommendations: Await blood cultures to finalize. Await intraoperative cultures. Wound care per podiatry. Diabetes management per the primary team. Discontinue Vanc and Cefepime. Start Rocephin 2 grams IV daily. Continue Flagyl 500 mg 3 times a day PO. De-escalate antibiotics if/when intra-op cultures are available. Duration of treatment depends on the clinical picture. Will discuss with Podiatry, but will likely need 2-4 weeks of IV antibiotics based on the extent of the infection. Monitor renal function for drug toxicity and dose adjust antibiotics. services manager to assist with discharge planning. Recommend rehab placement on discharge. Consult Discharge Plan - Plan Referrals: Jaz Pascual, KELLY [Primary Care Provider] - - Attending Attestation I have personally performed a face to face evaluation on this patient. I have reviewed and agree with the care plan. History and Exam by me shows: Assessment and plan: 1.Left foot abscess noted on the CT scan. Causative organism group B streptococcus and klebsiella pneumoniae 2.sepsis 3.COPD 4.DM 2 5.PCN allergies Concern for IV drug use Recommendations DC vancomycin DC cefepime Continue Flagyl Start Rocephin 2 g IV every 24 hours Follow-up on cultures to finalize Duration of treatment depends on the clinical picture Might need to check hepatitis profile and HIV
[2018-12-21] MEDS: cefTRIAXone 2,000 MG in Water for inj. (sterile) 20 ML IVP SCH (12:38)
--- NOTE | 2018-12-21 12:53 | Internal Med Progress Note ---
Hospitalist Progress Note - Encounter Date of Encounter: 12/21/18 Time of Encounter: 12:49 - Subjective Interval History: Evaluated patient earlier today. She complains of pain in her left foot at surgical site. No fever or chills reported overnight. No nausea or vomiting. She did have some loose stools yesterday. Tolerating oral diet well. - Exam Vitals: Temp Pulse Resp BP Pulse Ox 98.4 F 62 15 137/72 95 12/21/18 11:04 12/21/18 11:04 12/21/18 11:04 12/21/18 11:04 12/21/18 11:04 Exam: General: Patient is alert, no acute distress, oriented x 3 ENT: Mucous membranes moist Respiratory: Mild end expiratory wheezing. Cardiovascular: Regular rate and rhythm. s1 and s2 normal No clicks, rubs, gallops, or murmurs. No pedal edema Abdomen: Abdomen is soft, nontender. Bowel sounds are present Musculoskeletal: Spontaneously moving all extremities , left foot bandaged. Tender to palpation. Wound VAC in place. Skin: warm, dry, intact. Neuro: Alert oriented x 3 normal cranial nerves, no focal deficits - Assessment and Plan (1) Cellulitis of left leg Current Visit: Yes Status: Acute Assessment and Plan: Cellulitis with abscess involving the left ankle and foot. Status post incision and drainage. Continue current antibiotics. Discussed with infectious disease. At this point given the extent of infection, they recommend intravenous ant ibiotics for about 4 weeks. Patient has been switched over to Rocephin per culture results. Intraoperative wound cultures show no growth so far. Podiatry following. (2) Sepsis Current Visit: Yes Status: Acute Assessment and Plan: Due to cellulitis involving the left lower extremity. Improving. Blood cultures remain negative (3) COPD (chronic obstructive pulmonary disease) Current Visit: Yes Status: Chronic Assessment and Plan: Not in acute exacerbation. Continue bronchodilators as needed (4) Diabetes Current Visit: Yes Status: Chronic Assessment and Plan: Blood sugars elevated today. We will increase insulin regimen further (5) Hyponatremia Current Visit: Yes Status: Resolved (6) DVT prophylaxis Current Visit: Yes Status: Acute Assessment and Plan: Continue subcutaneous heparin - Time Spent with Patient Total time spent is greater than 50% in coordination of care (as documented) at patient's floor/unit and/or counseling patient: Internal Medicine: Result - Labs CBC & Chem 7: 12/21/18 03:12 12/21/18 03:12 Labs: Short CBC 12/21/18 Range/Units 03:12 WBC 8.6 (4.3-11.1) K/mcL Hgb 9.1 L (11.5-15.4) g/dL Hct 30.1 L (35.3-44.9) % Plt Count 332 (140-400) K/mcL Neutrophils # 4.4 (1.6-8.9) K/mcL BMP 12/21/18 03:12 Sodium 138 Potassium 4.6 Chloride 108 H Carbon Dioxide 27 BUN 14 Creatinine 0.83 Glucose 229 H Calcium 8.2 L Consult Discharge Plan - Plan Referrals: Jaz Pascual, KELLY [Primary Care Provider] - (2) Sepsis Qualifiers: Qualified Code(s): A41.9 - Sepsis, unspecified organism (3) COPD (chronic obstructive pulmonary disease) Qualifiers: Qualified Code(s): J44.9 - Chronic obstructive pulmonary disease, unspecified (4) Diabetes Qualifiers: Diabetes mellitus type: type 2 Diabetes mellitus intermediate insulin use: without entry level assistant manager use Diabetes mellitus complication status: without complication Qualified Code(s): E11.9 - Type 2 diabetes mellitus without complications
--- NOTE | 2018-12-21 13:52 | Podiatry Progress Note ---
Date of Encounter: 12/21/18 Time of Encounter: 13:49 - Assessment and Plan (1) Abscess Current Visit: Yes Status: Acute Assessment: S/P incision and drainage left foot and ankle multiple planes with Dr. Jin on 12/19/18 Erythema to foot and anterior lower extremity noted, minimal improvement from yesterday WBC 8.6, improving Wound culutres returned klebsiella and group b strep- ID following Surgical culturs returned no growth Anaerobic cultures and blood cultures pending ESR 65, CRP 239 Plan: Wound vac in place with retention sutures, tissue friable, patient at risk for further surgical intervention Vac at 125 mmHG with over 100 cc of serosanginous drainage in 24 hours Will change vac on tuesday Will need social service for home health vs ecf placement Will continue to monitor (2) Cellulitis of left leg Current Visit: Yes Status: Acute Assessment: Cellulitis LLE/foot, minimal improvement from yesterday Plan: ID following for ATB management (3) Diabetes Current Visit: Yes Status: Chronic Assessment: Diabetes Mellitus II Plan: HGB A1C 12.5, recommend tight glycemic control, primary managing Qualifiers: Diabetes mellitus type: type 2 Diabetes mellitus residential insulin use: without roasterman use Diabetes mellitus complication status: without complication Qualified Code(s): E11.9 - Type 2 diabetes mellitus without complications Subjective Interval history: S/P incision and drainage with Dr. Jin on 12/19/18. Patient awake in bed. Alert and oriented x 3. Denies any overnight events. Reports improvement in pain since surgical intervention. Denies any fevers, chills, nausea, or vomiting. Reports diarrhea. Denies any chest pain, calf pain, or shortness of breath. No other questions or concerns at this time. Objective - Vital Signs Vital Signs: Vital Signs Temp Pulse Resp BP Pulse Ox 12/21/18 11:04 98.4 F 62 15 137/72 95 12/21/18 07:31 14 97 12/21/18 06:37 98.9 F 66 16 145/79 90 12/21/18 03:02 98.3 F 61 16 105/66 94 12/20/18 22:13 98.5 F 59 16 107/72 97 12/20/18 20:48 19 99 12/20/18 18:54 98.6 F 66 16 97/61 97 12/20/18 14:23 98.1 F 68 16 109/69 96 Intake and Output 12/20/18 12/21/18 12/21/18 23:59 07:59 15:59 Intake Total 270 / 2140 720 / 1320 600 / 1320 Output Total 800 / 1510 1700 / 2400 700 / 2400 Balance -530 / 630 -980 / -1080 -100 / -1080 Intake: IV Fluids 270 / 1540 20 / 20 Maxipime 2,000 MG In Water for 20 / 20 inj. (sterile) 20 ML @ 300 mls/ hr IVPB Q12HR [facility] Rx#: [id number] Vancocin 1,250 MG In 0.9 % 250 / 500 Sodium Chloride 250 ML @ 166.67 mls/hr IVPB Q12H [facility] Rx#: [id number] Oral 0 / 600 700 / 1300 600 / 1300 Output: Urine 200 / 800 800 / 800 Urine/Stool Mix 600 / 600 900 / 1600 700 / 1600 Other: Meal Lunch Percent of Meal Consumed 100% Stool Size Moderate Stool Consistency liquid liquid Stool Color Brown Brown # Voids 4 # Bowel Movements 1 Weight 105.3 kg Blood Glucose* 242 310 Patient Weight 12/21/18 23:59 Weight 105.3 kg - Exam Exam: Constitiutional: Alert and oriented x 3. Well nourished. No acute distress noted Vascular: 1/4 DP/PT LLE, CFT <3 sec to all digits LLE, warm to warm from tibia to toes LLE, erythema noted to anterior lower extremity and left foot, minimal edema noted, erythema does not extend past demarcation line, minimal improvement from yesterday Neurologic: Sensation to touch, normal plantar response Dermatologic: Erythema and 1/4 edema noted to LLE, wound vac in place, draining serosanginous drainage. Musculoskeletal: 4/5 muscle strength and normal tone LLE. - Lab Result Diagrams: 12/21/18 03:12 12/21/18 03:12 Labs: Abnormal lab results WBC 13.7 K/mcL (4.3-11.1) H 12/20/18 02:15 RBC 3.50 M/mcL (3.82-4.97) L 12/21/18 03:12 Hgb 9.1 g/dL (11.5-15.4) L 12/21/18 03:12 Hct 30.1 % (35.3-44.9) L 12/21/18 03:12 MCV 82.4 fL (83.0-100.0) L 12/18/18 00:11 MCH 26.0 pg (28.0-33.3) L 12/21/18 03:12 MCHC 30.2 g/dL (31.6-35.5) L 12/21/18 03:12 MPV 9.1 fL (9.4-12.4) L 12/17/18 04:14 10.6 K/mcL (1.6-8.9) H 12/20/18 02:15 1.6 K/mcL (0.0-1.3) H 12/17/18 04:14 Present (Not Present) A 12/21/18 03:12 ESR 65 mm/hr (0-15) H 12/18/18 00:11 Sodium 135 mEq/L (136-145) L 12/20/18 02:15 Chloride 108 mEq/L (98-107) H 12/21/18 03:12 Carbon Dioxide 21 mEq/L (23-29) L 12/16/18 13:00 BUN 21 mg/dL (6-20) H 12/18/18 00:11 Est GFR (Non-Af Amer) 54 (> 60) L 12/19/18 21:43 Glucose 229 mg/dL (70-105) H 12/21/18 03:12 POC Glucose 242 mg/dL (70-99) H 12/20/18 18:54 12.5 % (-5.6) H 12/16/18 13:25 Calcium 8.2 mg/dL (8.6-10.3) L 12/21/18 03:12 Magnesium 1.4 mg/dL (1.6-2.6) L 12/17/18 04:14 14 Units/L (30-223) L 12/16/18 13:00 259 mg/L (Less than 10) H 12/18/18 00:11 Vancomycin Trough 19 mcg/mL (5-10) H 12/20/18 02:15 Microbiology, Last 48 Hours 12/19/18 12:25 Wound Culture - Preliminary Left Foot No pathogens isolated. 12/19/18 12:25 Anaerobic Culture - Preliminary Left Foot Culture is incubating. Consult Discharge Plan - Plan Referrals: Jaz Pascual, KELLY [Primary Care Provider] -
[2018-12-21] MEDS: Insulin DETEMIR 100 UNIT/ML X5UNITS SQ ONE (14:00)
[2018-12-21] MEDS: 0.9 % Sodium Chloride 1,000 ML IVC SCH (18:40)
[2018-12-21] MEDS: Lactobacillus 1 EACH CAP.SPRINK PO SCH (20:30)
[2018-12-22] MEDS: *HR* OxyCODONE/APAP 5/325 TABLET PO PRN ×4 (01:21→21:34)
[2018-12-22] MEDS: *HR* Promethazine 25 MG/ML VIAL IVP PRN (02:29)
[2018-12-22] MEDS: *HR* HYDROcodone/Acet 5/325 mg TABLET PO PRN ×3 (04:32→18:38)
[2018-12-22] MEDS: *HR* Heparin 5,000 UNIT/ML VIAL SQ SCH ×2 (06:40→18:39)
[2018-12-22] MEDS: Budesonide/Formoterol 160/4.5 1 PUFF INH IH SCH ×2 (07:43→20:12)
[2018-12-22] MEDS ORDERED: Insulin DETEMIR 100 UNIT/ML X5UNITS SQ SCH (09:00)
[2018-12-22] MEDS: Lactobacillus 1 EACH CAP.SPRINK PO SCH ×2 (09:12→20:32)
[2018-12-22] MEDS: Cholecalciferol (D-3) 1,000 UNIT (25MCG) TABLET PO SCH (09:12)
[2018-12-22] MEDS: metroNIDAZOLE 500 MG TABLET PO SCH ×3 (09:12→18:38)
[2018-12-22] MEDS: Nicotine 21 MG PATCH.TD24 TD SCH (09:12)
[2018-12-22] MEDS: BuPROPion XL (24 HR) 150 MG TABLET PO SCH (09:12)
[2018-12-22] MEDS: Gabapentin 400 MG CAPSULE PO SCH ×3 (09:13→20:32)
[2018-12-22] MEDS: Lisinopril 20 MG TABLET PO SCH (09:13)
[2018-12-22] MEDS: Insulin LISPRO 300 UNITS/3 ML VIAL SQ SCH ×4 (09:13→20:40)
[2018-12-22] MEDS: tiZANidine 4 MG TABLET PO SCH ×3 (09:13→20:32)
[2018-12-22] MEDS: Famotidine 20 MG TABLET PO SCH (09:13)
--- NOTE | 2018-12-22 11:53 | Infectious Disease Progress No ---
ID Progress Note Date of Encounter: 12/22/18 Time of Encounter: 11:15 - Subjective Subjective: Patient seen and examined with Podiatry. No acute events noted overnight. Postop day 3 from I&D of the left ankle. States overall she feels well. Denies fevers, chills, rigors. Denies chest pain, shortness of breath, or cough. Denies vomiting, diarrhea, or constipation. Reports some mild intermittent nausea. Reports two loose stools per day. Denies abdominal pain or urinary com plaints. Reports mild pain at the surgical site. Denies oral thrush or skin rashes. - Objective CBC & Chem 7: 12/25/18 06:07 12/25/18 06:07 - Exam Vitals: Temp Pulse Resp BP Pulse Ox 98.0 F 67 18 174/84 95 12/22/18 08:10 12/22/18 08:10 12/22/18 08:10 12/22/18 08:10 12/22/18 08:10 Exam: Head: Atraumatic, normal inspection, normocephalic. Eye: EOMI, PERRLA, no scleral icterus noted. ENT: Mucous membranes moist. No odontogenic infection noted. Neck: Normal inspection, no meningismus. Respiratory: Clear to auscultation. No rales, respiratory distress, rhonchi, or wheezes noted. Cardiovascular: Regular rate and rhythm, S1 and S2 audible. No murmurs, rubs, or gallops. GI: Soft, nondistended, normal bowel sounds. Extremities:No joint swelling, pedal edema, or tenderness noted. Left foot and ankle surgical site with surrounding erythema noted. Wound bed is pink and poist with serosanguinous drainage. No necrosis or foul odor noted. No streaking up th e leg. Edema improved. Back: Normal inspection. No vertebral tenderness noted. Neurological: Alert, oriented 3, no focal deficits. Psychiatric: normal affect, normal mood. Skin: Dry, intact, warm. Normal color. No rashes. - Assessment and Plan (1) Sepsis Current Visit: Yes Status: Resolved The patient had 2 sepsis criteria on admission. Likely secondary to left lower extremity cellulitis and abscess. White blood cell count normal. Afebrile overnight. Tachycardia resolved. Blood cultures drawn 12/16/18 are no growth to date 2 sets. Qualifiers: Qualified Code(s): A41.9 - Sepsis, unspecified organism SNOMED Code(s): 81174438 (2) Cellulitis of left leg Current Visit: Yes Status: Acute Location: Left lower extremity. Causative organism: Group B strep and Klebsiella pneumoniae. Etiology: Unclear. The patient is unaware of any trauma to the leg. She does report that [place] to her onset of symptoms, but denies any known insect or animal bites. Purulent. Failed outpatient oral antibiotics (doxycycline). CT of the left lower extremity 12/16/18 showed diffuse subcutaneous edema involving the imaged lower leg and foot. No subcutaneous gas or organized drainable fluid collection was identified. No acute osseous abnormality identified. No CT evidence for osteomyelitis. CK level was normal. Repeat CT of the left lower extremity 12/18/18 shows a shallow soft tissue ulceration along the anterior aspect of the ankle with suspected 10 x 10 x 9 mm abscess or focal phlegmon is changed is superior to the area of the ulceration. Extensive subcutaneous edema and skin thickening consistent with cellulitis noted. No evidence of deep soft tissue infection, or acute bone or joint abnormality. Podiatry consulted. Status post I&D 12/19/[address] Jin. Intraoperative cultures were obtained and are no growth. Clinically improved. Currently on Rocephin and Flagyl. SNOMED Code(s): 380855982 (3) Abscess Current Visit: Yes Status: Acute Location: Anterior aspect of the left ankle. Causative organism: Likely group B strep and K. pneumoniae. Podiatry consult. Status post I&D 12/19/[address] Jin. Currently on Rocephin and Flagyl. SNOMED Code(s): 479569727 (4) COPD (chronic obstructive pulmonary disease) Current Visit: Yes Status: Chronic Qualifiers: Qualified Code(s): J44.9 - Chronic obstructive pulmonary disease, unspecified SNOMED Code(s): 87443987 (5) Diabetes Current Visit: Yes Status: Chronic Uncontrolled. Hemoglobin A1c 12.5%. Recommend aggressive glucose monitoring and control to promote wound healing and prevent reinfection. Management per the primary team. Qualifiers: Diabetes mellitus type: type 2 Diabetes mellitus exterminator helper insulin use: without exterminator helper use Diabetes mellitus complication status: without c omplication Qualified Code(s): E11.9 - Type 2 diabetes mellitus without c omplications SNOMED Code(s): 70741396 (6) Penicillin allergy Current Visit: Yes Status: Acute Reports anaphylactic reaction to penicillin when taken 30 years ago. SNOMED Code(s): 37381560 - Recommendations Recommendations: Await blood cultures to finalize. Check HIV and hepatitis B and C serologies. Wound care per podiatry. Diabetes management per the primary team. Continue Rocephin 2 grams IV daily. Continue Flagyl 500 mg 3 times a day PO. Duration of treatment depends on the clinical picture. Will discuss with Podiatry, but will likely need 2-4 weeks of IV antibiotics based on the extent of the infection. Will plan to follow how the patient does clinically and her inflammatory markers and decide from there. Monitor renal function for drug toxicity and dose adjust antibiotics. ancillary services manager to assist with discharge planning. Recommend rehab placement on discharge. Consult VAT for midline placement prior to discharge. Will need weekly CBC, BUN/Cr, ESR, and CRP. Will need weekly IV care per protocol. Follow up with ID 01/10/19 at 1345. Consult Discharge Plan - Plan Referrals: Jaz Pascual CNP [Primary Care Provider] - Sarah lAmazan CNP [Advanced Practice Nurse] - 01/10/19 1:45 pm Prescriptions: cefTRIAXone [Rocephin] 2,000 mg IVPB DAILY #28 vial - Attending Attestation I have personally performed a face to face evaluation on this patient. I have reviewed and agree with the care plan. History and Exam by me shows: Assessment and plan: 1.Left foot abscess noted on the CT scan. Causative organism group B streptococcus and klebsiella pneumoniae 2.sepsis 3.COPD 4.DM 2 5.PCN allergies 6.Concern for IV drug use Recommendations: Await blood cultures to finalize. Check HIV and hepatitis B and C serologies. Wound care per podiatry. Diabetes management per the primary team. Continue Rocephin 2 grams IV daily. Continue Flagyl 500 mg 3 times a day PO.
--- NOTE | 2018-12-22 12:19 | Podiatry Progress Note ---
Date of Encounter: 12/22/18 Time of Encounter: 11:30 - Assessment and Plan (1) Abscess Current Visit: Yes Status: Acute Assessment: S/P incision and drainage left foot and ankle multiple planes with Dr. Jin on 12/19/18 Erythema to foot and anterior lower extremity noted, moderate improvement from yesterday WBC 8.6, no labs today Wound culutres returned klebsiella and group b strep- ID following Surgical cultures returned no growth Anaerobic cultures and blood cultures pending ESR 65, CRP 239 Plan: Cleansed with 0.9 NS, and 4x4 dry gauze, wound measuring 20 x 4 x 0.3 cm Skin and macerated tissue were prepped with Alkare Attempted wound vac placement but due to drainage was unable to place. Calcium alginate, 4x4 dry gauze, and kerlix placed to left foot. Secured with medipore. Will place wound care orders. Will re-attempt vac placement on Tuesday Will need social service for home health vs ecf placement Will continue to monitor (2) Cellulitis of left leg Current Visit: Yes Status: Acute Assessment: Cellulitis LLE/foot, improvement from yesterday Plan: ID following for ATB management (3) Diabetes Current Visit: Yes Status: Chronic Assessment: Diabetes Mellitus II Plan: HGB A1C 12.5, recommend tight glycemic control, primary managing Qualifiers: Diabetes mellitus type: type 2 Diabetes mellitus terminal worker insulin use: without terminal worker use Diabetes mellitus complication status: without complication Qualified Code(s): E11.9 - Type 2 diabetes mellitus without complications Subjective Interval history: S/P incision and drainage with Dr. Jin on 12/19/18. Patient awake in bed. Alert and oriented x 3. Denies any overnight events. Denies any fevers, chills, nausea, or vomiting. Reports diarrhea. Denies any chest pain, calf pain, or jessica rtness of breath. No other questions or concerns at this time. Objective - Vital Signs Vital Signs: Vital Signs Temp Pulse Resp BP Pulse Ox 12/22/18 11:52 98.6 F 66 16 121/78 96 12/22/18 08:10 98.0 F 67 18 174/84 95 12/22/18 07:43 18 96 12/22/18 07:04 97.9 F 64 17 167/77 96 12/22/18 04:55 98.4 F 68 16 157/92 93 12/22/18 00:06 98.1 F 66 16 169/79 93 12/21/18 20:39 96 12/21/18 20:23 98.6 F 66 16 146/79 96 12/21/18 13:55 99.7 F H 69 16 136/62 97 Intake and Output 12/21/18 12/22/18 12/22/18 23:59 07:59 15:59 Intake Total 570 / 1890 240 / 240 Output Total 100 / 3150 Balance 470 / -1260 240 / 240 Intake: IV Fluids 270 / 290 Rocephin 2,000 MG In Water for inj. (sterile) 20 ML @ 600 mls/ hr IVP Q24H MIKAYLA Rx#:[id number] Vancocin 1,250 MG In 0.9 % 250 / 250 Sodium Chloride 250 ML @ 166.67 mls/hr IVPB Q12H MIKAYLA Rx#: [id number] Oral 300 / 1600 240 / 240 Output: Urine 0 / 1250 Wound Drainage 100 / 300 Left Foot 100 / 300 Other: Meal Breakfast Percent of Meal Consumed 100% # Voids 3 2 # Bowel Movements 0 0 Weight 104.6 kg Blood Glucose* 174 221 Patient Weight 12/22/18 23:59 Weight 104.6 kg - Exam Exam: Constitiutional: Alert and oriented x 3. Well nourished. No acute distress noted Vascular: 2/4 DP/PT LLE, CFT <3 sec to all digits LLE, warm to warm from tibia to toes LLE, erythema noted to anterior lower extremity and left foot, minimal edema noted, improvement from yesterday Neurologic: Sensation to touch, normal plantar response Dermatologic: Erythema and 1/4 edema noted to LLE, necrosis of medial midfoot periwound, wound bed with 75% granulation tissue and 25% slough, pain upon palpation, moderate amount of serosangionous drainage noted. Musculoskeletal: 4/5 muscle strength and normal tone LLE. - Lab Result Diagrams: 12/21/18 03:12 12/21/18 03:12 Labs: Abnormal lab results WBC 13.7 K/mcL (4.3-11.1) H 12/20/18 02:15 RBC 3.50 M/mcL (3.82-4.97) L 12/21/18 03:12 Hgb 9.1 g/dL (11.5-15.4) L 12/21/18 03:12 Hct 30.1 % (35.3-44.9) L 12/21/18 03:12 MCV 82.4 fL (83.0-100.0) L 12/18/18 00:11 MCH 26.0 pg (28.0-33.3) L 12/21/18 03:12 MCHC 30.2 g/dL (31.6-35.5) L 12/21/18 03:12 MPV 9.1 fL (9.4-12.4) L 12/17/18 04:14 10.6 K/mcL (1.6-8.9) H 12/20/18 02:15 1.6 K/mcL (0.0-1.3) H 12/17/18 04:14 Present (Not Present) A 12/21/18 03:12 ESR 65 mm/hr (0-15) H 12/18/18 00:11 Sodium 135 mEq/L (136-145) L 12/20/18 02:15 Chloride 108 mEq/L (98-107) H 12/21/18 03:12 Carbon Dioxide 21 mEq/L (23-29) L 12/16/18 13:00 BUN 21 mg/dL (6-20) H 12/18/18 00:11 Est GFR (Non-Af Amer) 54 (> 60) L 12/19/18 21:43 Glucose 229 mg/dL (70-105) H 12/21/18 03:12 POC Glucose 174 mg/dL (70-99) H 12/21/18 20:37 12.5 % (-5.6) H 12/16/18 13:25 Calcium 8.2 mg/dL (8.6-10.3) L 12/21/18 03:12 Magnesium 1.4 mg/dL (1.6-2.6) L 12/17/18 04:14 14 Units/L (30-223) L 12/16/18 13:00 259 mg/L (Less than 10) H 12/18/18 00:11 Vancomycin Trough 19 mcg/mL (5-10) H 12/20/18 02:15 Microbiology, Last 48 Hours 12/16/18 13:00 Blood Culture - Final Peripheral Venipuncture No growth. Final report. 12/16/18 13:00 Blood Culture - Final Peripheral Venipuncture No growth. Final report. 12/19/18 12:25 Wound Culture - Preliminary Left Foot No pathogens isolated. 12/19/18 12:25 Anaerobic Culture - Preliminary Left Foot Culture is incubating. Consult Discharge Plan - Plan Referrals: Jaz Pascual CNP [Primary Care Provider] - Sarah Almazan CNP [Advanced Practice Nurse] - 01/10/19 1:45 pm Prescriptions: cefTRIAXone [Rocephin] 2,000 mg IVPB DAILY #28 vial
--- NOTE | 2018-12-22 13:00 | Internal Med Progress Note ---
Hospitalist Progress Note - Encounter Date of Encounter: 12/22/18 Time of Encounter: 10:15 - Subjective Interval History: Patient is awake and alert. Pain controlled in her left foot. No fever or chills reported overnight. No new complaints at this time besides the pain. - Exam Vitals: Temp Pulse Resp BP Pulse Ox 98.6 F 66 16 121/78 96 12/22/18 11:52 12/22/18 11:52 12/22/18 11:52 12/22/18 11:52 12/22/18 11:52 Exam: General: Patient is alert, no acute distress, oriented x 3 ENT: Mucous membranes moist Respiratory: Mild end expiratory wheezing Cardiovascular: Regular rate and rhythm. s1 and s2 normal No clicks, rubs, gallops, or murmurs. No pedal edema Abdomen: Abdomen is soft, nontender. Bowel sounds are present Musculoskeletal: Spontaneously moving all extremities, left foot bandaged with wound VAC in place Skin: warm, dry, intact. Neuro: Alert oriented x 3 normal cranial nerves, no focal deficits - Assessment and Plan (1) Cellulitis of left leg Current Visit: Yes Status: Acute Assessment and Plan: With abscess of the left foot and ankle. Status post incision and drainage. Wound VAC in place. Intraoperative wound cultures remain negative. Initial wound cultures growing Klebsiella and strep. Infectious disease following. P atient on Rocephin and Flagyl. Patient will be on these medications for at least 4 weeks per infectious disease recommendations. Awaiting placement to skilled rehabilitation. (2) Sepsis Current Visit: Yes Status: Acute Assessment and Plan: Improved. Blood cultures have been negative. (3) COPD (chronic obstructive pulmonary disease) Current Visit: Yes Status: Chronic Assessment and Plan: Not in acute exacerbation. Continue bronchodilators as needed (4) Diabetes Current Visit: Yes Status: Chronic Assessment and Plan: Will increase Levemir to 30 units twice daily. Monitor blood sugars closely. Continue sliding scale insulin. Diabetic diet. (5) Hyponatremia Current Visit: Yes Status: Resolved (6) DVT prophylaxis Current Visit: Yes Status: Acute Assessment and Plan: Continue subcutaneous heparin - Time Spent with Patient Total time spent is greater than 50% in coordination of care (as documented) at patient's floor/unit and/or counseling patient: Internal Medicine: Result - Labs CBC & Chem 7: 12/21/18 03:12 12/21/18 03:12 - Impressions Impressions Ankle CT 12/18/18 10:00 IMPRESSION: Shallow soft tissue ulceration along the anterior aspect of the ankle with suspected 10 x 10 x 9 mm abscess or focal phlegmonous change just superior to the area of the ulceration. Extensive subcutaneous edema and skin thickening consistent with cellulitis. No evidence of deep soft tissue infection. No acute bone or joint abnormality. Mild tibiotalar joint osteoarthritis. D/ / 12/18/2018 11:07:23 Anival Rodgers MD / Helena Watts Interpreting Provider: Anival Rodgers MD Consult Discharge Plan - Plan Referrals: Jaz Pascual, [employer] [Primary Care Provider] - Sarah Almazan CNP [Advanced Practice Nurse] - 01/10/19 1:45 pm Prescriptions: cefTRIAXone [Rocephin] 2,000 mg IVPB DAILY #28 vial (2) Sepsis Qualifiers: Qualified Code(s): A41.9 - Sepsis, unspecified organism (3) COPD (chronic obstructive pulmonary disease) Qualifiers: Qualified Code(s): J44.9 - Chronic obstructive pulmonary disease, unspecified (4) Diabetes Qualifiers: Diabetes mellitus type: type 2 Diabetes mellitus keno terminal operator insulin use: without assisted use Diabetes mellitus complication status: without complication Qualified Code(s): E11.9 - Type 2 diabetes mellitus without complications
[2018-12-22] MEDS ORDERED: Insulin DETEMIR 100 UNIT/ML X5UNITS SQ ONE (13:04)
[2018-12-22] MEDS: cefTRIAXone 2,000 MG in Water for inj. (sterile) 20 ML IVP SCH (13:45)
[2018-12-22] MEDS: Insulin DETEMIR 100 UNIT/ML X5UNITS SQ ONE (14:02)
[2018-12-22 16:42] LABS: Hepatitis B Surface Antibody 30.15 mIU/mL
[2018-12-22 16:53] LABS: Hepatitis B Surface Antigen Nonreactive (Nonreactive)
[2018-12-22 17:22] LABS: HIV-1&2 Antibody & p24 Ag Nonreactive (Nonreactive); Hepatitis C Virus Antibody Nonreactive (Nonreactive)
[2018-12-22] MEDS: Insulin DETEMIR 100 UNIT/ML X5UNITS SQ SCH (21:34)
[2018-12-23] MEDS: *HR* OxyCODONE/APAP 5/325 TABLET PO PRN ×3 (03:53→19:40)
[2018-12-23] MEDS: *HR* Heparin 5,000 UNIT/ML VIAL SQ SCH ×2 (05:20→17:34)
[2018-12-23] MEDS: Budesonide/Formoterol 160/4.5 1 PUFF INH IH SCH ×2 (07:19→22:46)
[2018-12-23] MEDS: Tiotropium 18 MCG inhalation IH SCH (07:22)
[2018-12-23] MEDS: Cholecalciferol (D-3) 1,000 UNIT (25MCG) TABLET PO SCH (08:00)
[2018-12-23] MEDS: BuPROPion XL (24 HR) 150 MG TABLET PO SCH (08:01)
[2018-12-23] MEDS: Famotidine 20 MG TABLET PO SCH (08:01)
[2018-12-23] MEDS: Insulin LISPRO 300 UNITS/3 ML VIAL SQ SCH ×4 (08:01→21:04)
[2018-12-23] MEDS: Gabapentin 400 MG CAPSULE PO SCH ×3 (08:01→19:40)
[2018-12-23] MEDS: *HR* HYDROcodone/Acet 5/325 mg TABLET PO PRN ×3 (08:01→22:15)
[2018-12-23] MEDS: metroNIDAZOLE 500 MG TABLET PO SCH ×3 (08:01→17:34)
[2018-12-23] MEDS: tiZANidine 4 MG TABLET PO SCH ×3 (08:08→19:40)
[2018-12-23] MEDS: Lactobacillus 1 EACH CAP.SPRINK PO SCH ×2 (08:08→19:40)
[2018-12-23] MEDS: Lisinopril 20 MG TABLET PO SCH (08:08)
[2018-12-23] MEDS: Insulin DETEMIR 100 UNIT/ML X5UNITS SQ SCH ×2 (08:09→21:04)
[2018-12-23] MEDS: Nicotine 21 MG PATCH.TD24 TD SCH (08:09)
--- NOTE | 2018-12-23 11:44 | Internal Med Progress Note ---
Hospitalist Progress Note - Encounter Date of Encounter: 12/23/18 Time of Encounter: 11:42 - Subjective Interval History: Patient lying down in bed. Comfortable. Pain in left leg controlled. Denies any fevers or chills overnight. Tolerating diet well. - Exam Vitals: Temp Pulse Resp BP Pulse Ox 98.1 F 62 16 120/72 95 12/23/18 10:54 12/23/18 10:54 12/23/18 10:54 12/23/18 10:54 12/23/18 10:54 Exam: General: Patient is alert, no acute distress, oriented x 3 ENT: Mucous membranes moist Respiratory: Good respiratory effort. Normal breath sounds. No wheezing or crackles. Cardiovascular: Regular rate and rhythm. s1 and s2 normal No clicks, rubs, gallops, or murmurs. No pedal edema Abdomen: Abdomen is soft, nontender. Bowel sounds are present Musculoskeletal: Left foot bandaged with wound VAC in place Skin: warm, dry, intact. Neuro: Alert oriented x 3 normal cranial nerves, no focal deficits - Assessment and Plan (1) Cellulitis of left leg Current Visit: Yes Status: Acute Assessment and Plan: With abscess involving the left foot. Status post incision and drainage in multiple planes. Continue local wound care. Wound VAC care. Wound culture is growing Klebsiella and enterococcus. Continue Rocephin and Flagyl. Await final recommendations from infectious disease. Awaiting placement to skilled rehabilitation for long-term antibiotics. (2) Sepsis Current Visit: Yes Status: Resolved Assessment and Plan: Due to cellulitis. Resolved (3) COPD (chronic obstructive pulmonary disease) Current Visit: Yes Status: Chronic Assessment and Plan: Continue bronchodilators as needed. (4) Diabetes Current Visit: Yes Status: Chronic Assessment and Plan: Blood sugars 128 this morning. We will continue current insulin regimen. Continue to monitor blood sugars and continue diabetic diet (5) Hyponatremia Current Visit: Yes Status: Resolved (6) DVT prophylaxis Current Visit: Yes Status: Acute Assessment and Plan: Subcutaneous heparin - Time Spent with Patient Total time spent is greater than 50% in coordination of care (as documented) at patient's floor/unit and/or counseling patient: Internal Medicine: Result - Labs CBC & Chem 7: 12/21/18 03:12 12/21/18 03:12 Consult Discharge Plan - Plan Referrals: Ankur,Jaz L, DIRECTOR OF RADIO SERVICES [Primary Care Provider] - Sarah Almazan CNP [Advanced Practice Nurse] - 01/10/19 1:45 pm Prescriptions: cefTRIAXone [Rocephin] 2,000 mg IVPB DAILY #28 vial (2) Sepsis Qualifiers: Qualified Code(s): A41.9 - Sepsis, unspecified organism (3) COPD (chronic obstructive pulmonary disease) Qualifiers: Qualified Code(s): J44.9 - Chronic obstructive pulmonary disease, unspecified (4) Diabetes Qualifiers: Diabetes mellitus type: type 2 Diabetes mellitus skilled nursing insulin use: without skilled nursing use Diabetes mellitus complication status: without complication Qualified Code(s): E11.9 - Type 2 diabetes mellitus without complications
[2018-12-23] MEDS: cefTRIAXone 2,000 MG in Water for inj. (sterile) 20 ML IVP SCH (12:18)
[2018-12-24] MEDS: *HR* OxyCODONE/APAP 5/325 TABLET PO PRN ×4 (02:15→21:37)
[2018-12-24] MEDS: *HR* HYDROcodone/Acet 5/325 mg TABLET PO PRN ×3 (04:23→17:33)
[2018-12-24] MEDS: *HR* Heparin 5,000 UNIT/ML VIAL SQ SCH ×2 (04:23→17:33)
[2018-12-24] MEDS: Gabapentin 400 MG CAPSULE PO SCH ×3 (07:57→21:16)
[2018-12-24] MEDS: Lisinopril 20 MG TABLET PO SCH (07:57)
[2018-12-24] MEDS: Nicotine 21 MG PATCH.TD24 TD SCH (07:57)
[2018-12-24] MEDS: Famotidine 20 MG TABLET PO SCH (07:58)
[2018-12-24] MEDS: Insulin DETEMIR 100 UNIT/ML X5UNITS SQ SCH ×2 (07:58→21:17)
[2018-12-24] MEDS: Cholecalciferol (D-3) 1,000 UNIT (25MCG) TABLET PO SCH (07:58)
[2018-12-24] MEDS: metroNIDAZOLE 500 MG TABLET PO SCH ×3 (07:58→16:43)
[2018-12-24] MEDS: Lactobacillus 1 EACH CAP.SPRINK PO SCH ×2 (07:58→21:16)
[2018-12-24] MEDS: tiZANidine 4 MG TABLET PO SCH ×3 (07:58→21:16)
[2018-12-24] MEDS: BuPROPion XL (24 HR) 150 MG TABLET PO SCH (07:58)
[2018-12-24] MEDS: Insulin LISPRO 300 UNITS/3 ML VIAL SQ SCH ×4 (07:58→21:17)
[2018-12-24] MEDS: amLODIPine 5 MG TABLET PO SCH (09:16)
[2018-12-24] MEDS: Tiotropium 18 MCG inhalation IH SCH (10:42)
[2018-12-24] MEDS: Budesonide/Formoterol 160/4.5 1 PUFF INH IH SCH ×2 (10:42→21:20)
[2018-12-24] MEDS: cefTRIAXone 2,000 MG in Water for inj. (sterile) 20 ML IVP SCH (11:35)
--- NOTE | 2018-12-24 13:58 | Internal Med Progress Note ---
Hospitalist Progress Note - Encounter Date of Encounter: 12/24/18 Time of Encounter: 13:56 - Subjective Interval History: Patient seen earlier today. Awake and alert. Sitting up in bed. Complains of pain in left foot but well controlled. Wound VAC had been removed on Tuesday and was not able to be replaced. Patient denies any other complaints at this time. - Exam Vitals: Temp Pulse Resp BP Pulse Ox 97.9 F 62 16 115/63 96 12/24/18 10:56 12/24/18 10:56 12/24/18 10:56 12/24/18 10:56 12/24/18 10:56 Exam: General: Patient is alert, no acute distress, oriented x 3 Respiratory: Good respiratory effort. Normal breath sounds. No wheezing or crackles. Cardiovascular: Regular rate and rhythm. s1 and s2 normal No clicks, rubs, gallops, or murmurs. No pedal edema Abdomen: Abdomen is soft, nontender. Bowel sounds are present Musculoskeletal: Spontaneously moving all extremities.left foot bandaged. Wound VAC removed.; Neuro: Alert oriented x 3 normal cranial nerves, no focal deficits - Assessment and Plan (1) Cellulitis of left leg Current Visit: Yes Status: Acute (2) Sepsis Current Visit: Yes Status: Resolved (3) COPD (chronic obstructive pulmonary disease) Current Visit: Yes Status: Chronic (4) Diabetes Current Visit: Yes Status: Chronic (5) Hyponatremia Current Visit: Yes Status: Resolved (6) DVT prophylaxis Current Visit: Yes Status: Acute - Summary of Assessment and Plan Summary of Assessment and Plan: Patient continues to improve clinically. Continue current antibiotics. Await infectious disease recommendations for antibiotics tomorrow based on new intraoperative culture results. Awaiting placement to skilled rehabilitation. Blood sugars are better controlled. Continue current insulin regimen. Blood pressure is elevated. Will add amlodipine at a lower dose to control blood pressure better. Continue Zestril. - Time Spent with Patient Total time spent is greater than 50% in coordination of care (as documented) at patient's floor/unit and/or counseling patient: Internal Medicine: Result - Labs CBC & Chem 7: 12/21/18 03:12 12/21/18 03:12 Consult Discharge Plan - Plan Referrals: Jaz Pascual CNP [Primary Care Provider] - Sarah Almazan CNP [Advanced Practice Nurse] - 01/10/19 1:45 pm Prescriptions: cefTRIAXone [Rocephin] 2,000 mg IVPB DAILY #28 vial (2) Sepsis Qualifiers: Qualified Code(s): A41.9 - Sepsis, unspecified organism (3) COPD (chronic obstructive pulmonary disease) Qualifiers: Qualified Code(s): J44.9 - Chronic obstructive pulmonary disease, unspecified (4) Diabetes Qualifiers: Diabetes mellitus type: type 2 Diabetes mellitus nursing home insulin use: without moth exterminator use Diabetes mellitus complication status: without complication Qualified Code(s): E11.9 - Type 2 diabetes mellitus without complications
[2018-12-25] MEDS: *HR* HYDROcodone/Acet 5/325 mg TABLET PO PRN ×4 (00:47→21:56)
[2018-12-25] MEDS: *HR* OxyCODONE/APAP 5/325 TABLET PO PRN ×3 (05:10→18:14)
[2018-12-25] MEDS: *HR* Heparin 5,000 UNIT/ML VIAL SQ SCH ×2 (05:14→18:15)
[2018-12-25 06:20] LABS: Basophils # 0.1 K/mcL (0.0-0.2); Basophils % 0.7 %; Eosinophils # 0.4 K/mcL (0.0-0.6); Eosinophils % 3.6 %; Hematocrit 35.1 % (35.3-44.9); Immature Granulocytes % 1.5 % (0-4); Lymphocytes # 2.9 K/mcL (0.6-4.6); Lymphocytes % 26.1 %; Mean Corpuscular HGB Conc 30.8 g/dL (31.6-35.5); Mean Corpuscular Hemoglobin 26.2 pg (28.0-33.3); Mean Corpuscular Volume 85.2 fL (83.0-100.0); Mean Platelet Volume 8.6 fL (9.4-12.4); Monocytes # 0.7 K/mcL (0.0-1.3); Monocytes % 6.3 %; Platelet Count 480 K/mcL (140-400); Red Blood Count 4.12 M/mcL (3.82-4.97); Red Cell Distribution Width 13.3 % (11.5-14.5); Segmented Neutrophils % 61.8 %; White Blood Count 11.3 K/mcL (4.3-11.1)
[2018-12-25 06:22] LABS: Hemoglobin 10.8 g/dL (11.5-15.4)
[2018-12-25 06:38] LABS: BUN/Creatinine Ratio 18 (6-26); Blood Urea Nitrogen 16 mg/dL (6-20); Calcium 9.6 mg/dL (8.6-10.3); Carbon Dioxide 34 mEq/L (23-29); Chloride 100 mEq/L (98-107); Glucose 119 mg/dL (70-105); Osmolality,Calculated 292 (280-300); Potassium 4.1 mEq/L (3.5-5.1); Sodium 140 mEq/L (136-145); eGFR For African Americans > 60 (> 60); eGFR For Non-African Americans > 60 (> 60)
[2018-12-25] MEDS: Tiotropium 18 MCG inhalation IH SCH (07:44)
[2018-12-25] MEDS: Budesonide/Formoterol 160/4.5 1 PUFF INH IH SCH ×2 (07:44→20:15)
[2018-12-25] MEDS: Insulin LISPRO 300 UNITS/3 ML VIAL SQ SCH ×4 (08:10→20:04)
[2018-12-25] MEDS: metroNIDAZOLE 500 MG TABLET PO SCH ×4 (08:15→17:07)
[2018-12-25] MEDS: Nicotine 21 MG PATCH.TD24 TD SCH (09:21)
[2018-12-25] MEDS: Lactobacillus 1 EACH CAP.SPRINK PO SCH ×2 (09:22→20:03)
[2018-12-25] MEDS: Famotidine 20 MG TABLET PO SCH (09:22)
[2018-12-25] MEDS: amLODIPine 5 MG TABLET PO SCH (09:23)
[2018-12-25] MEDS: BuPROPion XL (24 HR) 150 MG TABLET PO SCH (09:23)
[2018-12-25] MEDS: Gabapentin 400 MG CAPSULE PO SCH ×3 (09:23→20:03)
[2018-12-25] MEDS: tiZANidine 4 MG TABLET PO SCH ×3 (09:23→20:03)
[2018-12-25] MEDS: Lisinopril 20 MG TABLET PO SCH (09:23)
[2018-12-25] MEDS: Cholecalciferol (D-3) 1,000 UNIT (25MCG) TABLET PO SCH (09:23)
[2018-12-25] MEDS: Insulin DETEMIR 100 UNIT/ML X5UNITS SQ SCH ×2 (09:24→20:04)
[2018-12-25] MEDS: cefTRIAXone 2,000 MG in Water for inj. (sterile) 20 ML IVP SCH (11:55)
--- NOTE | 2018-12-25 13:23 | Infectious Disease Progress No ---
ID Progress Note Date of Encounter: 12/25/18 Time of Encounter: 13:21 - Subjective Subjective: Patient seen and examined. Doing well clinically. Appears comfortable laying in bed. Denies any chest pain no shortness of breath no nausea no vomiting no diarrhea no urinary symptoms no abdominal pain. Foot wound under control. Vital signs: Afebrile Labs reviewed Left foot cultures: Klebsiella pneumoniae, group B streptococcus and ampicillin sensitive Enterococcus faecalis - Objective CBC & Chem 7: 12/25/18 06:07 12/25/18 06:07 - Exam Vitals: Temp Pulse Resp BP Pulse Ox 98.5 F 53 16 113/74 95 12/25/18 11:31 12/25/18 11:31 12/25/18 11:31 12/25/18 11:31 12/25/18 11:31 Exam: GENERAL: Comfortable. Laying in bed NAD HEENT: NESSA, EOMI LUNGS: Good air sounds bilaterally, no wheezing or rhonchi CV: RRR, S1 S2 ABDOMEN: Soft, nontender, + bowel sounds EXT: Left foot wrapped. I did not unwrap it. We will ask podiatry to send us a picture NEURO: A&OX3; no focal deficit - Assessment and Plan (1) Sepsis Current Visit: Yes Status: Resolved The patient had 2 sepsis criteria on admission. Likely secondary to left lower extremity cellulitis and abscess. White blood cell count normal. Afebrile overnight. Tachycardia resolved. Blood cultures drawn 12/16/18 are no growth to date 2 sets. Qualifiers: Qualified Code(s): A41.9 - Sepsis, unspecified organism SNOMED Code(s): 58963316 (2) Cellulitis of left leg Current Visit: Yes Status: Acute Location: Left lower extremity. Causative organism: Group B strep and Klebsiella pneumoniae. Etiology: Unclear. The patient is unaware of any trauma to the leg. She does report [place] her onset of symptoms, but denies any known insect or animal bites. Purulent. Failed outpatient oral antibiotics (doxycycline). CT of the left lower extremity 12/16/18 showed diffuse subcutaneous edema involving the imaged lower leg and foot. No subcutaneous gas or organized drainable fluid collection was identified. No acute osseous abnormality identified. No CT evidence for osteomyelitis. CK level was normal. Repeat CT of the left lower extremity 12/18/18 shows a shallow soft tissue ulceration along the anterior aspect of the ankle with suspected 10 x 10 x 9 mm abscess or focal phlegmon is changed is superior to the area of the ulceration. Extensive subcutaneous edema and skin thickening consistent with cellulitis noted. No evidence of deep soft tissue infection, or acute bone or joint abnormality. Podiatry consulted. Status post I&D 12/19/[address] Jin. Intraoperative cultures were obtained and are no growth. Clinically improved. Currently on Rocephin and Flagyl. SNOMED Code(s): 663804590 (3) Abscess Current Visit: Yes Status: Acute Location: Anterior aspect of the left ankle. Causative organism: Klebsiella pneumoniae, group B streptococcus and ampicillin sensitive Enterococcus faecalis Podiatry consult. Status post I&D 12/19/[address] Jin. Currently on Rocephin and Flagyl. SNOMED Code(s): 957833450 (4) COPD (chronic obstructive pulmonary disease) Current Visit: Yes Status: Chronic Qualifiers: Qualified Code(s): J44.9 - Chronic obstructive pulmonary disease, unspecified SNOMED Code(s): 81455045 (5) Diabetes Current Visit: Yes Status: Chronic Uncontrolled. Hemoglobin A1c 12.5%. Recommend aggressive glucose monitoring and control to promote wound healing and prevent reinfection. Management per the primary team. Qualifiers: Diabetes mellitus type: type 2 Diabetes mellitus snf insulin use: without railroad signal technician use Diabetes mellitus complication status: without complication Qualified Code(s): E11.9 - Type 2 diabetes mellitus without complications SNOMED Code(s): 74649375 (6) Penicillin allergy Current Visit: Yes Status: Acute Reports anaphylactic reaction to penicillin when taken 30 years ago. SNOMED Code(s): 98948423 - Recommendations Recommendations: Continue Rocephin 2 g IV daily Continue Flagyl 500 mg 3 times a day Start vancomycin with goal vancomycin trough 10-15. Reason were doing vancomycin is patient is allergic to penicillin so I cannot use ampicillin/sulbactam which would be ideal in her situation, it would cover the enterococcus, Klebsiella and anaerobes Hepatitis and HIV were negative. Patient was notified Might relate to switch the midline to a PICC line since now the patient needs vancomycin as well Duration of treatment depends on the clinical picture but maybe 4 weeks total depending on the inflammatory markers Weekly CBC, BUN/creatinine, ESR, CRP and vancomycin trough Follow-up with infectious disease 01/10/2019 at 1345 Consult Discharge Plan - Plan Referrals: Jaz Pascual CNP [Primary Care Provider] - Sarah Almazan CNP [Advanced Practice Nurse] - 01/10/19 1:45 pm Prescriptions: cefTRIAXone [Rocephin] 2,000 mg IVPB DAILY #28 vial
--- NOTE | 2018-12-25 14:25 | Internal Med Progress Note ---
Hospitalist Progress Note - Encounter Date of Encounter: 12/25/18 Time of Encounter: 14:25 - Subjective Interval History: Evaluated patient earlier today. Her foot pain is well controlled. She denies any new complaints. Tolerating diet well. No fevers or chills reported overnight. - Exam Vitals: Temp Pulse Resp BP Pulse Ox 98.5 F 53 16 113/74 95 12/25/18 11:31 12/25/18 11:31 12/25/18 11:31 12/25/18 11:31 12/25/18 11:31 Exam: General: Patient is alert, no acute distress, oriented x 3 Respiratory: Good respiratory effort. Normal breath sounds. No wheezing or crackles. Cardiovascular: Regular rate and rhythm. s1 and s2 normal No clicks, rubs, gallops, or murmurs. No pedal edema Abdomen: Abdomen is soft, nontender. Bowel sounds are present Musculoskeletal: Spontaneously moving all extremities, left foot bandaged. Mildly tender to palpation. Skin: warm, dry, intact. - Assessment and Plan (1) Cellulitis of left leg Current Visit: Yes Status: Acute (2) Sepsis Current Visit: Yes Status: Resolved (3) COPD (chronic obstructive pulmonary disease) Current Visit: Yes Status: Chronic (4) Diabetes Current Visit: Yes Status: Chronic (5) Hyponatremia Current Visit: Yes Status: Resolved (6) DVT prophylaxis Current Visit: Yes Status: Acute - Summary of Assessment and Plan Summary of Assessment and Plan: Patient being treated for cellulitis and abscess involving the left foot and ankle. Status post incision and debridement done in multiple planes. Wound cultures growing Enterococcus faecalis and Klebsiella along with Streptococcus . Infectious disease following. As patient is allergic to penicillins, she has been placed on vancomycin. Continue Rocephin and metronidazole. Blood sugars are fairly controlled. Blood pressure was elevated this morning but has since improved. Continue current medications. Awaiting placement to skilled rehabilitation. We will place consult for PICC line placement now that the patient is also on vancomycin. - Time Spent with Patient Total time spent is greater than 50% in coordination of care (as documented) at patient's floor/unit and/or counseling patient: Internal Medicine: Result - Labs CBC & Chem 7: 12/25/18 06:07 12/25/18 06:07 Labs: Short CBC 12/25/18 Range/Units 06:07 WBC 11.3 H (4.3-11.1) K/mcL Hgb 10.8 L D (11.5-15.4) g/dL Hct 35.1 L (35.3-44.9) % Plt Count 480 H (140-400) K/mcL Neutrophils # 7.0 (1.6-8.9) K/mcL BMP 12/25/18 06:07 Sodium 140 Potassium 4.1 Chloride 100 Carbon Dioxide 34 H BUN 16 Creatinine 0.90 Glucose 119 H Calcium 9.6 Consult Discharge Plan - Plan Referrals: Jaz Pascual, [employer] [Primary Care Provider] - Sarah Almazan CNP [Advanced Practice Nurse] - 01/10/19 1:45 pm Prescriptions: cefTRIAXone [Rocephin] 2,000 mg IVPB DAILY #28 vial (2) Sepsis Qualifiers: Qualified Code(s): A41.9 - Sepsis, unspecified organism (3) COPD (chronic obstructive pulmonary disease) Qualifiers: Qualified Code(s): J44.9 - Chronic obstructive pulmonary disease, unspecified (4) Diabetes Qualifiers: Diabetes mellitus type: type 2 Diabetes mellitus termite exterminator insulin use: without residential use Diabetes mellitus complication status: without complication Qualified Code(s): E11.9 - Type 2 diabetes mellitus without complications
[2018-12-25] MEDS ORDERED: Lidocaine -MPF 1% 5 ML AMPUL INFILT ONE (14:27)
--- NOTE | 2018-12-25 15:34 | Podiatry Progress Note ---
Date of Encounter: 12/25/18 Time of Encounter: 15:05 - Assessment and Plan (1) Abscess Current Visit: Yes Status: Acute Assessment: -Post op day #6 incision and drainage left foot and ankle multiple planes with Dr. Jin on 12/19/18 -Erythema to foot and anterior lower extremity noted -Edema /4 -WBC 11.3 -Wound cultures final for Klebsiella pneu.ssp pneumoniae and Enterococcus faecalis - ID following -Anaerobic cultures final no anaerobes recovered -Blood cultures final for no growth Plan: -Cleaned site with sterile saline and pat dry -Granular tissue 10% and fibrin tissue 90% -Covered with with calcium alginate, 4x4 dry gauze, and Kerlix. Secured with medipore tape. -May need further debridement of wound and patient aware. -Continue dressing changes as ordered. -Will continue to monitor. (2) Cellulitis of left leg Current Visit: Yes Status: Acute Assessment: -Cellulitis LLE/foot -Edema / Plan: -ID following for ATB management Subjective Interval history: Post op day #6 #1: Incision and drainage left foot and ankle multiple planes by Dr. Jin on 12/19/2018 Patient is alert and oriented, no acute distress noted. No acute events noted. Patient denies any chest pain or shortness of breath. She does report some mild calf tenderness. patient denies any fever, chills, n/v/d. Objective - Vital Signs Vital Signs: Vital Signs Temp Pulse Resp BP Pulse Ox 12/25/18 14:35 99.0 F 61 16 102/64 95 12/25/18 11:31 98.5 F 53 16 113/74 95 12/25/18 07:44 16 96 12/25/18 07:23 98.6 F 64 16 150/76 91 12/25/18 04:56 98.1 F 65 17 156/85 93 12/24/18 21:20 16 93 12/24/18 19:12 98.6 F 66 15 144/82 93 Intake and Output 12/24/18 12/25/18 12/25/18 23:59 07:59 15:59 Intake Total 360 / 2180 870 / 870 Output Total 3300 / 3300 Balance 360 / 205 -3300 / -2430 870 / -2430 Intake: IV Fluids 270 / 270 Rocephin 2,000 MG In Water for 20 / 20 inj. (sterile) 20 ML @ 600 mls/ hr IVP Q24H [facility] Rx#:[id number] Vancocin 1,250 MG In 0.9 % 250 / 250 Sodium Chloride 250 ML @ 166.67 mls/hr IVPB Q12H [facility] Rx#: [id number] Oral 360 / 2160 600 / 600 Output: Urine 3300 / 3300 Other: Meal Dinner Lunch Percent of Meal Consumed 100% 25% Stool Size Moderate Stool Consistency liquid Stool Color Brown # Voids 1 2 # Bowel Movements 1 Blood Glucose* 132 152 250 - Exam Exam: Constitutional: Alert and oriented x 3. Well nourished. No acute distress noted Vascular: 2/4 DP/PT LLE, CFT <3 sec to all digits LLE, warm to warm from tibia to toes LLE, erythema noted to anterior lower extremity and left foot, edema 1/4, no pain with calf squeeze Neurological: Sensation to touch, normal plantar response Dermatological: Erythema and 1/4 edema noted to LLE, necrosis of medial midfoot periwound, wound bed with 10% granulation tissue and 90% fibrin tissue, pain upon palpation, minimal amount of serosangionous drainage noted. Musculoskeletal: 4/5 muscle strength and normal tone LLE. - Lab Result Diagrams: 12/25/18 06:07 12/25/18 06:07 Labs: Abnormal lab results WBC 11.3 K/mcL (4.3-11.1) H 12/25/18 06:07 RBC 3.50 M/mcL (3.82-4.97) L 12/21/18 03:12 Hgb 10.8 g/dL (11.5-15.4) L D 12/25/18 06:07 Hct 35.1 % (35.3-44.9) L 12/25/18 06:07 MCV 82.4 fL (83.0-100.0) L 12/18/18 00:11 MCH 26.2 pg (28.0-33.3) L 12/25/18 06:07 MCHC 30.8 g/dL (31.6-35.5) L 12/25/18 06:07 Plt Count 480 K/mcL (140-400) H 12/25/18 06:07 MPV 8.6 fL (9.4-12.4) L 12/25/18 06:07 10.6 K/mcL (1.6-8.9) H 12/20/18 02:15 1.6 K/mcL (0.0-1.3) H 12/17/18 04:14 Present (Not Present) A 12/21/18 03:12 ESR 65 mm/hr (0-15) H 12/18/18 00:11 Sodium 135 mEq/L (136-145) L 12/20/18 02:15 Chloride 108 mEq/L (98-107) H 12/21/18 03:12 Carbon Dioxide 34 mEq/L (23-29) H 12/25/18 06:07 BUN 21 mg/dL (6-20) H 12/18/18 00:11 Est GFR (Non-Af Amer) 54 (> 60) L 12/19/18 21:43 Glucose 119 mg/dL (70-105) H 12/25/18 06:07 POC Glucose 185 mg/dL (70-99) H 12/24/18 16:19 12.5 % (-5.6) H 12/16/18 13:25 Calcium 8.2 mg/dL (8.6-10.3) L 12/21/18 03:12 Magnesium 1.4 mg/dL (1.6-2.6) L 12/17/18 04:14 14 Units/L (30-223) L 12/16/18 13:00 259 mg/L (Less than 10) H 12/18/18 00:11 Vancomycin Trough 19 mcg/mL (5-10) H 12/20/18 02:15 Microbiology, Last 48 Hours 12/19/18 12:25 Anaerobic Culture - Final Left Foot No anaerobes were recovered. Consult Discharge Plan - Plan Referrals: Jaz Pascual CNP [Primary Care Provider] - Sarah Almazan CNP [Advanced Practice Nurse] - 01/10/19 1:45 pm Prescriptions: cefTRIAXone [Rocephin] 2,000 mg IVPB DAILY #28 vial
[2018-12-26] MEDS: *HR* OxyCODONE/APAP 5/325 TABLET PO PRN ×3 (00:31→17:03)
[2018-12-26 05:08] LABS: BUN/Creatinine Ratio 22 (6-26); Blood Urea Nitrogen 19 mg/dL (6-20); Calcium 9.1 mg/dL (8.6-10.3); Carbon Dioxide 28 mEq/L (23-29); Chloride 103 mEq/L (98-107); Glucose 170 mg/dL (70-105); Osmolality,Calculated 294 (280-300); Potassium 4.5 mEq/L (3.5-5.1); Sodium 139 mEq/L (136-145); eGFR For African Americans > 60 (> 60); eGFR For Non-African Americans > 60 (> 60)
[2018-12-26] MEDS: *HR* HYDROcodone/Acet 5/325 mg TABLET PO PRN ×3 (05:48→20:23)
[2018-12-26] MEDS: *HR* Heparin 5,000 UNIT/ML VIAL SQ SCH ×2 (05:49→16:58)
[2018-12-26] MEDS: Budesonide/Formoterol 160/4.5 1 PUFF INH IH SCH ×2 (07:30→20:27)
[2018-12-26] MEDS: Tiotropium 18 MCG inhalation IH SCH (07:31)
[2018-12-26] MEDS: Insulin LISPRO 300 UNITS/3 ML VIAL SQ SCH ×4 (07:36→20:24)
[2018-12-26] MEDS: Lactobacillus 1 EACH CAP.SPRINK PO SCH ×2 (07:46→20:22)
[2018-12-26] MEDS: Nicotine 21 MG PATCH.TD24 TD SCH (07:46)
[2018-12-26] MEDS: Cholecalciferol (D-3) 1,000 UNIT (25MCG) TABLET PO SCH (07:47)
[2018-12-26] MEDS: tiZANidine 4 MG TABLET PO SCH ×3 (07:47→20:22)
[2018-12-26] MEDS: metroNIDAZOLE 500 MG TABLET PO SCH (07:47)
[2018-12-26] MEDS: Gabapentin 400 MG CAPSULE PO SCH ×3 (07:47→20:23)
[2018-12-26] MEDS: Famotidine 20 MG TABLET PO SCH (07:47)
[2018-12-26] MEDS: Lisinopril 20 MG TABLET PO SCH (07:47)
[2018-12-26] MEDS: amLODIPine 5 MG TABLET PO SCH (07:48)
[2018-12-26] MEDS: BuPROPion XL (24 HR) 150 MG TABLET PO SCH (07:48)
[2018-12-26] MEDS: Insulin DETEMIR 100 UNIT/ML X5UNITS SQ SCH (07:49)
--- NOTE | 2018-12-26 10:40 | Podiatry Progress Note ---
Date of Encounter: 12/26/18 Time of Encounter: 10:20 - Assessment and Plan (1) Abscess Current Visit: Yes Status: Acute Assessment: -Post op day #7 incision and drainage left foot and ankle multiple planes with Dr. Jin on 12/19/18 -Erythema to foot and anterior lower extremity noted -Edema 08/11 -Wound cultures final for Klebsiella pneu.ssp pneumoniae and Enterococcus faecalis - ID following -Anaerobic cultures final no anaerobes recovered -Blood cultures final for no growth Plan: -Cleaned site with sterile saline and pat dry -Granular tissue 10% and fibrin tissue 90%, area of swelling noted proximal medial aspect -Santyl applied and covered with wet to dry dressing using sterile saline soaked 4x4's, dry 4x4 gauze, and Kerlix. Secured with medipore tape. -Change dressing BID and apply Santyl BID -Orders for dressing changes placed. -Dr. Jin to take patient to OR on for I&D. Patient aware and verbalized understanding. -Will continue to monitor (2) Cellulitis of left leg Current Visit: Yes Status: Acute Assessment: -Cellulitis LLE/foot -Edema 08/11 Plan: -ID following for ATB management Subjective Interval history: Post op day #7 #1: Incision and drainage left foot and ankle multiple planes by Dr. Jin on 12/19/2018 Patient is alert and oriented, no acute distress noted. No acute events noted. Patient denies any chest pain or shortness of breath. She does report some mild calf tenderness and pain proximal aspect of surgical wound. Patient denies any fever, chills, n/v/d. Objective - Vital Signs Vital Signs: Vital Signs Temp Pulse Resp BP Pulse Ox 12/26/18 07:32 18 96 12/26/18 07:19 98.3 F 65 16 146/81 95 12/26/18 03:59 97.9 F 57 16 127/78 92 12/25/18 20:41 98.5 F 62 16 145/87 93 12/25/18 20:18 14 91 12/25/18 14:35 99.0 F 61 16 102/64 95 12/25/18 11:31 98.5 F 53 16 113/74 95 Intake and Output 12/25/18 12/26/18 12/26/18 23:59 07:59 15:59 Intake Total 480 / 1350 490 / 850 360 / 850 Output Total 1999 Balance 480 / -1950 -1510 / -1150 360 / -1150 Intake: IV Fluids 250 / 250 Vancocin 1,250 MG In 0.9 % 250 / 250 Sodium Chloride 250 ML @ 166.67 mls/hr IVPB Q12H [facility] Rx#: [id number] Oral 480 / 1080 240 / 600 360 / 600 Output: Urine 1999 Other: Meal Dinner Breakfast Percent of Meal Consumed 100% 100% # Voids 2 # Bowel Movements 0 Weight 104.734 kg Blood Glucose* 145 88 Patient Weight 12/26/18 23:59 Weight 104.734 kg - Exam Exam: Constitutional: Alert and oriented x 3. Well nourished. No acute distress noted Vascular: 2/4 DP/PT LLE, CFT <3 sec to all digits LLE, warm to warm from tibia to toes LLE, erythema noted to anterior lower extremity and left foot, edema 1/4, no pain with calf squeeze Neurological: Sensation to touch, normal plantar response Dermatological: Erythema and 1/4 edema noted to LLE, necrosis of medial midfoot periwound, wound bed with 10% granulation tissue and 90% fibrin tissue, pain upon palpation, minimal amount of serosangionous drainage noted. There is an area of swelling and pain with palpation noted to the proximal medial aspect of the surgical wound. Musculoskeletal: 4/5 muscle strength and normal tone LLE. - Lab Result Diagrams: 12/25/18 06:07 12/26/18 04:38 Labs: Abnormal lab results WBC 11.3 K/mcL (4.3-11.1) H 12/25/18 06:07 RBC 3.50 M/mcL (3.82-4.97) L 12/21/18 03:12 Hgb 10.8 g/dL (11.5-15.4) L D 12/25/18 06:07 Hct 35.1 % (35.3-44.9) L 12/25/18 06:07 MCV 82.4 fL (83.0-100.0) L 12/18/18 00:11 MCH 26.2 pg (28.0-33.3) L 12/25/18 06:07 MCHC 30.8 g/dL (31.6-35.5) L 12/25/18 06:07 Plt Count 480 K/mcL (140-400) H 12/25/18 06:07 MPV 8.6 fL (9.4-12.4) L 12/25/18 06:07 10.6 K/mcL (1.6-8.9) H 12/20/18 02:15 1.6 K/mcL (0.0-1.3) H 12/17/18 04:14 Present (Not Present) A 12/21/18 03:12 ESR 65 mm/hr (0-15) H 12/18/18 00:11 Sodium 135 mEq/L (136-145) L 12/20/18 02:15 Chloride 108 mEq/L (98-107) H 12/21/18 03:12 Carbon Dioxide 34 mEq/L (23-29) H 12/25/18 06:07 BUN 21 mg/dL (6-20) H 12/18/18 00:11 Est GFR (Non-Af Amer) 54 (> 60) L 12/19/18 21:43 Glucose 170 mg/dL (70-105) H 12/26/18 04:38 POC Glucose 145 mg/dL (70-99) H 12/25/18 20:02 12.5 % (-5.6) H 12/16/18 13:25 Calcium 8.2 mg/dL (8.6-10.3) L 12/21/18 03:12 Magnesium 1.4 mg/dL (1.6-2.6) L 12/17/18 04:14 14 Units/L (30-223) L 12/16/18 13:00 259 mg/L (Less than 10) H 12/18/18 00:11 Vancomycin Trough 19 mcg/mL (5-10) H 12/20/18 02:15 Microbiology, Last 48 Hours 12/19/18 12:25 Anaerobic Culture - Final Left Foot No anaerobes were recovered. Consult Discharge Plan - Plan Referrals: Jaz Pascual CNP [Primary Care Provider] - Sarah Almazan CNP [Advanced Practice Nurse] - 01/10/19 1:45 pm Prescriptions: cefTRIAXone [Rocephin] 2,000 mg IVPB DAILY #28 vial
--- NOTE | 2018-12-26 10:57 | Infectious Disease Progress No ---
ID Progress Note Date of Encounter: 12/26/18 Time of Encounter: 10:10 - Subjective Subjective: Patient seen and examined with Podiatry. No acute events noted overnight. Postop day 7 from I&D of the left ankle. States overall she feels well. Denies fevers, chills, rigors. Denies chest pain, shortness of breath, or cough. Denies vomiting, diarrhea, or constipation. Reports some mild intermittent nausea. Reports two loose stools per day. Denies abdominal pain or urinary com plaints. Reports mild pain at the surgical site. Denies oral thrush or skin rashes. Discussed with Podiatry. Planning repeat washout on . - Objective CBC & Chem 7: 12/25/18 06:07 12/27/18 05:16 - Exam Vitals: Temp Pulse Resp BP Pulse Ox 98.3 F 65 18 146/81 96 12/26/18 07:19 12/26/18 07:19 12/26/18 07:32 12/26/18 07:19 12/26/18 07:32 Exam: Head: Atraumatic, normal inspection, normocephalic. Eye: EOMI, PERRLA, no scleral icterus noted. ENT: Mucous membranes moist. No odontogenic infection noted. Neck: Normal inspection, no meningismus. Respiratory: Clear to auscultation. No rales, respiratory distress, rhonchi, or wheezes noted. Cardiovascular: Regular rate and rhythm, S1 and S2 audible. No murmurs, rubs, or gallops. GI: Soft, nondistended, normal bowel sounds. Extremities:No joint swelling, pedal edema, or tenderness noted. Left foot and ankle surgical site with surrounding erythema noted, but improved. Wound bed is moist with fibrin tissue noted. No necrosis or foul odor noted. No streaking up the leg. Edema improved. Back: Normal inspection. No vertebral tenderness noted. Neurological: Alert, oriented 3, no focal deficits. Psychiatric: normal affect, normal mood. Skin: Dry, intact, warm. Normal color. No rashes. - Assessment and Plan (1) Sepsis Current Visit: Yes Status: Resolved The patient had 2 sepsis criteria on admission. Likely secondary to left lower extremity cellulitis and abscess. White blood cell count normal. Afebrile overnight. Tachycardia resolved. Blood cultures drawn 12/16/18 are negative 2 sets. Qualifiers: Qualified Code(s): A41.9 - Sepsis, unspecified organism SNOMED Code(s): 93572305 (2) Cellulitis of left leg Current Visit: Yes Status: Acute Location: Left lower extremity. Causative organism: Group B strep and Klebsiella pneumoniae and E. faecalis. Etiology: Unclear. The patient is unaware of any trauma to the leg. She does report [place] her onset of symptoms, but denies any known insect or animal bites. Purulent. Failed outpatient oral antibiotics (doxycycline). CT of the left lower extremity 12/16/18 showed diffuse subcutaneous edema involving the imaged lower leg and foot. No subcutaneous gas or organized drainable fluid collection was identified. No acute osseous abnormality identified. No CT evidence for osteomyelitis. CK level was normal. Repeat CT of the left lower extremity 12/18/18 shows a shallow soft tissue ulceration along the anterior aspect of the ankle with suspected 10 x 10 x 9 mm abscess or focal phlegmon is changed is superior to the area of the ulceration. Extensive subcutaneous edema and skin thickening consistent with cellulitis noted. No evidence of deep soft tissue infection, or acute bone or joint abnormality. Podiatry consulted. Status post I&D 12/19/[address] Jin. Intraoperative c ultures are positive for K. pneumoniae and E. faecalis. Clinically improved. Currently on Vanc, Rocephin and Flagyl. SNOMED Code(s): 646153246 (3) Abscess Current Visit: Yes Status: Acute Location: Anterior aspect of the left ankle. Causative organism: Klebsiella pneumoniae, group B streptococcus and ampicillin sensitive Enterococcus faecalis. Podiatry consult. Status post I&D 12/19/[address] Jin. Currently on Vanc, Rocephin and Flagyl. SNOMED Code(s): 155961386 (4) COPD (chronic obstructive pulmonary disease) Current Visit: Yes Status: Chronic Qualifiers: Qualified Code(s): J44.9 - Chronic obstructive pulmonary disease, unspecified SNOMED Code(s): 06338262 (5) Diabetes Current Visit: Yes Status: Chronic Uncontrolled. Hemoglobin A1c 12.5%. Recommend aggressive glucose monitoring and control to promote wound healing and prevent reinfection. Management per the primary team. Qualifiers: Diabetes mellitus type: type 2 Diabetes mellitus camera person insulin use: without detention use Diabetes mellitus complication status: without complication Qualified Code(s): E11.9 - Type 2 diabetes mellitus without complications SNOMED Code(s): 28577984 (6) Penicillin allergy Current Visit: Yes Status: Acute Reports anaphylactic reaction to penicillin when taken 30 years ago. SNOMED Code(s): 71794258 - Recommendations Recommendations: Wound care per podiatry. Diabetes management per the primary team. Continue Rocephin 2 grams IV daily. Continue Vancomycin IV. Pharmacy to dose. Goal trough ~15. Discontinue flagyl. Duration of treatment depends on the clinical picture. Will discuss with Podiatry, but will likely need 2-4 weeks of IV antibiotics based on the extent of the infection. Will plan to follow how the patient does clinically and her inflammatory markers and decide from there. Monitor renal function for drug toxicity and dose adjust antibiotics. clinical services director to assist with discharge planning. Recommend rehab placement on discharge. Will need weekly CBC, BUN/Cr, ESR, and CRP. Will need weekly IV care per protocol. Follow up with ID 01/10/19 at 1345. Consult Discharge Plan - Plan Referrals: Jaz Pascual CNP [Primary Care Provider] - Sarah Almazan CNP [Advanced Practice Nurse] - 01/10/19 1:45 pm Prescriptions: cefTRIAXone [Rocephin] 2,000 mg IVPB DAILY #28 vial - Attending Attestation I have personally performed a face to face evaluation on this patient. I have reviewed and agree with the care plan. History and Exam by me shows: Assessment and plan: 1.Left foot abscess noted on the CT scan. Causative organism group B streptococcus and klebsiella pneumoniae 2.sepsis 3.COPD 4.DM 2 5.PCN allergies 6.Concern for IV drug use Recommendations: Continue Rocephin 2 grams IV daily. Continue Vancomycin IV. Pharmacy to dose. Goal trough ~15. Discontinue flagyl. Need PICC line placement Will need weekly CBC, BUN/Cr, ESR, and CRP. Will need weekly IV care per protocol. Follow up with ID 01/10/19 at 1345.
[2018-12-26] MEDS: cefTRIAXone 2,000 MG in Water for inj. (sterile) 20 ML IVP SCH (12:07)
--- NOTE | 2018-12-26 14:05 | Internal Med Progress Note ---
Hospitalist Progress Note - Encounter Date of Encounter: 12/26/18 Time of Encounter: 13:56 - Subjective Interval History: Evaluated patient earlier today. No new complaints at this time. Denies any fevers or chills. No nausea or vomiting. Foot pain well controlled. - Exam Vitals: Temp Pulse Resp BP Pulse Ox 98.3 F 61 16 100/65 95 12/26/18 10:55 12/26/18 10:55 12/26/18 10:55 12/26/18 10:55 12/26/18 10:55 Exam: General: Patient is alert, no acute distress, oriented x 3 ENT: Mucous membranes moist Respiratory: Good respiratory effort. Normal breath sounds. No wheezing or crackles. Cardiovascular: Regular rate and rhythm. s1 and s2 normal No clicks, rubs, gallops, or murmurs. No pedal edema Abdomen: Abdomen is soft, nontender. Bowel sounds are present Musculoskeletal: Spontaneously moving all extremities , left foot bandaged. Less tender today. Skin: warm, dry, intact. Neuro: Alert oriented x 3 normal cranial nerves, no focal deficits - Assessment and Plan (1) Cellulitis of left leg Current Visit: Yes Status: Acute Assessment and Plan: And abscess involving the left foot (2) Sepsis Current Visit: Yes Status: Resolved (3) COPD (chronic obstructive pulmonary disease) Current Visit: Yes Status: Chronic (4) Diabetes Current Visit: Yes Status: Chronic (5) Hyponatremia Current Visit: Yes Status: Resolved (6) DVT prophylaxis Current Visit: Yes Status: Acute - Summary of Assessment and Plan Summary of Assessment and Plan: Patient being treated for cellulitis and abscess involving the left foot and ankle. Status post incision and debridement done in multiple planes. Wound cultures growing Enterococcus faecalis and Klebsiella along with Streptococcus . Plan to take patient for repeat debridement on . In the interim continue current antibiotics. Patient will need long-term IV antibiotics. Blood sugars improved overall but patient a.m. blood sugars are trending down. Will decrease evening dose of Levemir and increase morning dose slightly. Continue sliding scale coverage. Awaiting placement to skilled rehabilitation after surgery. - Time Spent with Patient Total time spent is greater than 50% in coordination of care (as documented) at patient's floor/unit and/or counseling patient: Internal Medicine: Result - Labs CBC & Chem 7: 12/25/18 06:07 12/26/18 04:38 Labs: [facility] 12/26/18 04:38 Sodium 139 Potassium 4.5 Chloride 103 Carbon Dioxide 28 BUN 19 Creatinine 0.86 Glucose 170 H Calcium 9.1 Consult Discharge Plan - Plan Referrals: Jaz Pascual, [employer] [Primary Care Provider] - Sarah Almazan CNP [Advanced Practice Nurse] - 01/10/19 1:45 pm Prescriptions: cefTRIAXone [Rocephin] 2,000 mg IVPB DAILY #28 vial __ (2) Sepsis Qualifiers: Qualified Code(s): A41.9 - Sepsis, unspecified organism (3) COPD (chronic obstructive pulmonary disease) Qualifiers: Qualified Code(s): J44.9 - Chronic obstructive pulmonary disease, unspecified (4) Diabetes Qualifiers: Diabetes mellitus type: type 2 Diabetes mellitus prison insulin use: without intermediate manager use Diabetes mellitus complication status: without complication Qualified Code(s): E11.9 - Type 2 diabetes mellitus without complications
[2018-12-26] MEDS: *HR* Promethazine 25 MG/ML VIAL IVP PRN (20:24)
[2018-12-26] MEDS ORDERED: Insulin DETEMIR 100 UNIT/ML X5UNITS SQ SCH (21:00)
[2018-12-27] MEDS: *HR* OxyCODONE/APAP 5/325 TABLET PO PRN ×3 (00:22→15:32)
[2018-12-27] MEDS: *HR* Heparin 5,000 UNIT/ML VIAL SQ SCH ×2 (05:14→17:23)
[2018-12-27] MEDS: *HR* HYDROcodone/Acet 5/325 mg TABLET PO PRN ×3 (05:14→21:02)
[2018-12-27 05:46] LABS: BUN/Creatinine Ratio 22 (6-26); Blood Urea Nitrogen 21 mg/dL (6-20); Carbon Dioxide 31 mEq/L (23-29); Chloride 102 mEq/L (98-107); Glucose 104 mg/dL (70-105); Osmolality,Calculated 293 (280-300); Potassium 4.7 mEq/L (3.5-5.1); Sodium 140 mEq/L (136-145); eGFR For African Americans > 60 (> 60); eGFR For Non-African Americans > 60 (> 60)
[2018-12-27] MEDS: Tiotropium 18 MCG inhalation IH SCH (07:39)
[2018-12-27] MEDS: Budesonide/Formoterol 160/4.5 1 PUFF INH IH SCH ×2 (07:39→20:03)
[2018-12-27] MEDS: Insulin LISPRO 300 UNITS/3 ML VIAL SQ SCH ×4 (08:12→21:01)
[2018-12-27] MEDS ORDERED: Insulin DETEMIR 100 UNIT/ML X5UNITS SQ SCH (09:00)
[2018-12-27] MEDS: Cholecalciferol (D-3) 1,000 UNIT (25MCG) TABLET PO SCH (09:33)
[2018-12-27] MEDS: Famotidine 20 MG TABLET PO SCH (09:34)
[2018-12-27] MEDS: tiZANidine 4 MG TABLET PO SCH ×3 (09:34→21:02)
[2018-12-27] MEDS: Lactobacillus 1 EACH CAP.SPRINK PO SCH ×2 (09:34→21:02)
[2018-12-27] MEDS: Gabapentin 400 MG CAPSULE PO SCH ×3 (09:34→21:02)
[2018-12-27] MEDS: amLODIPine 5 MG TABLET PO SCH (09:34)
[2018-12-27] MEDS: BuPROPion XL (24 HR) 150 MG TABLET PO SCH (09:34)
[2018-12-27] MEDS: Lisinopril 20 MG TABLET PO SCH (09:34)
[2018-12-27] MEDS: Nicotine 21 MG PATCH.TD24 TD SCH (09:35)
--- NOTE | 2018-12-27 09:55 | Infectious Disease Progress No ---
ID Progress Note Date of Encounter: 12/27/18 Time of Encounter: 09:15 - Subjective Subjective: Patient seen and examined. No acute events noted overnight. Postop day 8 from I&D of the left ankle. States overall she feels well. Denies fevers, chills, rigors. Denies chest pain, shortness of breath, or cough. Denies nausea, vomiting, diarrhea, or constipation. Reports one loose stool per day. Denies abdominal pain or urinary complaints. Reports mild pain at the surgical site. Denies oral thrush or skin rashes. Podiatry planning repeat washout on . - Objective CBC & Chem 7: 12/25/18 06:07 12/27/18 05:16 - Exam Vitals: Temp Pulse Resp BP Pulse Ox 97.6 F 66 18 149/77 96 12/27/18 07:08 12/27/18 07:08 12/27/18 07:40 12/27/18 07:08 12/27/18 07:40 Exam: Head: Atraumatic, normal inspection, normocephalic. Eye: EOMI, PERRLA, no scleral icterus noted. ENT: Mucous membranes moist. No odontogenic infection noted. Neck: Normal inspection, no meningismus. Respiratory: Clear to auscultation. No rales, respiratory distress, rhonchi, or wheezes noted. Cardiovascular: Regular rate and rhythm, S1 and S2 audible. No murmurs, rubs, or gallops. GI: Soft, nondistended, normal bowel sounds. Extremities:No joint swelling, pedal edema, or tenderness noted. Left foot and ankle dressing C/D/I. Neurological: Alert, oriented 3, no focal deficits. Psychiatric: normal affect, normal mood. Skin: Dry, intact, warm. Normal color. No rashes. - Assessment and Plan (1) Sepsis Current Visit: Yes Status: Resolved The patient had 2 sepsis criteria on admission. Likely secondary to left lower extremity cellulitis and abscess. White blood cell count normal. Afebrile overnight. Tachycardia resolved. Blood cultures drawn 12/16/18 are negative 2 sets. Qualifiers: Qualified Code(s): A41.9 - Sepsis, unspecified organism SNOMED Code(s): 43383608 (2) Cellulitis of left leg Current Visit: Yes Status: Acute Location: Left lower extremity. Causative organism: Group B strep and Klebsiella pneumoniae and E. faecalis. Etiology: Unclear. The patient is unaware of any trauma to the leg. She does report [place] her onset of symptoms, but denies any known insect or animal bites. Purulent. Failed outpatient oral antibiotics (doxycycline). CT of the left lower extremity 12/16/18 showed diffuse subcutaneous edema involving the imaged lower leg and foot. No subcutaneous gas or organized drainable fluid collection was identified. No acute osseous abnormality identified. No CT evidence for osteomyelitis. CK level was normal. Repeat CT of the left lower extremity 12/18/18 shows a shallow soft tissue ulceration along the anterior aspect of the ankle with suspected 10 x 10 x 9 mm abscess or focal phlegmon is changed is superior to the area of the ulceration. Extensive subcutaneous edema and skin thickening consistent with cellulitis noted. No evidence of deep soft tissue infection, or acute bone or joint abnormality. Podiatry consulted. Status post I&D 12/19/[address] Jin. Intraoperative cultures are positive for K. pneumoniae and E. faecalis. Clinically improved. Currently on Vanc, Rocephin. SNOMED Code(s): 903635488 (3) Abscess Current Visit: Yes Status: Acute Location: Anterior aspect of the left ankle. Causative organism: Klebsiella pneumoniae, group B streptococcus and ampicillin sensitive Enterococcus faecalis. Podiatry consult. Status post I&D 12/19/[address] Jin. Currently on Vanc, Rocephin. SNOMED Code(s): 903646934 (4) COPD (chronic obstructive pulmonary disease) Current Visit: Yes Status: Chronic Qualifiers: Qualified Code(s): J44.9 - Chronic obstructive pulmonary disease, unspecified SNOMED Code(s): 22154615 (5) Diabetes Current Visit: Yes Status: Chronic Uncontrolled. Hemoglobin A1c 12.5%. Recommend aggressive glucose monitoring and control to promote wound healing and prevent reinfection. Management per the primary team. Qualifiers: Diabetes mellitus type: type 2 Diabetes mellitus supervisor intermediates insulin use: without supervisor intermediates use Diabetes mellitus complication status: without complication Qualified Code(s): E11.9 - Type 2 diabetes mellitus without complications SNOMED Code(s): 42475344 (6) Penicillin allergy Current Visit: Yes Status: Acute Reports anaphylactic reaction to penicillin when taken 30 years ago. SNOMED Code(s): 56519546 - Recommendations Recommendations: Wound care per podiatry. Diabetes management per the primary team. Continue Rocephin 2 grams IV daily. Continue Vancomycin IV. Pharmacy to dose. Goal trough ~15. Duration of treatment depends on the clinical picture. Will discuss with Podiatry, but will likely need 2-4 weeks of IV antibiotics based on the extent of the infection. Will plan to follow how the patient does clinically and her inflammatory markers and decide from there. Monitor renal function for drug toxicity and dose adjust antibiotics. clinical services consultant to assist with discharge planning. Recommend rehab placement on discharge. Will need weekly CBC, BUN/Cr, ESR, and CRP. Will need weekly IV care per protocol. Follow up with ID 01/10/19 at 1345. Consult Discharge Plan - Plan Referrals: Jaz Pascual, SEARCH MARKETING COORDINATOR [Primary Care Provider] - Sarah Almazan CNP [Advanced Practice Nurse] - 01/10/19 1:45 pm Prescriptions: cefTRIAXone [Rocephin] 2,000 mg IVPB DAILY #28 vial - Attending Attestation I have personally performed a face to face evaluation on this patient. I have reviewed and agree with the care plan. History and Exam by me shows: Assessment and plan: 1.Left foot abscess noted on the CT scan. Causative organism group B streptococcus and klebsiella pneumoniae 2.sepsis 3.COPD 4.DM 2 5.PCN allergies 6.Concern for IV drug use Recommendations: Continue Rocephin 2 grams IV daily. Continue Vancomycin IV. Pharmacy to dose. Goal trough ~15. Discontinue flagyl. gonig for surgery again tomorrow.
[2018-12-27] MEDS: cefTRIAXone 2,000 MG in Water for inj. (sterile) 20 ML IVP SCH (12:28)
--- NOTE | 2018-12-27 17:05 | Anesthesia Evaluation PreOp ---
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: Denies Any Significant HX, Other (Depression) Other Medical History: Diabetes Type II, GERD, Other (Fibromyalgia) Anesthesia History: No Prior Anesthetic Complications, Past Anesthesia (Csection, CTR, hysterectomy, rhinoplasty, Foot I&D 12/19/2018) : No Alcohol Use: none Drug use: none Medications and Allergies Cetirizine HCl [Zyrtec] 10 mg PO DAILY 10/02/16 [History] Fluticasone/Salmeterol [Advair Hfa 115-21 Mcg Inhaler] 12 gm IH DAILY 10/02/16 [History] Paroxetine HCl [Paxil] 60 mg PO DAILY 10/02/16 [History] Tiotropium [Spiriva] 18 mcg IH 0700 10/02/16 [History] Tizanidine HCl 4 mg PO TID #15 tablet 09/22/17 [Rx] Atenolol [Tenormin] 25 mg PO DAILY 06/10/18 [History] Lisinopril [Zestril] 20 mg PO DAILY 06/10/18 [History] BuPROPion XL (24 HR) [Wellbutrin Xl] 150 mg PO DAILY 06/11/18 [History] Metformin HCl 500 mg PO BID 06/11/18 [History] Albuterol Sulfate [Ventolin Hfa] 2 puff PO Q4-6H PRN 12/16/18 [History] Cholecalciferol (Vitamin D3) [Vitamin D3] 10,000 unit PO DAILY 12/16/18 [History] Dicyclomine [Bentyl] 20 mg PO QID 12/16/18 [History] Gabapentin [Neurontin] 400 mg PO TID 12/16/18 [History] Glimepiride [Amaryl] 4 mg PO DAILY 12/16/18 [History] Ranitidine HCl [Acid Cognos Report Developer] 150 mg PO DAILY 12/16/18 [History] cefTRIAXone [Rocephin] 2,000 mg IVPB DAILY #28 vial 12/22/18 [Rx] Allergy/AdvReac Type Severity Reaction Status Date / Time Penicillins [PCN] Allergy Anaphylaxis Verified 11/18/17 11:53 - Meds/Allergy Pre-op Review Medications Reviewed: Yes Allergies Reviewed: Yes Beta Blockers on Current Med List: Yes Anesthesia Results - Labs 12/25/18 06:07 12/27/18 05:16 - Imaging EKG: report reviewed (SINUS RHYTHM WITH OCCASIONAL VENTRICULAR PREMATURE COMPLEXES WITH OCCASIONAL SUPRAVENTRICULAR PREMATURE COMPLEXES LEFT ANTERIOR FASCICULAR BLOCK IVCD) Additional studies: Echocardiogram Name: Marah Bills Date of Study: 06/11/2018 EV/EV echocardiogram Impressions: LVEF 60-65%. Normal LV chamber size, wall thickness and function. Normal left ventricular diastolic function. Normal right ventricular structure and function. Trace tricuspid regurgitation. Mild pulmonary hypertension. Anesthesia Exam Vital Signs/O2 Sat, Most Current Temp Pulse Resp BP Pulse Ox 98.2 F 63 16 99/61 95 12/27/18 13:48 12/27/18 13:48 12/27/18 13:48 12/27/18 13:48 12/27/18 13:48 NPO (# of Hours): > 8 hrs Pain Scale: 0 Pain Scale Used: Numeric (1 - 10) - HEENT Pupil (Motor): Pupils equal, EOMI Mallampati: III Teeth: Edentulous Oral Opening: Greater than 3 - CHAINSTITCH FELLED SEAM OPERATOR LOC: Oriented CHAINSTITCH FELLED SEAM OPERATOR Motor: Normal RUE, Normal LUE, Normal RLE, Normal LLE, Normal Face CHAINSTITCH FELLED SEAM OPERATOR Sensory: Normal: RUE, LUE, RLE, LLE, Face - Cardiac Rhythm: Regular Murmur: None JVD: No Carotid Bruit: No - Pulmonary Breath Sounds: bilateral Clear Respiratory Effort: Symmetrical Anesthesia Assess/Plan ASA Score: 3 Autologous Blood: Yes Monitoring Plan: Standard Monitors Recovery Plan: PACU
--- NOTE | 2018-12-27 17:49 | Internal Med Progress Note ---
Hospitalist Progress Note - Encounter Date of Encounter: 12/27/18 Time of Encounter: 11:00 - Subjective Interval History: Patient is a 53-year-old female who presented due to left lower extremity cellulitis and found to have abscess status post I&D by podiatry on 12/19/18 with wound VAC plans to take patient back OR 12/28/18. - Exam Vitals: Temp Pulse Resp BP Pulse Ox 98.2 F 63 16 99/61 95 12/27/18 13:48 12/27/18 13:48 12/27/18 13:48 12/27/18 13:48 12/27/18 13:48 Exam: Gen.: Nonacute distress, alert and oriented 3 ENT: Mucosal membranes moist Respiratory: Lungs are clear to auscultation bilaterally without any wheezing rhonchi or rales Cardiovascular: Normal S1 and S2 regular rate rhythm no murmurs rubs or gallops Abdomen: Soft, nontender and nondistended with positive bowel sounds Extremities: No lower extremity edema Skin: Normal color - Assessment and Plan (1) Cellulitis of left leg Current Visit: Yes Status: Acute Assessment and Plan: Patient presented due to left lower extremity cellulitis and found to have abscess status post I&D by podiatry on 12/19/18 with wound VAC Podiatry with plans to take patient back OR 12/28/18. Intraoperative cultures are positive for K. pneumoniae and E. faecalis. Infectious disease following with recommendations for continue IV vancomycin and IV ceftriaxone. Patient per infectious disease will likely need IV antibiotics for 2-4 weeks after discharge; appreciate recommendations (2) Sepsis Current Visit: Yes Status: Resolved Assessment and Plan: Resolved; continue to monitor (3) COPD (chronic obstructive pulmonary disease) Current Visit: Yes Status: Chronic Assessment and Plan: Continue bronchodilators as needed. (4) Diabetes Current Visit: Yes Status: Chronic Assessment and Plan: Continue basal insulin twice daily and coverage with sliding-scale insulin DVT Prophylaxis: Subcutaneous heparin - Time Spent with Patient Total time spent is greater than 50% in coordination of care (as documented) at patient's floor/unit and/or counseling patient: Internal Medicine: Result - Labs CBC & Chem 7: 12/25/18 06:07 12/27/18 05:16 Labs: BMP 12/27/18 05:16 Sodium 140 Potassium 4.7 Chloride 102 Carbon Dioxide 31 H BUN 21 H Creatinine 0.96 Glucose 104 Calcium 10.0 Consult Discharge Plan - Plan Referrals: Jaz Pascual CNP [Primary Care Provider] - Sarah Almazan CNP [Advanced Practice Nurse] - 01/10/19 1:45 pm Prescriptions: cefTRIAXone [Rocephin] 2,000 mg IVPB DAILY #28 vial (2) Sepsis Qualifiers: Qualified Code(s): A41.9 - Sepsis, unspecified organism (3) COPD (chronic obstructive pulmonary disease) Qualifiers: Qualified Code(s): J44.9 - Chronic obstructive pulmonary disease, unspecified (4) Diabetes Qualifiers: Diabetes mellitus type: type 2 Diabetes mellitus medical terminologist insulin use: without medical terminologist use Diabetes mellitus complication status: without complication Qualified Code(s): E11.9 - Type 2 diabetes mellitus without complications
[2018-12-28] MEDS: *HR* OxyCODONE/APAP 5/325 TABLET PO PRN ×3 (00:36→21:11)
[2018-12-28] MEDS: *HR* HYDROcodone/Acet 5/325 mg TABLET PO PRN ×3 (04:57→23:45)
[2018-12-28] MEDS: *HR* Heparin 5,000 UNIT/ML VIAL SQ SCH ×2 (04:58→17:05)
[2018-12-28] MEDS: Insulin LISPRO 300 UNITS/3 ML VIAL SQ SCH ×4 (08:15→21:12)
[2018-12-28] MEDS: tiZANidine 4 MG TABLET PO SCH ×3 (08:16→21:11)
[2018-12-28] MEDS: Gabapentin 400 MG CAPSULE PO SCH ×3 (08:16→21:11)
[2018-12-28] MEDS: Cholecalciferol (D-3) 1,000 UNIT (25MCG) TABLET PO SCH (08:16)
[2018-12-28] MEDS: Lactobacillus 1 EACH CAP.SPRINK PO SCH ×2 (08:16→21:11)
[2018-12-28] MEDS: amLODIPine 5 MG TABLET PO SCH (08:16)
[2018-12-28] MEDS: Lisinopril 20 MG TABLET PO SCH (08:17)
[2018-12-28] MEDS: Famotidine 20 MG TABLET PO SCH (08:17)
[2018-12-28] MEDS: BuPROPion XL (24 HR) 150 MG TABLET PO SCH (08:17)
[2018-12-28] MEDS: Nicotine 21 MG PATCH.TD24 TD SCH (08:17)
[2018-12-28] MEDS: Tiotropium 18 MCG inhalation IH SCH (08:25)
[2018-12-28] MEDS: Budesonide/Formoterol 160/4.5 1 PUFF INH IH SCH ×2 (08:26→20:18)
[2018-12-28] MEDS ORDERED: *HR* Midazolam HCl 2 MG/2 ML VIAL ONE (08:32)
[2018-12-28] MEDS ORDERED: *HR* Propofol 200 MG/20 ML VIAL IVP ONE (08:32)
[2018-12-28] MEDS ORDERED: *HR* FentaNYL (PF) 100 MCG/2 ML VIAL ONE (08:32)
[2018-12-28] MEDS ORDERED: *HR* Succinylcholine 200 MG/10 ML VIAL IVP ONE (08:37)
[2018-12-28] MEDS ORDERED: Dexamethasone 4 MG/ML VIAL ONE (08:37)
[2018-12-28] MEDS ORDERED: *HR* Rocuronium Bromide 50 MG/5 ML VIAL ONE (08:37)
[2018-12-28] MEDS ORDERED: Lidocaine -MPF 2% 2 ML VIAL ONE (08:37)
[2018-12-28] MEDS ORDERED: Ondansetron 4 MG/2 ML VIAL ONE (08:37)
[2018-12-28] MEDS ORDERED: Albuterol 2.5 MG/3 ML NEBULIZER ONE (08:54)
[2018-12-28] MEDS ORDERED: Ropivicaine 0.25% 20 ml Syringe INTRAART ONE (08:55)
[2018-12-28] MEDS ORDERED: ROPIVACAINE/PF/NS 0.25% 1 EACH SYRINGE INTRAART ONE (09:12)
[2018-12-28] MEDS ORDERED: *HR* OxyCODONE Immed Rel 5 MG TABLET PO PRN (09:31)
[2018-12-28] MEDS ORDERED: Ondansetron 4 MG/2 ML VIAL IVP ONE ×2 (09:31→12:10)
[2018-12-28] MEDS ORDERED: EPHEDrine 50 MG/ML VIAL ONE (09:39)
[2018-12-28] MEDS ORDERED: *HR* PHENYLEPHRINE 1,000 MCG/10 ML SYRINGE IVP ONE (09:46)
--- NOTE | 2018-12-28 10:24 | Internal Med Progress Note ---
Hospitalist Progress Note - Encounter Date of Encounter: 12/28/18 Time of Encounter: 11:00 - Subjective Interval History: Patient is a 53-year-old female who presented due to left lower extremity cellulitis and found to have abscess status post I&D by podiatry on 12/19/18 with wound VAC Plans per podiatry to take patient back to the OR today for I&D - Exam Vitals: Temp Pulse Resp BP Pulse Ox 98.4 F 63 16 121/64 97 12/28/18 06:51 12/28/18 06:51 12/28/18 08:27 12/28/18 06:51 12/28/18 08:27 Exam: Gen.: Nonacute distress, alert and oriented 3 ENT: Mucosal membranes moist Respiratory: Lungs are clear to auscultation bilaterally without any wheezing rhonchi or rales Cardiovascular: Normal S1 and S2 regular rate rhythm no murmurs rubs or gallops Abdomen: Soft, nontender and nondistended with positive bowel sounds Extremities: No lower extremity edema Skin: Normal color - Assessment and Plan (1) Cellulitis of left leg Current Visit: Yes Status: Acute Assessment and Plan: Patient presented due to left lower extremity cellulitis and found to have abscess status post I&D by podiatry on 12/19/18 with wound VAC Intraoperative cultures are positive for K. pneumoniae and E. faecalis. Podiatry with plans to take patient back OR today Infectious disease following with recommendations for continue IV vancomycin and IV ceftriaxone. Patient per infectious disease will likely need IV antibiotics for 2-4 weeks after discharge; appreciate recommendations (2) Sepsis Current Visit: Yes Status: Resolved Assessment and Plan: Resolved; continue to monitor (3) COPD (chronic obstructive pulmonary disease) Current Visit: Yes Status: Chronic Assessment and Plan: Continue bronchodilators as needed. (4) Diabetes Current Visit: Yes Status: Chronic Assessment and Plan: Continue basal insulin twice daily and coverage with sliding-scale insulin DVT Prophylaxis: Subcutaneous heparin - Time Spent with Patient Total time spent is greater than 50% in coordination of care (as documented) at patient's floor/unit and/or counseling patient: Internal Medicine: Result - Labs CBC & Chem 7: 12/28/18 16:00 12/28/18 16:00 Consult Discharge Plan - Plan Referrals: Jaz Pascual CNP [Primary Care Provider] - Tha,Sarah N, NURSING INFORMATICS ANALYST [Advanced Practice Nurse] - 01/10/19 1:45 pm Prescriptions: cefTRIAXone [Rocephin] 2,000 mg IVPB DAILY #28 vial (2) Sepsis Qualifiers: Qualified Code(s): A41.9 - Sepsis, unspecified organism (3) COPD (chronic obstructive pulmonary disease) Qualifiers: Qualified Code(s): J44.9 - Chronic obstructive pulmonary disease, unspecified (4) Diabetes Qualifiers: Diabetes mellitus type: type 2 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
--- NOTE | 2018-12-28 10:45 | Orthopedic Operative Note ---
Date of procedure: 12/28/18 Pre-op diagnosis: #1: Surgical wound left foot and ankle Post-op diagnosis: same Procedure: 12/28/18 10:43 1: Incision debridement multiple planes left foot and ankle, staged procedure #2: Application of PuraPly antimicrobial wound graft, left foot and ankle. #3 application and a shield amniotic graft left ankle #4: Application wound VAC Implants: None Complications: None Anesthesia: local, other (General anesthesia per LMA) Local Anesthetics: Other (Ropivacaine) Surgeon: Mikey Jin Was there an dermatology physician assistant present: No Estimated blood loss (cc): 10 Tourniquet Time (Minutes): 0 Specimen: None Condition: stable Disposition: PACU Procedure in Detail: 12/28/18 10:46 Details in summary of procedure: Patient was brought to surgical suite. Sign in procedure performed. Patient transferred the surgical table positioned properly safely securely. Left foot and ankle elevated on a foam block. No tourniquet used. Anesthetic timeout taken. After smooth induction general anesthesia was achieved per LMA. That appointment delivered patient postoperative analgesia a high ankle block was carried out using local anesthetic block the sural nerve as well as superficial peroneal nerve with ropivacaine no epinephrine. No complications The left foot and ankle was then prepped and draped usual sterile manner. Surgical timeout was taken. The wound measured 16 cm in length 5 cm in width with slight undermining both anterior ankles and the lateral aspect of the fifth metatarsal. A fresh skin edge was obtained throughout the incision using a #15 scalpel blade around the periphery of the incision. All nonviable tissue was surgically excised to the deep fascial layer using a pickup and Metzenbaum. The remaining tissue was debrided with a Veeiponix ultrasonic debrider. We now have a clean granular wound bed. There is undermining outing at the anterior aspect of the left ankle all the extensor retinaculum approximately 5 cm in width and 1.5 cm in length. Undermining Laterally Pl., #5 metatarsal measuring approximately 4 cm in length 2 cm in width. The wound was completely surgically debrided by excisional methods. I also employed a #15 scalpel blade pickup and scissor to remove all devitalized tissue throughout the wound distally medially laterally approximately including the foot and ankle. No purulent drainage was noted no abscess. Satisfied with a clean wound a healed amniotic graft was placed in the undermining of the anterior ankles left foot was then covered with PuraPly Antimicrobial wound matrix, followed by application PRP followed by Adaptic and a wound VAC which was found to function properly. Patient was then extubated and sent to PACU in good condition with vital signs stable. Estimated blood loss less than 10 mL complications encountered none. 01/02/19 20:55
[2018-12-28] MEDS: Albuterol 2.5 MG/3 ML NEBULIZER IH ONE ×2 (10:50→15:18)
[2018-12-28] MEDS ORDERED: *HR* HYDROmorphone (PF) 1 MG/ML SYRINGE ONE (10:51)
[2018-12-28] MEDS ORDERED: *HR* HYDROmorphone (PF) 1 MG/ML SYRINGE IVP ONE (11:05)
--- NOTE | 2018-12-28 11:26 | Anesthesia Evaluation Post Op ---
Date of Encounter: 12/28/18 Time of Encounter: 11:26 - Vital Signs Vital Signs: Vital Signs/O2 Sat/Glucose, Most Recent Temp Pulse Resp BP Pulse Ox 97.8 F 61 16 124/75 95 12/28/18 11:11 12/28/18 11:21 12/28/18 11:21 12/28/18 11:21 12/28/18 11:21 Blood Glucose* 160 - Lungs Lungs: Clear Ascult./Percussion - Airway Airway: Non-obstructed - Cardiovascular Regular Rate - Mental Status Mental Status: Alert & Oriented, Answers Appropriately - Pain Pain Scale: 2 - Nausea Vomiting Nausea Vomiting: Not Present - Hydration Hydration: NPO - Discharge PostOp Status: Transfer Patient to floor
[2018-12-28] MEDS ORDERED: Acetaminophen 325 MG TABLET PO PRN (12:10)
[2018-12-28] MEDS ORDERED: Naloxone 0.4 MG/ML INJ IVP PRN (12:10)
[2018-12-28] MEDS ORDERED: D5% in Water 1,000 ML IVC PRN (12:10)
[2018-12-28] MEDS ORDERED: Ipratropium/Albuterol Neb 3 ML IH PRN (12:10)
[2018-12-28] MEDS ORDERED: *HR* Promethazine 25 MG/ML VIAL IVP PRN (12:10)
[2018-12-28] MEDS ORDERED: *HR* Dextrose 50 % in Water (Syg) 50 ML SYRINGE IVP PRN (12:10)
[2018-12-28] MEDS ORDERED: Dextrose Gel 15 GM/37.5 ML TUBE PO PRN ×2 (12:10)
[2018-12-28] MEDS ORDERED: Preparation H Ointment 30 GM TUBE RC PRN (12:19)
[2018-12-28 16:30] LABS: Basophils # 0.1 K/mcL (0.0-0.2); Basophils % 0.4 %; Eosinophils % 0.2 %; Hematocrit 35.5 % (35.3-44.9); Hemoglobin 10.7 g/dL (11.5-15.4); Immature Granulocytes % 0.5 % (0-4); Lymphocytes # 1.1 K/mcL (0.6-4.6); Lymphocytes % 8.5 %; Mean Corpuscular HGB Conc 30.1 g/dL (31.6-35.5); Mean Corpuscular Hemoglobin 26.7 pg (28.0-33.3); Mean Corpuscular Volume 88.5 fL (83.0-100.0); Monocytes # 0.2 K/mcL (0.0-1.3); Monocytes % 1.8 %; Neutrophils # 11.6 K/mcL (1.6-8.9); Platelet Count 438 K/mcL (140-400); Red Blood Count 4.01 M/mcL (3.82-4.97); Red Cell Distribution Width 14.2 % (11.5-14.5); Segmented Neutrophils % 88.6 %; White Blood Count 13.1 K/mcL (4.3-11.1)
[2018-12-28 16:41] LABS: Calcium 9.3 mg/dL (8.6-10.3); Potassium 5.4 mEq/L (3.5-5.1)
[2018-12-28] MEDS ORDERED: Insulin DETEMIR 100 UNIT/ML X5UNITS SQ SCH (21:00)
[2018-12-28] MEDS: Insulin DETEMIR 100 UNIT/ML X5UNITS SQ SCH (21:11)
[2018-12-29] MEDS: *HR* HYDROcodone/Acet 5/325 mg TABLET PO PRN ×3 (06:01→18:36)
[2018-12-29] MEDS: *HR* Heparin 5,000 UNIT/ML VIAL SQ SCH ×2 (06:01→18:35)
[2018-12-29 06:21] LABS: Basophils # 0.1 K/mcL (0.0-0.2); Basophils % 0.5 %; Eosinophils # 0.1 K/mcL (0.0-0.6); Hematocrit 34.1 % (35.3-44.9); Hemoglobin 10.3 g/dL (11.5-15.4); Immature Granulocytes % 0.5 % (0-4); Lymphocytes # 3.2 K/mcL (0.6-4.6); Lymphocytes % 26.7 %; Mean Corpuscular HGB Conc 30.2 g/dL (31.6-35.5); Mean Corpuscular Hemoglobin 26.3 pg (28.0-33.3); Mean Corpuscular Volume 87.2 fL (83.0-100.0); Mean Platelet Volume 8.7 fL (9.4-12.4); Monocytes # 0.7 K/mcL (0.0-1.3); Monocytes % 5.9 %; Neutrophils # 7.9 K/mcL (1.6-8.9); Platelet Count 400 K/mcL (140-400); Red Blood Count 3.91 M/mcL (3.82-4.97); Red Cell Distribution Width 14.2 % (11.5-14.5); Segmented Neutrophils % 65.4 %; White Blood Count 12.1 K/mcL (4.3-11.1)
[2018-12-29 06:40] LABS: BUN/Creatinine Ratio 28 (6-26); Blood Urea Nitrogen 28 mg/dL (6-20); Calcium 9.3 mg/dL (8.6-10.3); Carbon Dioxide 28 mEq/L (23-29); Chloride 103 mEq/L (98-107); Glucose 221 mg/dL (70-105); Osmolality,Calculated 296 (280-300); Potassium 4.6 mEq/L (3.5-5.1); Sodium 137 mEq/L (136-145); eGFR For African Americans > 60 (> 60); eGFR For Non-African Americans 59 (> 60)
[2018-12-29] MEDS: Tiotropium 18 MCG inhalation IH SCH (07:50)
[2018-12-29] MEDS: Budesonide/Formoterol 160/4.5 1 PUFF INH IH SCH ×2 (07:50→20:29)
--- NOTE | 2018-12-29 08:42 | Infectious Disease Progress No ---
ID Progress Note Date of Encounter: 12/28/18 Time of Encounter: 11:45 - Subjective Subjective: Patient seen and examined. No acute events noted overnight. Postop day 9 from I&D of the left ankle and POD 0 from repeat washout. States overall she feels well. Denies fevers, chills, rigors. Denies chest pain, shortness of breath, or cough. Denies nausea, vomiting, diarrhea, or constipation. Reports one loose stool per day. Denies abdominal pain or urinary complaints. Reports mild pain at the surgical site. Denies oral thrush or skin rashes. - Objective CBC & Chem 7: 12/29/18 06:04 12/29/18 06:04 - Exam Vitals: Temp Pulse Resp BP Pulse Ox 98.2 F 76 16 117/71 95 12/29/18 03:28 12/29/18 03:28 12/29/18 07:52 12/29/18 03:28 12/29/18 07:52 Exam: Head: Atraumatic, normal inspection, normocephalic. Eye: EOMI, PERRLA, no scleral icterus noted. ENT: Mucous membranes moist. No odontogenic infection noted. Neck: Normal inspection, no meningismus. Respiratory: Clear to auscultation. No rales, respiratory distress, rhonchi, or wheezes noted. Cardiovascular: Regular rate and rhythm, S1 and S2 audible. No murmurs, rubs, or gallops. GI: Soft, nondistended, normal bowel sounds. Extremities:No joint swelling, pedal edema, or tenderness noted. Left foot and ankle dressing C/D/I. Neurological: Alert, oriented 3, no focal deficits. Psychiatric: normal affect, normal mood. Skin: Dry, intact, warm. Normal color. No rashes. - Assessment and Plan (1) Sepsis Current Visit: Yes Status: Resolved The patient had 2 sepsis criteria on admission. Likely secondary to left lower extremity cellulitis and abscess. White blood cell count normal. Afebrile overnight. Tachycardia resolved. Blood cultures drawn 12/16/18 are negative 2 sets. Qualifiers: Qualified Code(s): A41.9 - Sepsis, unspecified organism SNOMED Code(s): 19906074 (2) Cellulitis of left leg Current Visit: Yes Status: Acute Location: Left lower extremity. Causative organism: Group B strep and Klebsiella pneumoniae and E. faecalis. Etiology: Unclear. The patient is unaware of any trauma to the leg. She does report that [place] to her onset of symptoms, but denies any known insect or animal bites. Purulent. Failed outpatient oral antibiotics (doxycycline). CT of the left lower extremity 12/16/18 showed diffuse subcutaneous edema involving the imaged lower leg and foot. No subcutaneous gas or organized drainable fluid collection was identified. No acute osseous abnormality identified. No CT evidence for osteomyelitis. CK level was normal. Repeat CT of the left lower extremity 12/18/18 shows a shallow soft tissue ulceration along the anterior aspect of the ankle with suspected 10 x 10 x 9 mm abscess or focal phlegmon is changed is superior to the area of the ulceration. Extensive subcutaneous edema and skin thickening consistent with cellulitis noted. No evidence of deep soft tissue infection, or acute bone or joint abnormality. Podiatry consulted. Status post I&D 12/19/[address] Jin. Intraoperative cultures are positive for K. pneumoniae and E. faecalis. Clinically improved. Currently on Vanc, Rocephin. SNOMED Code(s): 278757542 (3) Abscess Current Visit: Yes Status: Acute Location: Anterior aspect of the left ankle. Causative organism: Klebsiella pneumoniae, group B streptococcus and ampicillin sensitive Enterococcus faecalis. Podiatry consult. Status post I&D 12/19/[address] Jin. Status post repeat washout this morning. Currently on Vanc, Rocephin. SNOMED Code(s): 008974482 (4) COPD (chronic obstructive pulmonary disease) Current Visit: Yes Status: Chronic Qualifiers: Qualified Code(s): J44.9 - Chronic obstructive pulmonary disease, unspecified SNOMED Code(s): 25997328 (5) Diabetes Current Visit: Yes Status: Chronic Uncontrolled. Hemoglobin A1c 12.5%. Recommend aggressive glucose monitoring and control to promote wound healing and prevent reinfection. Management per the primary team. 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 SNOMED Code(s): 25753967 - Recommendations Recommendations: Wound care per podiatry. Diabetes management per the primary team. Continue Rocephin 2 grams IV daily. Continue Vancomycin IV. Pharmacy to dose. Goal trough ~15. Duration of treatment depends on the clinical picture. Will discuss with Podiatry, but will likely need 2-4 weeks of IV antibiotics based on the extent of the infection. Will plan to follow how the patient does clinically and her inflammatory markers and decide from there. Monitor renal function for drug toxicity and dose adjust antibiotics. visitor services associate to assist with discharge planning. Recommend rehab placement on discharge. Will need weekly CBC, BUN/Cr, ESR, and CRP. Will need weekly IV care per protocol. Follow up with ID 01/10/19 at 1345. Consult Discharge Plan - Plan Referrals: Jaz Pascual CNP [Primary Care Provider] - Sarah Almazan CNP [Advanced Practice Nurse] - 01/10/19 1:45 pm Prescriptions: cefTRIAXone [Rocephin] 2,000 mg IVPB DAILY #28 vial
[2018-12-29] MEDS: Lactobacillus 1 EACH CAP.SPRINK PO SCH ×2 (08:45→20:46)
[2018-12-29] MEDS: Lisinopril 20 MG TABLET PO SCH (08:46)
[2018-12-29] MEDS: Cholecalciferol (D-3) 1,000 UNIT (25MCG) TABLET PO SCH (08:46)
[2018-12-29] MEDS: tiZANidine 4 MG TABLET PO SCH ×3 (08:46→20:46)
[2018-12-29] MEDS: BuPROPion XL (24 HR) 150 MG TABLET PO SCH (08:46)
[2018-12-29] MEDS: Famotidine 20 MG TABLET PO SCH (08:46)
[2018-12-29] MEDS: Gabapentin 400 MG CAPSULE PO SCH ×3 (08:46→20:46)
[2018-12-29] MEDS: Insulin DETEMIR 100 UNIT/ML X5UNITS SQ SCH ×2 (08:47→20:46)
[2018-12-29] MEDS: Nicotine 21 MG PATCH.TD24 TD SCH (08:47)
[2018-12-29] MEDS: amLODIPine 5 MG TABLET PO SCH (08:47)
[2018-12-29] MEDS: Insulin LISPRO 300 UNITS/3 ML VIAL SQ SCH ×4 (08:48→20:47)
[2018-12-29] MEDS ORDERED: Insulin DETEMIR 100 UNIT/ML X5UNITS SQ SCH (09:00)
[2018-12-29] MEDS: *HR* OxyCODONE/APAP 5/325 TABLET PO PRN ×3 (09:02→23:07)
--- NOTE | 2018-12-29 09:23 | Podiatry Progress Note ---
Date of Encounter: 12/29/18 Time of Encounter: 08:30 - Assessment and Plan (1) Abscess Current Visit: Yes Status: Acute Assessment: -Post op day #1 1: Incision debridement multiple planes left foot and ankle, staged procedure #2: Application of PuraPly antimicrobial wound graft, left foot and ankle. #3 application and a shield amniotic graft left ankle#4: Application wound VAC by Dr. Jin on 12/28/2018. -Surgical wound with beefy red base, sutures intact proximal and distal with edges coapting, no drainage noted, she did have less than 50cc of serosang drainage in wound vac container -Erythema and edema to foot and anterior lower extremity improving -WBC 12.1 -Wound cultures final for Klebsiella pneu.ssp pneumoniae and Enterococcus faecalis - ID following -Anaerobic cultures final no anaerobes recovered -Blood cultures final for no growth Plan: -Thoroughly irrigated with sterile saline and pat dry -The graft is no longer noted to site -Wound vac placed. Black granulofoam was placed, draped with tegaderm in usual fashion, bridge to medial aspect of leg. The tubing was off loaded using ABD pads and Kerlix, secured with MAYA. Good seal was noted and suction was at 100 mmHG low intensity continuous. -Orders for wound vac changes placed. -Okay to d/c to [facility]. -[facility] up [facility] , schedule appointment prior to discharge (2) Cellulitis of left leg Current Visit: Yes Status: Acute Assessment: -Cellulitis LLE/foot improving -Edema improved Plan: -ID following for ATB management Subjective Interval history: Post op day #1 1: Incision debridement multiple planes left foot and ankle, staged procedure #2: Application of PuraPly antimicrobial wound graft, left foot and ankle. #3 application and a shield amniotic graft left ankle#4: Application wound VAC by Dr. Jin on 12/28/2018. Ten days ago patient underwent #1: Incision and drainage left foot and ankle multiple planes by Dr. Jin on 12/19/2018 Patient is alert and oriented x 3, sitting up in bed eating breakfast. No acute distress noted. She denies any chest pain, shortness of breath, or calf pain. She denies any fever, chills, or n/v/d. Patient does report pain to left foot. Patient does have a dressing noted to left lower extremity that is dry and intact. It was reported that her wound vac and dressing along with graft came out off in the middle of the night, unclear to how this happened. Patient reports she remembers itching her leg with her other foot. Objective - Vital Signs Vital Signs: Vital Signs Temp Pulse Resp BP Pulse Ox 12/29/18 07:52 16 95 12/29/18 03:28 98.2 F 76 17 117/71 94 12/29/18 00:17 98.2 F 62 15 108/63 94 12/28/18 20:20 16 96 12/28/18 18:48 98.7 F 69 16 121/71 94 12/28/18 16:47 98.2 F 69 18 105/58 93 12/28/18 12:57 98.1 F 69 18 108/62 93 12/28/18 12:22 98.3 F 64 16 98/64 94 12/28/18 12:00 97.1 F L 66 18 111/71 96 12/28/18 11:31 61 16 121/62 93 12/28/18 11:21 61 16 124/75 95 12/28/18 11:11 97.8 F 61 14 119/69 96 12/28/18 11:01 68 18 113/65 93 12/28/18 10:51 68 16 105/67 95 12/28/18 10:41 97.9 F 68 18 112/78 96 Intake and Output 12/28/18 12/29/18 12/29/18 23:59 07:59 15:59 Intake Total 480 / 1210 100 / 100 Balance 480 / 1200 100 / 100 Intake: IV Fluids 100 / 100 Vancocin 1,250 MG In 0.9 % 100 / 100 Sodium Chloride 250 ML @ 166.67 mls/hr IVPB Q12H [facility] Rx#: [id number] Oral 480 / 960 Other: Meal Dinner Percent of Meal Consumed 100% # Voids 2 Blood Glucose* 243 - Exam Exam: Constitutional: Alert and oriented x 3. Well nourished. No acute distress noted Vascular: 2/4 DP/PT LLE, CFT <3 sec to all digits LLE, warm to warm from tibia to toes LLE, erythema previously noted to left leg and foot has improved substantially, minimal edema. No pain with calf squeeze. Neurological: Sensation to touch, normal plantar response Dermatological: Surgical wound with beefy red base, minimal erythema and edema, no drainage noted, no lymphangitis, sutures intact distal and proximal with edges coapting. Musculoskeletal: 4/5 muscle strength and normal tone LLE. - Lab Result Diagrams: 12/29/18 06:04 12/29/18 06:04 Labs: Abnormal lab results WBC 12.1 K/mcL (4.3-11.1) H 12/29/18 06:04 RBC 3.50 M/mcL (3.82-4.97) L 12/21/18 03:12 Hgb 10.3 g/dL (11.5-15.4) L 12/29/18 06:04 Hct 34.1 % (35.3-44.9) L 12/29/18 06:04 MCV 82.4 fL (83.0-100.0) L 12/18/18 00:11 MCH 26.3 pg (28.0-33.3) L 12/29/18 06:04 MCHC 30.2 g/dL (31.6-35.5) L 12/29/18 06:04 Plt Count 438 K/mcL (140-400) H 12/28/18 16:00 MPV 8.7 fL (9.4-12.4) L 12/29/18 06:04 11.6 K/mcL (1.6-8.9) H 12/28/18 16:00 1.6 K/mcL (0.0-1.3) H 12/17/18 04:14 Present (Not Present) A 12/21/18 03:12 ESR 65 mm/hr (0-15) H 12/18/18 00:11 Sodium 133 mEq/L (136-145) L 12/28/18 16:00 Potassium 5.4 mEq/L (3.5-5.1) H 12/28/18 16:00 Chloride 108 mEq/L (98-107) H 12/21/18 03:12 Carbon Dioxide 31 mEq/L (23-29) H 12/27/18 05:16 BUN 28 mg/dL (6-20) H 12/29/18 06:04 1.26 mg/dL (0.60-1.20) H 12/28/18 16:00 Est GFR ( Amer) 54 (> 60) L 12/28/18 16:00 Est GFR (Non-Af Amer) 59 (> 60) L 12/29/18 06:04 28 (6-26) H 12/29/18 06:04 Glucose 221 mg/dL (70-105) H 12/29/18 06:04 POC Glucose 243 mg/dL (70-99) H 12/28/18 20:03 12.5 % (-5.6) H 12/16/18 13:25 Calcium 8.2 mg/dL (8.6-10.3) L 12/21/18 03:12 Magnesium 1.4 mg/dL (1.6-2.6) L 12/17/18 04:14 14 Units/L (30-223) L 12/16/18 13:00 259 mg/L (Less than 10) H 12/18/18 00:11 Vancomycin Trough 14 mcg/mL (5-10) H 12/26/18 23:14 Consult Discharge Plan - Plan Referrals: Jaz Pascual, ENERGY SCHEDULER [Primary Care Provider] - Sarah Almazan CNP [Advanced Practice Nurse] - 01/10/19 1:45 pm Prescriptions: cefTRIAXone [Rocephin] 2,000 mg IVPB DAILY #28 vial
[2018-12-29] MEDS: cefTRIAXone 2,000 MG in Water for inj. (sterile) 20 ML IVP SCH (12:17)
--- NOTE | 2018-12-29 12:56 | Infectious Disease Progress No ---
ID Progress Note Date of Encounter: 12/29/18 Time of Encounter: 11:10 - Subjective Subjective: Patient seen and examined. No acute events noted overnight. Postop day 10 from I&D of the left ankle and POD 1 from repeat washout. States overall she feels well. Denies fevers, chills, rigors. Denies chest pain, shortness of breath, or cough. Denies nausea, vomiting, diarrhea, or constipation. Reports one loose stool per day. Denies abdominal pain or urinary complaints. Reports mild pain at the surgical site. Denies oral thrush or skin rashes. - Objective CBC & Chem 7: 12/29/18 06:04 12/29/18 06:04 - Exam Vitals: Temp Pulse Resp BP Pulse Ox 98.3 F 66 16 121/71 95 12/29/18 07:00 12/29/18 07:00 12/29/18 07:52 12/29/18 07:00 12/29/18 07:52 Exam: Head: Atraumatic, normal inspection, normocephalic. Eye: EOMI, PERRLA, no scleral icterus noted. ENT: Mucous membranes moist. No odontogenic infection noted. Neck: Normal inspection, no meningismus. Respiratory: Clear to auscultation. No rales, respiratory distress, rhonchi, or wheezes noted. Cardiovascular: Regular rate and rhythm, S1 and S2 audible. No murmurs, rubs, or gallops. GI: Soft, nondistended, normal bowel sounds. Extremities:No joint swelling, pedal edema, or tenderness noted. Left foot and ankle dressing C/D/I. No drainage noted in the wound VAC canister. Neurological: Alert, oriented 3, no focal deficits. Psychiatric: normal affect, normal mood. Skin: Dry, intact, warm. Normal color. No rashes. - Assessment and Plan (1) Sepsis Current Visit: Yes Status: Resolved The patient had 2 sepsis criteria on admission. Likely secondary to left lower extremity cellulitis and abscess. White blood cell count normal. Afebrile overnight. Tachycardia resolved. Blood cultures drawn 12/16/18 are negative 2 sets. Qualifiers: Qualified Code(s): A41.9 - Sepsis, unspecified organism SNOMED Code(s): 26289099 (2) Cellulitis of left leg Current Visit: Yes Status: Acute Location: Left lower extremity. Causative organism: Group B strep and Klebsiella pneumoniae and E. faecalis. Etiology: Unclear. The patient is unaware of any trauma to the leg. She does report that [place] to her onset of symptoms, but denies any known insect or animal bites. Purulent. Failed outpatient oral antibiotics (doxycycline). CT of the left lower extremity 12/16/18 showed diffuse subcutaneous edema involving the imaged lower leg and foot. No subcutaneous gas or organized drainable fluid collection was identified. No acute osseous abnormality identified. No CT evidence for osteomyelitis. CK level was normal. Repeat CT of the left lower extremity 12/18/18 shows a shallow soft tissue ulceration along the anterior aspect of the ankle with suspected 10 x 10 x 9 mm abscess or focal phlegmon is changed is superior to the area of the ulceration. Extensive subcutaneous edema and skin thickening consistent with cellulitis noted. No evidence of deep soft tissue infection, or acute bone or joint abnormality. Podiatry consulted. Status post I&D 12/19/[address] Jin. Intraoperative cultures are positive for K. pneumoniae and E. faecalis. Status post repeat washout 12/28/[address] Jin. Clinically improved. Currently on Vanc, Rocephin. SNOMED Code(s): 214515192 (3) Abscess Current Visit: Yes Status: Acute Location: Anterior aspect of the left ankle. Causative organism: Klebsiella pneumoniae, group B streptococcus and ampicillin sensitive Enterococcus faecalis. Podiatry consult. Status post I&D 12/19/[address] Jin. Status post repeat washout 12/28/18. Currently on Vanc, Rocephin. SNOMED Code(s): 283129793 (4) COPD (chronic obstructive pulmonary disease) Current Visit: Yes Status: Chronic Qualifiers: Qualified Code(s): J44.9 - Chronic obstructive pulmonary disease, unspecified SNOMED Code(s): 44620287 (5) Diabetes Current Visit: Yes Status: Chronic Uncontrolled. Hemoglobin A1c 12.5%. Recommend aggressive glucose monitoring and control to promote wound healing and prevent reinfection. Management per the primary team. Qualifiers: Diabetes mellitus type: type 2 Diabetes mellitus mcfp insulin use: without mcfp use Diabetes mellitus complication status: without complication Qualified Code(s): E11.9 - Type 2 diabetes mellitus without complications SNOMED Code(s): 91249963 (6) Penicillin allergy Current Visit: Yes Status: Acute Reports anaphylactic reaction to penicillin when taken 30 years ago. SNOMED Code(s): 51234372 - Recommendations Recommendations: Wound care per podiatry. Diabetes management per the primary team. Continue Rocephin 2 grams IV daily. Continue Vancomycin IV. Pharmacy to dose. Goal trough ~15. Duration of treatment depends on the clinical picture. Will discuss with Podiat ry, but will likely need 2-4 weeks of IV antibiotics based on the extent of the infection. Will plan to follow how the patient does clinically and her inflammatory markers and decide from there. Monitor renal function for drug toxicity and dose adjust antibiotics. donor services specialist to assist with discharge planning. Recommend rehab placement on discharge. Will need weekly CBC, BUN/Cr, ESR, and CRP. Will need weekly IV care per protocol. Follow up with ID 01/10/19 at 1345. Consult Discharge Plan - Plan Referrals: Jaz Pascual CNP [Primary Care Provider] - Sarah Almazan CNP [Advanced Practice Nurse] - 01/10/19 1:45 pm Prescriptions: cefTRIAXone [Rocephin] 2,000 mg IVPB DAILY #28 vial - Attending Attestation I have personally performed a face to face evaluation on this patient. I have reviewed and agree with the care plan. History and Exam by me shows: Assessment and plan: 1.Left foot abscess noted on the CT scan. Causative organism group B streptococcus and klebsiella pneumoniae 2.sepsis 3.COPD 4.DM 2 5.PCN allergies 6.Concern for IV drug use Recommendations: Wound care per podiatry. Diabetes management per the primary team. Continue Rocephin 2 grams IV daily. Continue Vancomycin IV. Pharmacy to dose. Goal trough ~15. Duration of treatment depends on the clinical picture. Will discuss with Podiatry, but will likely need 2-4 weeks of IV antibiotics based on the extent of the infection. Will plan to follow how the patient does clinically and her inflammatory markers and decide from there. Monitor renal function for drug toxicity and dose adjust antibiotics. donor services specialist to assist with discharge planning. Recommend rehab placement on discharge. Will need weekly CBC, BUN/Cr, ESR, and CRP. Will need weekly IV care per protocol. Follow up with ID 01/10/19 at 1345.
[2018-12-29] MEDS ORDERED: Ketorolac 30 MG/ML VIAL IVP ONE (15:35)
--- NOTE | 2018-12-29 20:06 | Internal Med Progress Note ---
Hospitalist Progress Note - Encounter Date of Encounter: 12/29/18 Time of Encounter: 11:00 - Subjective Interval History: Patient is a 53-year-old female who presented due to left lower extremity cellulitis and found to have abscess status post I&D by podiatry on 12/19/18 with wound VAC Plans per podiatry to take patient back to the OR yesterday for I&D - Exam Vitals: Temp Pulse Resp BP Pulse Ox 98.9 F 62 15 95/59 95 12/29/18 19:00 12/29/18 19:00 12/29/18 19:00 12/29/18 19:00 12/29/18 19:00 Exam: Gen.: Nonacute distress, alert and oriented 3 ENT: Mucosal membranes moist Respiratory: Lungs are clear to auscultation bilaterally without any wheezing rhonchi or rales Cardiovascular: Normal S1 and S2 regular rate rhythm no murmurs rubs or gallops Abdomen: Soft, nontender and nondistended with positive bowel sounds Extremities: No lower extremity edema Skin: Normal color - Assessment and Plan (1) Cellulitis of left leg Current Visit: Yes Status: Acute Assessment and Plan: Patient presented due to left lower extremity cellulitis and found to have abscess status post I&D by podiatry on 12/19/18 with wound VAC Intraoperative cultures are positive for K. pneumoniae and E. faecalis. Podiatry with plans to take patient back OR yesterday Infectious disease following with recommendations for continue IV vancomycin and IV ceftriaxone. Patient per infectious disease will likely need IV antibiotics for 2-4 weeks after discharge; appreciate recommendations (2) Sepsis Current Visit: Yes Status: Resolved Assessment and Plan: Resolved; continue to monitor (3) COPD (chronic obstructive pulmonary disease) Current Visit: Yes Status: Chronic Assessment and Plan: Continue bronchodilators as needed. (4) Diabetes Current Visit: Yes Status: Chronic Assessment and Plan: Continue basal insulin twice daily and coverage with sliding-scale insulin DVT Prophylaxis: Subcutaneous heparin - Time Spent with Patient Total time spent is greater than 50% in coordination of care (as documented) at patient's floor/unit and/or counseling patient: Internal Medicine: Result - Labs CBC & Chem 7: 12/29/18 06:04 12/29/18 06:04 Labs: Short CBC 12/29/18 Range/Units 06:04 WBC 12.1 H (4.3-11.1) K/mcL Hgb 10.3 L (11.5-15.4) g/dL Hct 34.1 L (35.3-44.9) % Plt Count 400 (140-400) K/mcL Neutrophils # 7.9 (1.6-8.9) K/mcL [facility] 12/29/18 06:04 Sodium 137 Potassium 4.6 Chloride 103 Carbon Dioxide 28 BUN 28 H Creatinine 0.99 Glucose 221 H Calcium 9.3 Consult Discharge Plan - Plan Referrals: Jaz Pascual CNP [Primary Care Provider] - Sarah Almazan CNP [Advanced Practice Nurse] - 01/10/19 1:45 pm Prescriptions: cefTRIAXone [Rocephin] 2,000 mg IVPB DAILY #28 vial (2) Sepsis Qualifiers: Qualified Code(s): A41.9 - Sepsis, unspecified organism (3) COPD (chronic obstructive pulmonary disease) Qualifiers: Qualified Code(s): J44.9 - Chronic obstructive pulmonary disease, unspecified (4) Diabetes Qualifiers: Diabetes mellitus type: type 2 Diabetes mellitus intermediate teacher insulin use: without intermediate teacher use Diabetes mellitus complication status: without complication Qualified Code(s): E11.9 - Type 2 diabetes mellitus without complications
[2018-12-30] MEDS: *HR* Heparin 5,000 UNIT/ML VIAL SQ SCH ×2 (05:15→17:27)
[2018-12-30] MEDS: *HR* OxyCODONE/APAP 5/325 TABLET PO PRN ×3 (05:16→17:24)
[2018-12-30 05:37] LABS: Basophils # 0.1 K/mcL (0.0-0.2); Basophils % 0.8 %; Eosinophils # 0.3 K/mcL (0.0-0.6); Eosinophils % 3.1 %; Hematocrit 33.9 % (35.3-44.9); Hemoglobin 10.3 g/dL (11.5-15.4); Immature Granulocytes % 0.3 % (0-4); Lymphocytes # 4.8 K/mcL (0.6-4.6); Lymphocytes % 48.4 %; Mean Corpuscular HGB Conc 30.4 g/dL (31.6-35.5); Mean Corpuscular Hemoglobin 26.4 pg (28.0-33.3); Mean Corpuscular Volume 86.9 fL (83.0-100.0); Mean Platelet Volume 8.8 fL (9.4-12.4); Monocytes # 0.7 K/mcL (0.0-1.3); Monocytes % 7.3 %; Platelet Count 379 K/mcL (140-400); Red Cell Distribution Width 14.3 % (11.5-14.5); Segmented Neutrophils % 40.1 %
[2018-12-30 05:56] LABS: BUN/Creatinine Ratio 30 (6-26); Blood Urea Nitrogen 31 mg/dL (6-20); Calcium 9.4 mg/dL (8.6-10.3); Carbon Dioxide 27 mEq/L (23-29); Chloride 104 mEq/L (98-107); Glucose 99 mg/dL (70-105); Osmolality,Calculated 289 (280-300); Potassium 4.8 mEq/L (3.5-5.1); Sodium 136 mEq/L (136-145); eGFR For African Americans > 60 (> 60); eGFR For Non-African Americans 57 (> 60)
[2018-12-30] MEDS: Nicotine 21 MG PATCH.TD24 TD SCH (07:39)
[2018-12-30] MEDS: Insulin DETEMIR 100 UNIT/ML X5UNITS SQ SCH ×2 (07:40→21:02)
[2018-12-30] MEDS: Lactobacillus 1 EACH CAP.SPRINK PO SCH ×2 (07:40→21:01)
[2018-12-30] MEDS: Cholecalciferol (D-3) 1,000 UNIT (25MCG) TABLET PO SCH (07:41)
[2018-12-30] MEDS: Famotidine 20 MG TABLET PO SCH (07:41)
[2018-12-30] MEDS: amLODIPine 5 MG TABLET PO SCH (07:41)
[2018-12-30] MEDS: Gabapentin 400 MG CAPSULE PO SCH ×3 (07:41→21:01)
[2018-12-30] MEDS: tiZANidine 4 MG TABLET PO SCH ×3 (07:42→21:01)
[2018-12-30] MEDS: BuPROPion XL (24 HR) 150 MG TABLET PO SCH (07:42)
[2018-12-30] MEDS: Lisinopril 20 MG TABLET PO SCH (07:42)
[2018-12-30] MEDS: *HR* HYDROcodone/Acet 5/325 mg TABLET PO PRN ×3 (07:48→21:01)
[2018-12-30] MEDS: Budesonide/Formoterol 160/4.5 1 PUFF INH IH SCH ×2 (07:51→20:12)
[2018-12-30] MEDS: Tiotropium 18 MCG inhalation IH SCH (07:52)
[2018-12-30] MEDS: Insulin LISPRO 300 UNITS/3 ML VIAL SQ SCH ×4 (08:10→21:00)
[2018-12-30] MEDS: cefTRIAXone 2,000 MG in Water for inj. (sterile) 20 ML IVP SCH (11:31)
--- NOTE | 2018-12-30 11:58 | Internal Med Progress Note ---
Hospitalist Progress Note - Encounter Date of Encounter: 12/30/18 Time of Encounter: 11:00 - Subjective Interval History: Patient is a 53-year-old female who presented due to left lower extremity cellulitis and found to have abscess status post I&D by podiatry on 12/19/18 and 12/28/18 with wound VAC Patient now awaiting placement to [facility] facility for strengthening conditioning - Exam Vitals: Temp Pulse Resp BP Pulse Ox 98.3 F 46 16 124/86 93 12/30/18 08:03 12/30/18 08:03 12/30/18 08:03 12/30/18 08:03 12/30/18 08:03 Exam: Gen.: Nonacute distress, alert and oriented 3 ENT: Mucosal membranes moist Respiratory: Lungs are clear to auscultation bilaterally without any wheezing rhonchi or rales Cardiovascular: Normal S1 and S2 regular rate rhythm no murmurs rubs or gallops Abdomen: Soft, nontender and nondistended with positive bowel sounds Extremities: No lower extremity edema Skin: Normal color - Assessment and Plan (1) Goals of care, counseling/discussion Current Visit: Yes Status: Acute Assessment and Plan: Patient now awaiting placement to [facility] facility for strengthening conditioning (2) Cellulitis of left leg Current Visit: Yes Status: Acute Assessment and Plan: Patient presented due to left lower extremity cellulitis and found to have abscess status post I&D by podiatry on 12/19/18 and 12/28/18 with wound VAC Intraoperative cultures are positive for K. pneumoniae and E. faecalis. Infectious disease following with recommendations for continue IV vancomycin and IV ceftriaxone. Patient per infectious disease will likely need IV antibiotics for 2-4 weeks after discharge; appreciate recommendations (3) Sepsis Current Visit: Yes Status: Resolved Assessment and Plan: Resolved; continue to monitor (4) COPD (chronic obstructive pulmonary disease) Current Visit: Yes Status: Chronic Assessment and Plan: Continue bronchodilators as needed. (5) Diabetes Current Visit: Yes Status: Chronic Assessment and Plan: Continue basal insulin twice daily and coverage with sliding-scale insulin DVT Prophylaxis: Subcutaneous heparin - Time Spent with Patient Total time spent is greater than 50% in coordination of care (as documented) at patient's floor/unit and/or counseling patient: Internal Medicine: Result - Labs CBC & Chem 7: 12/30/18 05:21 12/30/18 05:21 Labs: Short CBC 12/30/18 Range/Units 05:21 WBC 10.0 (4.3-11.1) K/mcL Hgb 10.3 L (11.5-15.4) g/dL Hct 33.9 L (35.3-44.9) % Plt Count 379 (140-400) K/mcL Neutrophils # 4.0 (1.6-8.9) K/mcL BMP 12/30/18 05:21 Sodium 136 Potassium 4.8 Chloride 104 Carbon Dioxide 27 BUN 31 H Creatinine 1.02 Glucose 99 Calcium 9.4 Consult Discharge Plan - Plan Referrals: Jaz Pascual CNP [Primary Care Provider] - Sarah Almazan CNP [Advanced Practice Nurse] - 01/10/19 1:45 pm Prescriptions: cefTRIAXone [Rocephin] 2,000 mg IVPB DAILY #28 vial ____ (3) Sepsis Qualifiers: Qualified Code(s): A41.9 - Sepsis, unspecified organism (4) COPD (chronic obstructive pulmonary disease) Qualifiers: Qualified Code(s): J44.9 - Chronic obstructive pulmonary disease, unspecified (5) Diabetes Qualifiers: Diabetes mellitus type: type 2 Diabetes mellitus custodial insulin use: without custodial use Diabetes mellitus complication status: without complication Qualified Code(s): E11.9 - Type 2 diabetes mellitus without complications
[2018-12-31] MEDS: *HR* OxyCODONE/APAP 5/325 TABLET PO PRN ×4 (00:12→20:44)
[2018-12-31] MEDS: *HR* HYDROcodone/Acet 5/325 mg TABLET PO PRN ×4 (05:28→23:32)
[2018-12-31] MEDS: *HR* Heparin 5,000 UNIT/ML VIAL SQ SCH ×2 (05:28→17:40)
[2018-12-31 05:54] LABS: Basophils # 0.1 K/mcL (0.0-0.2); Basophils % 0.8 %; Eosinophils # 0.4 K/mcL (0.0-0.6); Eosinophils % 4.6 %; Hematocrit 35.3 % (35.3-44.9); Hemoglobin 10.8 g/dL (11.5-15.4); Immature Granulocytes % 0.3 % (0-4); Lymphocytes # 3.6 K/mcL (0.6-4.6); Lymphocytes % 45.8 %; Mean Corpuscular HGB Conc 30.6 g/dL (31.6-35.5); Mean Corpuscular Hemoglobin 26.7 pg (28.0-33.3); Mean Corpuscular Volume 87.2 fL (83.0-100.0); Mean Platelet Volume 8.9 fL (9.4-12.4); Monocytes # 0.6 K/mcL (0.0-1.3); Monocytes % 7.2 %; Neutrophils # 3.3 K/mcL (1.6-8.9); Platelet Count 368 K/mcL (140-400); Red Blood Count 4.05 M/mcL (3.82-4.97); Red Cell Distribution Width 14.3 % (11.5-14.5); Segmented Neutrophils % 41.3 %; White Blood Count 7.9 K/mcL (4.3-11.1)
[2018-12-31 06:12] LABS: BUN/Creatinine Ratio 31 (6-26); Blood Urea Nitrogen 29 mg/dL (6-20); Calcium 9.7 mg/dL (8.6-10.3); Carbon Dioxide 28 mEq/L (23-29); Chloride 103 mEq/L (98-107); Glucose 136 mg/dL (70-105); Osmolality,Calculated 296 (280-300); Potassium 4.9 mEq/L (3.5-5.1); Sodium 139 mEq/L (136-145); eGFR For African Americans > 60 (> 60); eGFR For Non-African Americans > 60 (> 60)
[2018-12-31] MEDS: Insulin LISPRO 300 UNITS/3 ML VIAL SQ SCH ×4 (07:39→20:45)
[2018-12-31] MEDS: Nicotine 21 MG PATCH.TD24 TD SCH (07:39)
[2018-12-31] MEDS: Lactobacillus 1 EACH CAP.SPRINK PO SCH ×2 (07:40→20:45)
[2018-12-31] MEDS: Insulin DETEMIR 100 UNIT/ML X5UNITS SQ SCH ×2 (07:41→21:08)
[2018-12-31] MEDS: Gabapentin 400 MG CAPSULE PO SCH ×3 (07:41→20:44)
[2018-12-31] MEDS: amLODIPine 5 MG TABLET PO SCH (07:42)
[2018-12-31] MEDS: Cholecalciferol (D-3) 1,000 UNIT (25MCG) TABLET PO SCH (07:42)
[2018-12-31] MEDS: Famotidine 20 MG TABLET PO SCH (07:42)
[2018-12-31] MEDS: tiZANidine 4 MG TABLET PO SCH ×3 (07:43→20:44)
[2018-12-31] MEDS: BuPROPion XL (24 HR) 150 MG TABLET PO SCH (07:43)
[2018-12-31] MEDS: Lisinopril 20 MG TABLET PO SCH (07:46)
[2018-12-31] MEDS: Budesonide/Formoterol 160/4.5 1 PUFF INH IH SCH ×2 (07:48→19:48)
[2018-12-31] MEDS: Tiotropium 18 MCG inhalation IH SCH (07:48)
--- NOTE | 2018-12-31 10:55 | Internal Med Progress Note ---
Hospitalist Progress Note - Encounter Date of Encounter: 12/31/18 Time of Encounter: 11:00 - Subjective Interval History: Patient is a 53-year-old female who presented due to left lower extremity cellulitis and found to have abscess status post I&D by podiatry on 12/19/18 and 12/28/18 with wound VAC Patient awaiting placement to [facility] for [facility] conditioning - Exam Vitals: Temp Pulse Resp BP Pulse Ox 97.9 F 59 16 117/77 96 12/31/18 07:27 12/31/18 07:27 12/31/18 07:48 12/31/18 07:27 12/31/18 07:48 Exam: Gen.: Nonacute distress, alert and oriented 3 ENT: Mucosal membranes moist Respiratory: Lungs are clear to auscultation bilaterally without any wheezing rhonchi or rales Cardiovascular: Normal S1 and S2 regular rate rhythm no murmurs rubs or gallops Abdomen: Soft, nontender and nondistended with positive bowel sounds Extremities: No lower extremity edema Skin: Normal color - Assessment and Plan (1) Goals of care, counseling/discussion Current Visit: Yes Status: Acute Assessment and Plan: Patient awaiting placement to [facility] facility for strengthening condi tioning (2) Cellulitis of left leg Current Visit: Yes Status: Acute Assessment and Plan: Patient presented due to left lower extremity cellulitis and found to have abscess status post I&D by podiatry on 12/19/18 and 12/28/18 with wound VAC Intraoperative cultures are positive for K. pneumoniae and E. faecalis. Infectious disease following with recommendations for continue IV vancomycin and IV ceftriaxone. Patient per infectious disease will likely need IV antibiotics for 2-4 weeks after discharge; appreciate recommendations (3) Sepsis Current Visit: Yes Status: Resolved Assessment and Plan: Resolved; continue to monitor (4) COPD (chronic obstructive pulmonary disease) Current Visit: Yes Status: Chronic Assessment and Plan: Continue bronchodilators as needed. (5) Diabetes Current Visit: Yes Status: Chronic Assessment and Plan: Continue basal insulin twice daily and coverage with sliding-scale insulin DVT Prophylaxis: Subcutaneous heparin - Time Spent with Patient Total time spent is greater than 50% in coordination of care (as documented) at patient's floor/unit and/or counseling patient: Internal Medicine: Result - Labs CBC & Chem 7: 12/31/18 05:35 12/31/18 05:35 Labs: Short CBC 12/31/18 Range/Units 05:35 WBC 7.9 (4.3-11.1) K/mcL Hgb 10.8 L (11.5-15.4) g/dL Hct 35.3 (35.3-44.9) % Plt Count 368 (140-400) K/mcL Neutrophils # 3.3 (1.6-8.9) K/mcL BMP 12/31/18 05:35 Sodium 139 Potassium 4.9 Chloride 103 Carbon Dioxide 28 BUN 29 H Creatinine 0.94 Glucose 136 H Calcium 9.7 Consult Discharge Plan - Plan Referrals: Jaz Pascual CNP [Primary Care Provider] - Sarah Almazan CNP [Advanced Practice Nurse] - 01/10/19 1:45 pm Prescriptions: cefTRIAXone [Rocephin] 2,000 mg IVPB DAILY #28 vial (3) Sepsis Qualifiers: Qualified Code(s): A41.9 - Sepsis, unspecified organism (4) COPD (chronic obstructive pulmonary disease) Qualifiers: Qualified Code(s): J44.9 - Chronic obstructive pulmonary disease, unspecified (5) Diabetes Qualifiers: Diabetes mellitus type: type 2 Diabetes mellitus intermediate project manager insulin use: without intermediate project manager use Diabetes mellitus complication status: without complication Qualified Code(s): E11.9 - Type 2 diabetes mellitus without complications
[2018-12-31] MEDS: cefTRIAXone 2,000 MG in Water for inj. (sterile) 20 ML IVP SCH (11:40)
[2019-01-01] MEDS: *HR* Heparin 5,000 UNIT/ML VIAL SQ SCH ×2 (05:30→17:24)
[2019-01-01] MEDS: *HR* OxyCODONE/APAP 5/325 TABLET PO PRN ×3 (05:30→19:53)
[2019-01-01 05:33] LABS: Basophils # 0.1 K/mcL (0.0-0.2); Basophils % 1.1 %; Eosinophils # 0.5 K/mcL (0.0-0.6); Eosinophils % 5.1 %; Hematocrit 37.8 % (35.3-44.9); Hemoglobin 11.5 g/dL (11.5-15.4); Immature Granulocytes % 0.4 % (0-4); Lymphocytes % 42.9 %; Mean Corpuscular HGB Conc 30.4 g/dL (31.6-35.5); Mean Corpuscular Hemoglobin 26.2 pg (28.0-33.3); Mean Corpuscular Volume 86.1 fL (83.0-100.0); Monocytes # 0.7 K/mcL (0.0-1.3); Monocytes % 7.7 %; Platelet Count 398 K/mcL (140-400); Red Blood Count 4.39 M/mcL (3.82-4.97); Red Cell Distribution Width 14.2 % (11.5-14.5); Segmented Neutrophils % 42.8 %; White Blood Count 9.4 K/mcL (4.3-11.1)
[2019-01-01 05:52] LABS: BUN/Creatinine Ratio 40 (6-26); Blood Urea Nitrogen 41 mg/dL (6-20); Calcium 10.4 mg/dL (8.6-10.3); Carbon Dioxide 28 mEq/L (23-29); Chloride 101 mEq/L (98-107); Glucose 124 mg/dL (70-105); Osmolality,Calculated 296 (280-300); Sodium 137 mEq/L (136-145); eGFR For African Americans > 60 (> 60); eGFR For Non-African Americans 57 (> 60)
[2019-01-01] MEDS: Budesonide/Formoterol 160/4.5 1 PUFF INH IH SCH ×2 (07:29→21:53)
[2019-01-01] MEDS: Tiotropium 18 MCG inhalation IH SCH (07:29)
[2019-01-01] MEDS: Nicotine 21 MG PATCH.TD24 TD SCH (08:26)
[2019-01-01] MEDS: *HR* HYDROcodone/Acet 5/325 mg TABLET PO PRN ×3 (08:26→23:19)
[2019-01-01] MEDS: Insulin LISPRO 300 UNITS/3 ML VIAL SQ SCH ×4 (08:26→21:17)
[2019-01-01] MEDS: amLODIPine 5 MG TABLET PO SCH (08:27)
[2019-01-01] MEDS: Gabapentin 400 MG CAPSULE PO SCH ×3 (08:27→21:23)
[2019-01-01] MEDS: Cholecalciferol (D-3) 1,000 UNIT (25MCG) TABLET PO SCH (08:27)
[2019-01-01] MEDS: Insulin DETEMIR 100 UNIT/ML X5UNITS SQ SCH ×2 (08:27→21:23)
[2019-01-01] MEDS: BuPROPion XL (24 HR) 150 MG TABLET PO SCH (08:27)
[2019-01-01] MEDS: Lisinopril 20 MG TABLET PO SCH (08:27)
[2019-01-01] MEDS: tiZANidine 4 MG TABLET PO SCH ×3 (08:27→21:23)
[2019-01-01] MEDS: Lactobacillus 1 EACH CAP.SPRINK PO SCH ×2 (08:27→21:23)
[2019-01-01] MEDS: Famotidine 20 MG TABLET PO SCH (08:28)
--- NOTE | 2019-01-01 11:05 | Internal Med Progress Note ---
Hospitalist Progress Note - Encounter Date of Encounter: 01/01/19 Time of Encounter: 11:00 - Subjective Interval History: Patient is a 53-year-old female who presented due to left lower extremity cellulitis and found to have abscess status post I&D by podiatry on 12/19/18 and 12/28/18 with wound VAC [facility] head worker/case management assisting to continue certification process on 01/02/19 - Exam Vitals: Temp Pulse Resp BP Pulse Ox 98.2 F 69 16 114/66 94 01/01/19 07:47 01/01/19 07:47 01/01/19 07:47 01/01/19 07:47 01/01/19 07:47 Exam: Gen.: Nonacute distress, alert and oriented 3 ENT: Mucosal membranes moist Respiratory: Lungs are clear to auscultation bilaterally without any wheezing rhonchi or rales Cardiovascular: Normal S1 and S2 regular rate rhythm no murmurs rubs or gallops Abdomen: Soft, nontender and nondistended with positive bowel sounds Extremities: No lower extremity edema Skin: Normal color - Assessment and Plan (1) Goals of care, counseling/discussion Current Visit: Yes Status: Acute Assessment and Plan: [facility] head worker/case management assisting to continue certification process on 01/02/19 (2) Cellulitis of left leg Current Visit: Yes Status: Acute Assessment and Plan: Patient presented due to left lower extremity cellulitis and found to have abscess status post I&D by podiatry on 12/19/18 and 12/28/18 with wound VAC Intraoperative cultures are positive for K. pneumoniae and E. faecalis. Infectious disease following with recommendations for continue IV vancomycin and IV ceftriaxone. Patient per infectious disease will likely need IV antibiotics for 2-4 weeks after discharge; appreciate recommendations (3) Sepsis Current Visit: Yes Status: Resolved Assessment and Plan: Resolved; continue to monitor (4) COPD (chronic obstructive pulmonary disease) Current Visit: Yes Status: Chronic Assessment and Plan: Continue bronchodilators as needed. (5) Diabetes Current Visit: Yes Status: Chronic Assessment and Plan: Continue basal insulin twice daily and coverage with sliding-scale insulin DVT Prophylaxis: Subcutaneous heparin - Time Spent with Patient Total time spent is greater than 50% in coordination of care (as documented) at patient's floor/unit and/or counseling patient: Internal Medicine: Result - Labs CBC & Chem 7: 01/01/19 05:00 01/01/19 05:00 Labs: Short CBC 01/01/19 Range/Units 05:00 WBC 9.4 (4.3-11.1) K/mcL Hgb 11.5 (11.5-15.4) g/dL Hct 37.8 (35.3-44.9) % Plt Count 398 (140-400) K/mcL Neutrophils # 4.0 (1.6-8.9) K/mcL BMP 01/01/19 05:00 Sodium 137 Potassium 5.0 Chloride 101 Carbon Dioxide 28 BUN 41 H Creatinine 1.02 Glucose 124 H Calcium 10.4 H Consult Discharge Plan - Plan Referrals: Jaz Pascual CNP [Primary Care Provider] - Sarah Almazan CNP [Advanced Practice Nurse] - 01/10/19 1:45 pm Prescriptions: cefTRIAXone [Rocephin] 2,000 mg IVPB DAILY #28 vial (3) Sepsis Qualifiers: Qualified Code(s): A41.9 - Sepsis, unspecified organism (4) COPD (chronic obstructive pulmonary disease) Qualifiers: Qualified Code(s): J44.9 - Chronic obstructive pulmonary disease, unspecified (5) Diabetes Qualifiers: Diabetes mellitus type: type 2 Diabetes mellitus termite exterminator insulin use: without termite exterminator use Diabetes mellitus complication status: without complication Qualified Code(s): E11.9 - Type 2 diabetes mellitus without complications
[2019-01-01] MEDS: cefTRIAXone 2,000 MG in Water for inj. (sterile) 20 ML IVP SCH (12:33)
--- NOTE | 2019-01-01 15:32 | Infectious Disease Progress No ---
ID Progress Note Date of Encounter: 01/01/19 Time of Encounter: 15:30 - Subjective Subjective: Patient seen and examined. No acute events noted overnight. Postop day 10 from I&D of the left ankle and POD 1 from repeat washout. States overall she feels well. Denies fevers, chills, rigors. Denies chest pain, shortness of breath, or cough. Denies nausea, vomiting, diarrhea, or constipation. Reports one loose stool per day. Denies abdominal pain or urinary complaints. Reports mild pain at the surgical site. Denies oral thrush or skin rashes. - Objective CBC & Chem 7: 01/01/19 05:00 01/01/19 05:00 - Exam Vitals: Temp Pulse Resp BP Pulse Ox 97.7 F 58 16 91/52 95 01/01/19 12:06 01/01/19 12:06 01/01/19 12:06 01/01/19 12:06 01/01/19 12:06 Exam: GENERAL: Comfortable. Laying in bed NAD HEENT: NESSA, EOMI LUNGS: Good air sounds bilaterally, no wheezing or rhonchi CV: RRR, S1 S2 ABDOMEN: Soft, nontender, + bowel sounds NEURO: A&OX3; no focal deficit - Assessment and Plan (1) Sepsis Current Visit: Yes Status: Resolved The patient had 2 sepsis criteria on admission. Likely secondary to left lower extremity cellulitis and abscess. White blood cell count normal. Afebrile overnight. Tachycardia resolved. Blood cultures drawn 12/16/18 are negative 2 sets. Qualifiers: Qualified Code(s): A41.9 - Sepsis, unspecified organism SNOMED Code(s): 91119362 (2) Cellulitis of left leg Current Visit: Yes Status: Acute Location: Left lower extremity. Causative organism: Group B strep and Klebsiella pneumoniae and E. faecalis. Etiology: Unclear. The patient is unaware of any trauma to the leg. [place] onset of symptoms, but denies any known insect or animal bites. Purulent. Failed outpatient oral antibiotics (doxycycline). CT of the left lower extremity 12/16/18 showed diffuse subcutaneous edema involving the imaged lower leg and foot. No subcutaneous gas or organized drainable fluid collection was identified. No acute osseous abnormality identified. No CT evidence for osteomyelitis. CK level was normal. Repeat CT of the left lower extremity 12/18/18 shows a shallow soft tissue ulceration along the anterior aspect of the ankle with suspected 10 x 10 x 9 mm abscess or focal phlegmon is changed is superior to the area of the ulceration. Extensive subcutaneous edema and skin thickening consistent with cellulitis noted. No evidence of deep soft tissue infection, or acute bone or joint abnormality. Podiatry consulted. Status post I&D 12/19/[address] Jin. Intraoperative cultures are positive for K. pneumoniae and E. faecalis. Status post repeat washout 12/28/[address] Jin. Clinically improved. Currently on Vanc, Rocephin. SNOMED Code(s): 609315422 (3) Abscess Current Visit: Yes Status: Acute Location: Anterior aspect of the left ankle. Causative organism: Klebsiella pneumoniae, group B streptococcus and ampicillin sensitive Enterococcus faecalis. Podiatry consult. Status post I&D 12/19/[address] Jin. Status post repeat washout 12/28/18. Currently on Vanc, Rocephin. SNOMED Code(s): 618499749 (4) COPD (chronic obstructive pulmonary disease) Current Visit: Yes Status: Chronic Qualifiers: Qualified Code(s): J44.9 - Chronic obstructive pulmonary disease, unspecified SNOMED Code(s): 94011400 (5) Diabetes Current Visit: Yes Status: Chronic Uncontrolled. Hemoglobin A1c 12.5%. Recommend aggressive glucose monitoring and control to promote wound healing and prevent reinfection. Management per the primary team. Qualifiers: Diabetes mellitus type: type 2 Diabetes mellitus termite treater insulin use: without residential use Diabetes mellitus complication status: without complication Qualified Code(s): E11.9 - Type 2 diabetes mellitus without complications SNOMED Code(s): 23788299 (6) Penicillin allergy Current Visit: Yes Status: Acute Reports anaphylactic reaction to penicillin when taken 30 years ago. SNOMED Code(s): 66130063 - Recommendations Recommendations: Continue Rocephin 2 grams IV daily. Continue Vancomycin IV. Pharmacy to dose. Goal trough ~15. Duration of treatment depends on the clinical picture. Will discuss with Podiatry, but will likely need 2-4 weeks of IV antibiotics based on the extent of the infection. Will plan to follow how the patient does clinically and her inflammatory markers and decide from there. Monitor renal function for drug toxicity and dose adjust antibiotics. services account manager to assist with discharge planning. Recommend rehab placement on discharge. Will need weekly CBC, BUN/Cr, ESR, and CRP. Will need weekly IV care per protocol. Follow up with ID 01/10/19 at 1345. Consult Discharge Plan - Plan Referrals: Jaz Pascual, KELLY [Primary Care Provider] - Sarah Almazan CNP [Advanced Practice Nurse] - 01/10/19 1:45 pm Prescriptions: cefTRIAXone [Rocephin] 2,000 mg IVPB DAILY #28 vial
[2019-01-02] MEDS: *HR* Heparin 5,000 UNIT/ML VIAL SQ SCH ×2 (04:53→16:57)
[2019-01-02] MEDS: *HR* OxyCODONE/APAP 5/325 TABLET PO PRN ×2 (04:53→14:41)
[2019-01-02 05:34] LABS: Basophils # 0.1 K/mcL (0.0-0.2); Basophils % 0.8 %; Eosinophils # 0.5 K/mcL (0.0-0.6); Eosinophils % 5.2 %; Hematocrit 35.2 % (35.3-44.9); Hemoglobin 10.6 g/dL (11.5-15.4); Immature Granulocytes % 0.4 % (0-4); Lymphocytes # 3.6 K/mcL (0.6-4.6); Lymphocytes % 40.6 %; Mean Corpuscular HGB Conc 30.1 g/dL (31.6-35.5); Mean Corpuscular Hemoglobin 26.4 pg (28.0-33.3); Mean Corpuscular Volume 87.6 fL (83.0-100.0); Mean Platelet Volume 9.2 fL (9.4-12.4); Monocytes # 0.8 K/mcL (0.0-1.3); Monocytes % 8.5 %; Platelet Count 342 K/mcL (140-400); Red Blood Count 4.02 M/mcL (3.82-4.97); Red Cell Distribution Width 14.5 % (11.5-14.5); Segmented Neutrophils % 44.5 %
[2019-01-02 05:54] LABS: BUN/Creatinine Ratio 41 (6-26); Blood Urea Nitrogen 52 mg/dL (6-20); Calcium 9.6 mg/dL (8.6-10.3); Carbon Dioxide 26 mEq/L (23-29); Chloride 101 mEq/L (98-107); Glucose 205 mg/dL (70-105); Osmolality,Calculated 304 (280-300); Potassium 4.9 mEq/L (3.5-5.1); Sodium 137 mEq/L (136-145); eGFR For African Americans 54 (> 60); eGFR For Non-African Americans 44 (> 60)
[2019-01-02] MEDS: Budesonide/Formoterol 160/4.5 1 PUFF INH IH SCH (07:28)
[2019-01-02] MEDS: Tiotropium 18 MCG inhalation IH SCH (07:29)
[2019-01-02] MEDS: tiZANidine 4 MG TABLET PO SCH ×2 (08:16→13:55)
[2019-01-02] MEDS: Cholecalciferol (D-3) 1,000 UNIT (25MCG) TABLET PO SCH (08:16)
[2019-01-02] MEDS: BuPROPion XL (24 HR) 150 MG TABLET PO SCH (08:16)
[2019-01-02] MEDS: Gabapentin 400 MG CAPSULE PO SCH ×2 (08:17→13:54)
[2019-01-02] MEDS: amLODIPine 5 MG TABLET PO SCH (08:17)
[2019-01-02] MEDS: Nicotine 21 MG PATCH.TD24 TD SCH (08:17)
[2019-01-02] MEDS: Famotidine 20 MG TABLET PO SCH (08:17)
[2019-01-02] MEDS: Lactobacillus 1 EACH CAP.SPRINK PO SCH (08:17)
[2019-01-02] MEDS: Lisinopril 20 MG TABLET PO SCH (08:17)
[2019-01-02] MEDS: Insulin LISPRO 300 UNITS/3 ML VIAL SQ SCH ×3 (08:18→16:53)
[2019-01-02] MEDS: *HR* HYDROcodone/Acet 5/325 mg TABLET PO PRN (08:32)
[2019-01-02] MEDS: Insulin DETEMIR 100 UNIT/ML X5UNITS SQ SCH (08:36)
--- NOTE | 2019-01-02 09:34 | Internal Med Progress Note ---
Hospitalist Progress Note - Encounter Date of Encounter: 01/02/19 - Subjective Interval History: Patient is a 53-year-old female who presented due to left lower extremity cellulitis and found to have abscess status post I&D by podiatry on 12/19/18 and 12/28/18 with wound VAC Patient medically stable and awaiting placement to residential facility for strengthening conditioning whiting can worker/case management assisting to continue certification process today for placement - Exam Vitals: Temp Pulse Resp BP Pulse Ox 98.3 F 66 12 103/69 96 01/02/19 07:04 01/02/19 07:04 01/02/19 07:30 01/02/19 07:04 01/02/19 07:30 - Assessment and Plan (1) Goals of care, counseling/discussion Current Visit: Yes Status: Acute Assessment and Plan: Patient awaiting placement to residential facility for strengthening conditioning [place] worker/case management assisting to continue certification process today for placement (2) Cellulitis of left leg Current Visit: Yes Status: Acute Assessment and Plan: Patient presented due to left lower extremity cellulitis and found to have abscess status post I&D by podiatry on 12/19/18 and 12/28/18 with wound VAC Intraoperative cultures are positive for K. pneumoniae and E. faecalis. Infectious disease following with recommendations for continue IV vancomycin and IV ceftriaxone. Patient per infectious disease will likely need IV antibiotics for 2-4 weeks after discharge; appreciate recommendations (3) Sepsis Current Visit: Yes Status: Resolved Assessment and Plan: Resolved; continue to monitor (4) COPD (chronic obstructive pulmonary disease) Current Visit: Yes Status: Chronic Assessment and Plan: Continue bronchodilators as needed. (5) Diabetes Current Visit: Yes Status: Chronic Assessment and Plan: Continue basal insulin twice daily and coverage with sliding-scale insulin DVT Prophylaxis: Subcutaneous heparin - Time Spent with Patient Total time spent is greater than 50% in coordination of care (as documented) at patient's floor/unit and/or counseling patient: Internal Medicine: Result - Labs CBC & Chem 7: 01/02/19 05:15 01/02/19 05:15 Labs: Short CBC 01/02/19 Range/Units 05:15 WBC 9.0 (4.3-11.1) K/mcL Hgb 10.6 L (11.5-15.4) g/dL Hct 35.2 L (35.3-44.9) % Plt Count 342 (140-400) K/mcL Neutrophils # 4.0 (1.6-8.9) K/mcL BMP 01/02/19 05:15 Sodium 137 Potassium 4.9 Chloride 101 Carbon Dioxide 26 BUN 52 H Creatinine 1.27 H Glucose 205 H Calcium 9.6 Consult Discharge Plan - Plan Referrals: Jaz Pascual, SWITCHBOARD CLERK [Primary Care Provider] - Sarah Almazan CNP [Advanced Practice Nurse] - 01/10/19 1:45 pm Prescriptions: cefTRIAXone [Rocephin] 2,000 mg IVPB DAILY #28 vial (3) Sepsis Qualifiers: Qualified Code(s): A41.9 - Sepsis, unspecified organism (4) COPD (chronic obstructive pulmonary disease) Qualifiers: Qualified Code(s): J44.9 - Chronic obstructive pulmonary disease, unspecified (5) Diabetes Qualifiers: Diabetes mellitus type: type 2 Diabetes mellitus mcc insulin use: without mcc use Diabetes mellitus complication status: without complication Qualified Code(s): E11.9 - Type 2 diabetes mellitus without complications
--- NOTE | 2019-01-02 10:41 | Infectious Disease Progress No ---
ID Progress Note Date of Encounter: 01/02/19 Time of Encounter: 09:50 - Subjective Subjective: Patient seen and examined. No acute events noted overnight. Postop day 14 from I&D of the left ankle and POD 5 from repeat washout. States overall she feels well. Denies fevers, chills, rigors. Denies chest pain, shortness of breath, or cough. Denies nausea, vomiting, diarrhea, or constipation. Reports one loose stool per day. Denies abdominal pain or urinary complaints. Reports mild pain at the surgical site. Denies oral thrush or skin rashes. Reports some genital itching. - Objective CBC & Chem 7: 01/02/19 05:15 01/02/19 05:15 - Exam Vitals: Temp Pulse Resp BP Pulse Ox 97.9 F 64 16 94/61 96 01/02/19 10:14 01/02/19 10:14 01/02/19 10:14 01/02/19 10:14 01/02/19 10:14 Exam: Head: Atraumatic, normal inspection, normocephalic. Eye: EOMI, PERRLA, no scleral icterus noted. ENT: Mucous membranes moist. No odontogenic infection noted. Neck: Normal inspection, no meningismus. Respiratory: Clear to auscultation. No rales, respiratory distress, rhonchi, or wheezes noted. Cardiovascular: Regular rate and rhythm, S1 and S2 audible. No murmurs, rubs, or gallops. GI: Soft, nondistended, normal bowel sounds. Extremities:No joint swelling, pedal edema, or tenderness noted. Left foot and ankle dressing C/D/I. No drainage noted in the wound VAC canister. Neurological: Alert, oriented 3, no focal deficits. Psychiatric: normal affect, normal mood. Skin: Dry, intact, warm. Normal color. No rashes. - Assessment and Plan (1) Sepsis Status: Resolved The patient had 2 sepsis criteria on admission. Likely secondary to left lower extremity cellulitis and abscess. White blood cell count normal. Afebrile. Tachycardia resolved. Blood cultures drawn 12/16/18 are negative 2 sets. Qualifiers: Qualified Code(s): A41.9 - Sepsis, unspecified organism SNOMED Code(s): 85416699 (2) Cellulitis of left leg Status: Acute Location: Left lower extremity. Causative organism: Group B strep and Klebsiella pneumoniae and E. faecalis. Etiology: Unclear. The patient is unaware of any trauma to the leg. She does report [place] her onset of sym ptoms, but denies any known insect or animal bites. Purulent. Failed outpatient oral antibiotics (doxycycline). CT of the left lower extremity 12/16/18 showed diffuse subcutaneous edema involving the imaged lower leg and foot. No subcutaneous gas or organized drainable fluid collection was identified. No acute osseous abnormality identified. No CT evidence for osteomyelitis. CK level was normal. Repeat CT of the left lower extremity 12/18/18 shows a shallow soft tissue ulceration along the anterior aspect of the ankle with suspected 10 x 10 x 9 mm abscess or focal phlegmon is changed is superior to the area of the ulceration. Extensive subcutaneous edema and skin thickening consistent with cellulitis noted. No evidence of deep soft tissue infection, or acute bone or joint abnormality. Podiatry consulted. Status post I&D 12/19/[address] Jin. Intraoperative cultures are positive for K. pneumoniae and E. faecalis. Status post repeat washout 12/28/[address] Jin. Clinically improved. Currently on Vanc, Rocephin. SNOMED Code(s): 222402068 (3) Abscess Status: Acute Location: Anterior aspect of the left ankle. Causative organism: Klebsiella pneumoniae, group B streptococcus and ampicillin sensitive Enterococcus faecalis. Podiatry consult. Status post I&D 12/19/[address] Jin. Status post repeat washout 12/28/18. Currently on Vanc, Rocephin. SNOMED Code(s): 004522129 (4) COPD (chronic obstructive pulmonary disease) Status: Chronic Qualifiers: Qualified Code(s): J44.9 - Chronic obstructive pulmonary disease, unspecified SNOMED Code(s): 16969893 (5) Diabetes Status: Chronic Uncontrolled. Hemoglobin A1c 12.5%. Recommend aggressive glucose monitoring and control to promote wound healing and prevent reinfection. Management per the primary team. Qualifiers: Diabetes mellitus type: type 2 Diabetes mellitus senior care insulin use: without intermediate project manager use Diabetes mellitus complication status: without complication Qualified Code(s): E11.9 - Type 2 diabetes mellitus without complications SNOMED Code(s): 15129419 (6) Penicillin allergy Status: Acute Reports anaphylactic reaction to penicillin when taken 30 years ago. SNOMED Code(s): 91595482 (7) Vaginal candidiasis Status: Acute Likely secondary to IV antibiotics and diabetes. Give fluconazole 200mg PO x 1 dose now. SNOMED Code(s): 09687644 - Recommendations Recommendations: Repeat ESR and CRP. Wound care per podiatry. Diabetes management per the primary team. Continue Rocephin 2 grams IV daily. Continue Vancomycin IV. Pharmacy to dose. Goal trough ~15. Fluconazole 200mg PO x 1 dose now. Duration of treatment depends on the clinical picture. Will discuss with Podiatry, but will likely need 2-4 weeks of IV antibiotics based on the extent of the infection. Will plan to follow how the patient does clinically and her inflammatory markers and decide from there. Monitor renal function for drug toxicity and dose adjust antibiotics. access services librarian to assist with discharge planning. Recommend rehab placement on discharge. Will need weekly CBC, BUN/Cr, ESR, and CRP. Will need weekly IV care per protocol. Follow up with ID 01/10/19 at 1345. Consult Discharge Plan - Plan Referrals: Jaz Pascual CNP [Primary Care Provider] - Sarah Almazan CNP [Advanced Practice Nurse] - 01/10/19 1:45 pm Prescriptions: HYDROcodone/Acet 5/325 mg [[place] 5-325 mg] 1 tab PO Q8H PRN 3 Days #6 tablet PRN Reason: Moderate Pain cefTRIAXone [Rocephin] 2,000 mg IVPB DAILY #28 vial Vancomycin [Vancocin] 750 mg IV BID #14 vial - Attending Attestation I have personally performed a face to face evaluation on this patient. I have re viewed and agree with the care plan. History and Exam by me shows: Assessment and plan: 1.Left foot abscess noted on the CT scan. Causative organism group B streptococcus and klebsiella pneumoniae 2.sepsis 3.COPD 4.DM 2 5.PCN allergies Recommendations: Patient to be discharged on Rocephin and vancomycin to cover the group B strep, Klebsiella pneumoniae and Enterococcus faecalis Duration of treatment depends on the clinical picture but we will see her in clinic in 2 weeks and go from there. Appreciate orthopedics recommendations
[2019-01-02 10:59] LABS: C-Reactive Protein < 5 mg/L (Less than 10)
[2019-01-02] MEDS: cefTRIAXone 2,000 MG in Water for inj. (sterile) 20 ML IVP SCH (11:12)
--- NOTE | 2019-01-02 13:52 | Podiatry Progress Note ---
Date of Encounter: 01/02/19 Time of Encounter: 12:00 - Assessment and Plan (1) Diabetes Current Visit: Yes Status: Chronic Strict glucose control to promote healing and limit further complications Qualifiers: Diabetes mellitus type: type 2 Diabetes mellitus technician terminal and repeater insulin use: without alf use Diabetes mellitus complication status: without complication Qualified Code(s): E11.9 - Type 2 diabetes mellitus without complications (2) Abscess Current Visit: Yes Status: Acute -Post op day #5 1: Incision debridement multiple planes left foot and ankle, staged procedure #2: Application of PuraPly antimicrobial wound graft, left foot and ankle. #3 application and a shield amniotic graft left ankle#4: Application wound VAC by Dr. Jin on 12/28/2018 Patient self removed graft Wound vac remains intact. Wound vac intact and running without complication Reports dressing was changed last night per RN no drainage in wound vac container -Erythema and edema to foot and anterior lower extremity improving -WBC 9.0 -Wound cultures final for Klebsiella pneu.ssp pneumoniae and Enterococcus faecalis - ID following Currently on vanc and rocephin -Blood cultures final for no growth Plan: -Examined at bedside- no acute complications Wound vac to be changed tomorrow per nursing staff MWF changes as ordered Patient pending placement to ECF- per last SW note, has been accepted and will go soon -Okay from podiatry standpoint to d/c to ECF. -Follow up [facility] , schedule appointment prior to discharge Subjective Interval history: -Post op day #5 1: Incision debridement multiple planes left foot and ankle by Annabel on 12/28/2018. Patient resting comfortably on arrival. No acute distress. reports mild pain along lateral aspect of malleolus of LLE Denies any calf pain, sob, fevers, chills, n/v or fls wound vac intact and running without complication States it was changed yesterday Objective - Vital Signs Vital Signs: Vital Signs Temp Pulse Resp BP Pulse Ox 01/02/19 10:14 97.9 F 64 16 94/61 96 01/02/19 07:30 12 96 01/02/19 07:04 98.3 F 66 16 103/69 95 01/02/19 04:45 110/70 01/02/19 04:37 98.1 F 67 15 98/57 95 01/01/19 21:53 16 92 01/01/19 20:12 97.6 F 66 15 102/64 93 01/01/19 16:04 98.7 F 64 16 98/60 95 Intake and Output 01/01/19 01/02/19 01/02/19 23:59 07:59 15:59 Intake Total 1010 / 2360 Output Total 40 / 40 Balance 1010 / 1860 -40 / -40 Intake: IV Fluids 250 / 520 Vancocin 750 MG In 0.9 % Sodium 250 / 500 Chloride 250 ML @ 250 mls/hr IVPB Q12H [facility] Rx#:[id number] Oral 760 / 1840 Output: Wound Drainage 40 / 40 Left Foot 40 / 40 Other: Meal Dinner Percent of Meal Consumed 100% Stool Size Moderate Stool Consistency soft Stool Color Brown # Voids 1 5 2 # Bowel Movements 1 0 Weight 103.3 kg Blood Glucose* 133 182 207 Patient Weight 01/02/19 23:59 Weight 103.3 kg - Exam Exam: CONSTITUTIONAL: awake, alert and oriented VASCULAR: Toes warm, cap refill <3 seconds to all toes NEUROLOGICAL: Sensation intact with light touch to toes. Wound vac and dressing intact. Will leave intact at this time.Will need changed tomorrow if patient remains inpatient. No drainage to canister. - Lab Result Diagrams: 01/02/19 05:15 01/02/19 05:15 Labs: Abnormal lab results WBC 12.1 K/mcL (4.3-11.1) H 12/29/18 06:04 RBC 3.50 M/mcL (3.82-4.97) L 12/21/18 03:12 Hgb 10.6 g/dL (11.5-15.4) L 01/02/19 05:15 Hct 35.2 % (35.3-44.9) L 01/02/19 05:15 MCV 82.4 fL (83.0-100.0) L 12/18/18 00:11 MCH 26.4 pg (28.0-33.3) L 01/02/19 05:15 MCHC 30.1 g/dL (31.6-35.5) L 01/02/19 05:15 Plt Count 438 K/mcL (140-400) H 12/28/18 16:00 MPV 9.2 fL (9.4-12.4) L 01/02/19 05:15 11.6 K/mcL (1.6-8.9) H 12/28/18 16:00 4.8 K/mcL (0.6-4.6) H 12/30/18 05:21 1.6 K/mcL (0.0-1.3) H 12/17/18 04:14 Present (Not Present) A 12/21/18 03:12 ESR 39 mm/hr (0-15) H 01/02/19 05:15 Sodium 133 mEq/L (136-145) L 12/28/18 16:00 Potassium 5.4 mEq/L (3.5-5.1) H 12/28/18 16:00 Chloride 108 mEq/L (98-107) H 12/21/18 03:12 Carbon Dioxide 31 mEq/L (23-29) H 12/27/18 05:16 BUN 52 mg/dL (6-20) H 01/02/19 05:15 1.27 mg/dL (0.60-1.20) H 01/02/19 05:15 Est GFR ( Amer) 54 (> 60) L 01/02/19 05:15 Est GFR (Non-Af Amer) 44 (> 60) L 01/02/19 05:15 41 (6-26) H 01/02/19 05:15 Glucose 205 mg/dL (70-105) H 01/02/19 05:15 POC Glucose 133 mg/dL (70-99) H 01/01/19 20:11 12.5 % (-5.6) H 12/16/18 13:25 304 (280-300) H 01/02/19 05:15 Calcium 10.4 mg/dL (8.6-10.3) H 01/01/19 05:00 Magnesium 1.4 mg/dL (1.6-2.6) L 12/17/18 04:14 14 Units/L (30-223) L 12/16/18 13:00 259 mg/L (Less than 10) H 12/18/18 00:11 Vancomycin Trough 15 mcg/mL (5-10) H 01/02/19 08:25 Consult Discharge Plan - Plan Referrals: Jaz Pascual, COMMUNITY RELATIONS DIRECTOR [Primary Care Provider] - Sarah Almazan CNP [Advanced Practice Nurse] - 01/10/19 1:45 pm Prescriptions: cefTRIAXone [Rocephin] 2,000 mg IVPB DAILY #28 vial
[2019-01-02 15:00] VITALS: BP 98/60
--- NOTE | 2019-01-02 16:05 | Physician Discharge Referral ---
ExtendedCare Referral Info Institutional Level of Care: Skilled - Diagnosis (1) Goals of care, counseling/discussion Status: Acute (2) Cellulitis of left leg Status: Acute (3) Sepsis Status: Resolved (4) COPD (chronic obstructive pulmonary disease) Status: Chronic (5) Diabetes Status: Chronic - Transfer Medications Prescriptions: HYDROcodone/Acet 5/325 mg [[place] 5-325 mg] 1 tab PO Q8H PRN 3 Days #6 tablet PRN Reason: Moderate Pain cefTRIAXone [Rocephin] 2,000 mg IVPB DAILY #28 vial Vancomycin [Vancocin] 750 mg IV BID #14 vial Home Medications: Cetirizine HCl [Zyrtec] 10 mg PO DAILY 10/02/16 [History] Fluticasone/Salmeterol [Advair Hfa 115-21 Mcg Inhaler] 12 gm IH DAILY 10/02/16 [History] Paroxetine HCl [Paxil] 60 mg PO DAILY 10/02/16 [History] Tiotropium [Spiriva] 18 mcg IH 0700 10/02/16 [History] Tizanidine HCl 4 mg PO TID #15 tablet 09/22/17 [Rx] Atenolol [Tenormin] 25 mg PO DAILY 06/10/18 [History] Lisinopril [Zestril] 20 mg PO DAILY 06/10/18 [History] BuPROPion XL (24 HR) [Wellbutrin Xl] 150 mg PO DAILY 06/11/18 [History] Metformin HCl 500 mg PO BID 06/11/18 [History] Albuterol Sulfate [Ventolin Hfa] 2 puff PO Q4-6H PRN 12/16/18 [History] Cholecalciferol (Vitamin D3) [Vitamin D3] 10,000 unit PO DAILY 12/16/18 [History] Dicyclomine [Bentyl] 20 mg PO QID 12/16/18 [History] Gabapentin [Neurontin] 400 mg PO TID 12/16/18 [History] Glimepiride [Amaryl] 4 mg PO DAILY 12/16/18 [History] Ranitidine HCl [Acid Executive Administrator] 150 mg PO DAILY 12/16/18 [History] cefTRIAXone [Rocephin] 2,000 mg IVPB DAILY #28 vial 12/22/18 [Rx] HYDROcodone/Acet 5/325 mg [[place] 5-325 mg] 1 tab PO Q8H PRN 3 Days #6 tablet 01/02/19 [Rx] Lactobacillus [Culturelle] 1 each PO BID cap.sprink 01/02/19 [Rx] Vancomycin [Vancocin] 750 mg IV BID #14 vial 01/02/19 [Rx] amLODIPine [Norvasc] 5 mg PO DAILY tablet 01/02/19 [Rx] Allergies/Adverse Reactions: Allergy/AdvReac Type Severity Reaction Status Date / Time Penicillins [PCN] Allergy Anaphylaxis Verified 11/18/17 11:53 - Respiratory Orders Smoking Cessation: Smoking cessation has been advised. For more information, call the [place] Tobacco Quit Line at 2-872-QDNTNOW. CERTIFICATION: I certify that the transfer of the above named patient to an Extended Care Facility is necessary for the continuing treatment of the diagnosis listed. The above information is true and accurate reflection of patient's current condition. Confidential - Redisclosure prohibited without a patient's written consent.
--- NOTE | 2019-01-02 16:05 | Discharge Summary ---
Date of Encounter: 01/02/19 Time of Encounter: 11:00 - Discharge Diagnosis (1) Goals of care, counseling/discussion Priority: Primary Status: Acute (2) Cellulitis of left leg Priority: Primary Status: Acute (3) Sepsis Priority: Secondary Status: Resolved Qualifiers: Qualified Code(s): A41.9 - Sepsis, unspecified organism (4) COPD (chronic obstructive pulmonary disease) Priority: Secondary Status: Chronic Qualifiers: Qualified Code(s): J44.9 - Chronic obstructive pulmonary disease, unspecified (5) Diabetes Priority: Secondary Status: Chronic Qualifiers: Diabetes mellitus type: type 2 Diabetes mellitus retail account executive insulin use: without retail account executive use Diabetes mellitus complication status: without complication Qualified Code(s): E11.9 - Type 2 diabetes mellitus without complications Hospital course: Patient is a 53-year-old female with past medical history significant for COPD, diabetes presenting with complaints of leg redness and swelling. In the ER, she was started on vancomycin and she is being admitted for further management. During patients hospital stay podiatry was consulted for abscess and patient now status post I&D on 12/19/18 and 12/28/18 with wound VAC. She is medically stable and will be [facility] conditioning. - Time Spent with Patient Total time spent providing and/or coordinating discharge services: Time spent: Less than 30 minutes - Discharge Medications Prescriptions: New cefTRIAXone [Rocephin] 2,000 mg IVPB DAILY #28 vial Lactobacillus [Culturelle] 1 each PO BID cap.sprink HYDROcodone/Acet 5/325 mg [[place] 5-325 mg] 1 tab PO Q8H PRN 3 Days #6 tablet PRN Reason: Moderate Pain amLODIPine [Norvasc] 5 mg PO DAILY tablet Vancomycin [Vancocin] 750 mg IV BID #14 vial Continued Tizanidine HCl 4 mg PO TID #15 tablet Metformin HCl 500 mg PO BID BuPROPion XL (24 HR) [Wellbutrin Xl] 150 mg PO DAILY Albuterol Sulfate [Ventolin Hfa] 2 puff PO Q4-6H PRN PRN Reason: Shortness Of Breath Cholecalciferol (Vitamin D3) [Vitamin D3] 10,000 unit PO DAILY Gabapentin [Neurontin] 400 mg PO TID Glimepiride [Amaryl] 4 mg PO DAILY Ranitidine HCl [Acid Shoe Reconditioner] 150 mg PO DAILY Dicyclomine [Bentyl] 20 mg PO QID Fluticasone/Salmeterol [Advair Hfa 115-21 Mcg Inhaler] 12 gm IH DAILY Paroxetine HCl [Paxil] 60 mg PO DAILY Cetirizine HCl [Zyrtec] 10 mg PO DAILY Tiotropium [Spiriva] 18 mcg IH 0700 Lisinopril [Zestril] 20 mg PO DAILY Atenolol [Tenormin] 25 mg PO DAILY Home Medications: Cetirizine HCl [Zyrtec] 10 mg PO DAILY 10/02/16 [History] Fluticasone/Salmeterol [Advair Hfa 115-21 Mcg Inhaler] 12 gm IH DAILY 10/02/16 [History] Paroxetine HCl [Paxil] 60 mg PO DAILY 10/02/16 [History] Tiotropium [Spiriva] 18 mcg IH 0700 10/02/16 [History] Tizanidine HCl 4 mg PO TID #15 tablet 09/22/17 [Rx] Atenolol [Tenormin] 25 mg PO DAILY 06/10/18 [History] Lisinopril [Zestril] 20 mg PO DAILY 06/10/18 [History] BuPROPion XL (24 HR) [Wellbutrin Xl] 150 mg PO DAILY 06/11/18 [History] Metformin HCl 500 mg PO BID 06/11/18 [History] Albuterol Sulfate [Ventolin Hfa] 2 puff PO Q4-6H PRN 12/16/18 [History] Cholecalciferol (Vitamin D3) [Vitamin D3] 10,000 unit PO DAILY 12/16/18 [Histor y] Dicyclomine [Bentyl] 20 mg PO QID 12/16/18 [History] Gabapentin [Neurontin] 400 mg PO TID 12/16/18 [History] Glimepiride [Amaryl] 4 mg PO DAILY 12/16/18 [History] Ranitidine HCl [Acid Shoe Reconditioner] 150 mg PO DAILY 12/16/18 [History] cefTRIAXone [Rocephin] 2,000 mg IVPB DAILY #28 vial 12/22/18 [Rx] HYDROcodone/Acet 5/325 mg [[place] 5-325 mg] 1 tab PO Q8H PRN 3 Days #6 tablet 01/02/19 [Rx] Lactobacillus [Culturelle] 1 each PO BID cap.eliud 01/02/19 [Rx] Vancomycin [Vancocin] 750 mg IV BID #14 vial 01/02/19 [Rx] amLODIPine [Norvasc] 5 mg PO DAILY tablet 01/02/19 [Rx] Allergies/Adverse Reactions: Allergy/AdvReac Type Severity Reaction Status Date / Time Penicillins [PCN] Allergy Anaphylaxis Verified 11/18/17 11:53 Date of admission: 12/16/18 14:43 Primary care physician: Jaz Pascual CNP Consults: 12/16/18 15:11 Consult to Surgery [CONS] Routine Consulting Provider: Acute Care Surgery Reason for Consult: left leg celullitis Call Completed: Yes 12/16/18 17:32 Consult to Podiatry [CONS] Routine Consulting Provider: [facility] Reason for Consult: cellulitis with foot ulcer Call Completed: No 12/18/18 10:01 Consult to Infectious Diseases [CONS] Routine Consulting Provider: Infectious Disease [facility] Reason for Consult: Severe cellulitis, not respondto abx well Call Completed: Yes 12/21/18 15:00 Consult to Invasive Line Access Team [CONS] Routine Reason for Consult: midline in am for home atb Line Type: Midline 12/25/18 14:27 Consult to Invasive Line Access Team [CONS] Routine Reason for Consult: Picc Line Insertion Line Type: PICC - Constitutional Vitals: Temp Pulse Resp BP Pulse Ox 98.5 F 66 16 98/60 96 01/02/19 14:53 01/02/19 14:53 01/02/19 14:53 01/02/19 14:53 01/02/19 14:53 Exam: Gen.: Nonacute distress, alert and oriented 3 Skin: Normal color - Patient Status Disposition: Transfer SNF Condition: Fair - Discharge Instructions Follow Up With: Jaz Pascual CNP [Primary Care Provider] - Sarah Almazan CNP [Advanced Practice Nurse] - 01/10/19 1:45 pm
[2019-01-02] MEDS ORDERED: Fluconazole 100 MG TABLET PO ONE (18:00)
[2019-01-02] MEDS ORDERED: Aminoglycoside Consult 1 EACH MC ONE (19:44)
== END 2019-01-02 19:45 | DRG 710 ==
LOC: EMEROOARM 12:25 → SUATTDRO 14:43 → 3ANU 14:43
PROVIDERS: ADMIT Student in an Organized Health Care Education/Training Program; ATTEND Hospitalist